=== PATIENT | male | born 1990 | race Caucasian/White ===

== ENCOUNTER 2021-04-24 08:56 | Observation (INO) ==
[2021-04-24] MEDS ORDERED: diphenhydrAMINE 50 MG/ML VIAL IV STA (09:31)
[2021-04-24] MEDS ORDERED: ONDANSETRON INJ 2 MG/ML 2 ML VIAL IV STA (09:31)
[2021-04-24] MEDS ORDERED: SODIUM CHLORIDE 0.9% 1000ML 1,000 ML IV STA (09:31)
[2021-04-24] MEDS ORDERED: KETOROLAC TROMETHAMINE 15 MG/ML VIAL IV STA (09:31)
--- NOTE | 2021-04-24 09:54 | Emergency Department Note ---
Impression & Plan Acute febrile illness, Viral upper respiratory illness, Hives, Urine findings abnormal, Acute dehydration ED Provider Note CHIEF COMPLAINT: Flu-like symptoms, hives HISTORY OF PRESENTING ILLNESS: This is a 30-year-old male who presents to the emergency department by private vehicle with complaint of flu-like symptoms that started 3 days ago. Patient reports symptoms of headaches, body aches, fevers up to 103, and hives that have been off and on, primarily on his arms and legs, but has spread to his abdomen and back today. He reports the hives are itchy. He did not try any medications for the hives. He currently rates his body aches a 9/10. He has been taking ibuprofen and Tylenol for the body aches and fevers with minimal relief. He has not taken any medications today. He also states that he is feeling short of breath at times, mostly with activities, and has had a mild cough and some congestion. He denies a sore throat. He denies ear pain. He denies chest pain. He does have nausea but has not had vomiting or significant diarrhea. He denies urinary complaints. He denies abdominal pain. He is unsure of any sick contacts, and notes that his and children at home have not been ill. He has not received a flu shot or COVID-19 vaccination. He does note that he had COVID-19 infection about a month ago, testing positive on 03/18/2021. He feels that he fully recovered from his Covid infection at that time. He denies any recent travel. He denies hunting or spending time in the [place] and denies any known tick bites in the past few months. He does note that he and his just had a baby about 5 days ago and he spent a few days in the hospital with his during this period. REVIEW OF SYSTEMS: A complete 10 point review of systems was reviewed with the patient with pertinent positives and negatives as per history of present illness. All else were negative. PAST MEDICAL HISTORY: No significant past medical or surgical history SOCIAL HISTORY: Lives at home with family, he denies tobacco use ALLERGIES: No known allergies PHYSICAL EXAM: CONSTITUTIONAL: Pleasant and cooperative. Nontoxic-appearing and in no acute distress. Moderately dehydrated, but otherwise well appearing and well nourished. HEENT: Normocephalic, atraumatic. PERRL, EOMI. TMs normal bilateral. Pharynx is not erythematous, no edema or exudate. Dry mucous membranes. NECK: Supple, full active range of motion without discomfort. No nuchal rigidity or meningismus. No cervical adenopathy. Mild diffuse tenderness of the bilateral paraspinous and trapezius musculature. RESPIRATORY: Clear to auscultation bilaterally with no wheezing, crackles, rhonchi or stridor. No tachypnea or labored breathing, no accessory muscle use. Equal expansion bilaterally. CARDIOVASCULAR: Tachycardic rate, regular rhythm with no murmurs, rubs or gallops. Normal peripheral perfusion, 2+ distal pulses in all 4 extremities. No pitting edema. GASTROINTESTINAL: Soft, nontender to palpation throughout, nondistended. No palpable masses or HSM. Bowel sounds present in all quadrants. No CVA tenderness bilaterally. MUSCULOSKELETAL: Full range of motion of all joints without discomfort. INTEGUMENTARY: Diffuse urticarial rash noted on the bilateral aspects of the trunk, bilateral arms and legs. Blanches. No petechia or purpura. Negative Nikolsky sign. No blistering, pustules, or open areas. No discharge. NEUROLOGIC: Alert and oriented X 4 with normal affect. Cranial nerves II-XII grossly intact, no facial droop. No focal neurologic deficits noted. Normal strength and sensation in all 4 extremities. Normal speech. Normal gait observed. ED COURSE AND MEDICAL DECISION MAKING: CC: Patient presenting with complaint of flu-like symptoms and hives DIFFERENTIAL DIAGNOSIS: Includes, but not limited to viral URI, bronchitis, pneumonia, COVID-19 infection, influenza, dehydration, UTI, tickborne illness, otitis, pharyngitis, meningitis, sepsis, bacteremia, among others. INTERPRETATION OF LABS: No leukocytosis, mild neutrophilia, no anemia, mild thrombocytopenia, mild hyponatremia, no other significant electrolyte abnormalities, normal renal function, normal liver enzymes. Troponin negative. UA shows high specific gravity with 3+ protein, 2+ ketones, positive nitrites, large WBCs/RBCs with large epithelials concerning for contamination. No bacteriuria. Urine culture pending. Influenza A/B negative. EKG: Shows sinus tachycardia with a rate of 103 bpm, normal intervals, no ST elevation or depression, no ectopy by my interpretation. No previous EKGs available for comparison. MEDICATION RECONCILIATION: I attest that I have personally reviewed the patient's current medication list. INITIAL VITAL SIGNS REVIEW: I reviewed the patient's initial vital signs and interpret them as follows: T: Afebrile; BP: Normotensive; HR: Tachycardic; RR: Within normal limits; Pulse Ox: Within normal limits on room air. MDM SUMMARY: Patient was evaluated at bedside, history and physical exam performed. Patient is alert and oriented, in no acute distress, resting calmly in stretcher. He is afebrile, but is noted to be tachycardic and appears to be dehydrated clinically. He is neurologically intact with no focal deficits. No nuchal rigidity or m eningismus on exam. Patient primarily complaining of headaches, body aches, and nausea. No abdomina l tenderness on exam. Patient also complains of a mild cough and feeling short of breath at times, t estella he denies shortness of breath currently. Lungs are clear. No leg pain or swelling, patient is considered low risk for PE, with Well's score of 1.5. Patient does report some fevers at home, clinically he appears consistent with a flulike illness. Influenza ordered. Patient did test positive for COVID-19 about 1 month ago, this was not reordered at this time. Patient was also noticed to have diffuse urticarial rash on torso, arms and legs, which I suspect is also secondary to viral process. Cardiac monitoring: An order was placed for continuous cardiac monitoring. The monitor shows a rate of 105 bpm with sinus tachycardia rhythm. Orders were placed for labs including troponin, influenza, UA, IV fluid bolus x 2L for hydration, IV Toradol for body aches and headache, IV Zofran for nausea, IV Benadryl for hives, chest x-ray and EKG. Patient discussed with Dr. Isaac, who agrees with my assessment, plan, and disposition. Labs and imaging reviewed as above, no leukocytosis with a mild neutrophilia and mild thrombocytopenia, labs otherwise unremarkable. Troponin undetectable. Chest x-ray clear. EKG did not show any acute ischemic changes. Patient was reassessed after receiving fluids and Toradol, initially he appeared to be improved and tachycardia was resolved with heart rate in the 80s-90s. He also noted improvement in headache and body aches, and hives appeared to decrease initially after the IV Benadryl. I reassessed the patient again to discuss plan to discharge home, and the patient is now shivering and complaining of feeling worse. I rechecked his temp and it was 100.1 orally. Tylenol was ordered. I do suspect patient symptoms are most likely viral, however given the appearance of his UA I did feel it was reasonable to treat with a dose of IV Rocephin pending his urine culture and the patient was agreeable to this. This was ordered. Nursing notified that the patient's temp went back up to 39.2 and he is tachycardic in the 130s. He was reassessed by myself and also evaluated by Dr. Isaac, and the patient does appear to look worse on reassessment. Unclear etiology for the patient's febrile illness, his influenza test was negative. I do not clinically suspect bacterial meningitis as there is no meningismus on my exam, and he has been ill for 3 days. He does endorse muscle soreness throughout his neck and upper back, but is noted on several evaluations by myself and Dr. Isaac to have full range of motion of his neck. A viral meningitis could be possible, the option of LP was discussed with the patient by myself and Dr. Isaac, the patient preferred not to have this performed at this time. Additional orders were placed for blood cultures x2, lactic acid, procalcitonin, Lyme antibodies and anaplasmosis, and biofire respiratory panel. Given the patient's persistent worsening condition, I did feel that he warranted admission for further evaluation of his febrile illness. I spoke on the phone with CARLOS Cruz with [facility], who agrees to evaluate the patient for admission. His fever and tachycardia are downtrending after receiving Tylenol and additional IV fluids. The patient was stable at the time of admission. The chart was completed utilizing [employer] Speech voice recognition software. Grammatical errors, random word insertions, pronoun errors, and incomplete sentences are an occasional consequence of this system due to software limitations, ambient noise, and hardware issues. Any formal questions or concerns about the content, text, or information contained within the body of this dictation should be directly addressed to the nurse practitioner for clarification. Attending Attestation: I Silvano Isaac MD independently saw and evaluated this patient and agree with history and physical is otherwise documented by the nurse practitioner. See their note for full details. Patient case discussed with the nurse practitioner midway later through the course in the ER. Patient with 3 days of symptoms and lines of diffuse body pains headaches and generalized weakness. Does have some neck pain but not frankly meningitic. Patient has been observed on his tablet in his bed in no severe distress. Covid positive previously this February. Patient without focal neurological deficits. Does have fevers. No significant leukocytosis. Slight thrombocytopenia and hyponatremia noted. Question some component of dehydration received IV fluid. Given Tylenol here. Urine sample does appear with some contamination however is concerning especial ly with nitrates. Patient has received 2 g of Rocephin for any bacterial UTI coverage here. Patient again very fatigued appearing with weakness and some chills. Tachycardia and rash noted. Believe some component of fever exacerbating these. Symptoms seem more than likely viral in nature. Discussed with the patient option of proceeding possibly with lumbar puncture however feel its unlikely to be bacterial meningitis at this time. At this time the patient wished to wait on lumbar puncture. We will send additional viral respiratory panel as well as inflammatory infectious markers. Given the patient's generalized weakness and fatigue after multiple hours here in the ER believe further observation overnight would be warranted. Past Med/Surg History Medical History (Updated 04/24/21 @ 18:50 by CARLOS Cobb) COVID Surgical History (Updated 03/18/21 @ 16:22 by Eduarda Olsen PA-C) H/O vasectomy 01/2021 Family History Other No significant family history Social History Smoking Status: Never smoker Hx Alcohol Use: No Hx Substance Use: No Preferred Language: Belarusian Communication Ability: Effective Visual Impairment: No Limitations Hearing Ability: Normal Travel Registered Nurse Oncology Required: No marital status: Current Living Situation: Spouse Current Living Situation Comment: and 3 kids current occupational status: unemployed How many Children do You have: 3 Feels Safe at Home: Yes during the past year weight has: increased > 10 lbs Dental Care, Regularly: No Physical Activity Frequency: Does not Exercise Assistive Devices: None Allergies Allergies Allergy/AdvReac Type Severity Reaction Status Date / Time No Known Allergies Allergy Verified 04/24/21 11:18 Home Meds Home Medications Medication Instructions Recorded Confirmed acetaminophen 500 mg tablet 500 mg PO Q6H PRN 04/24/21 04/24/21 Previous Rx's Medication Instructions Recorded ondansetron 4 mg disintegrating 4 mg PO Q8H PRN #10 tab 04/24/21 tablet Results & Data (ED) Vital Signs Vital Signs - 24 hr 04/24/21 08:57 04/24/21 08:58 04/24/21 10:57 Temperature 37.3 C Temperature Source Temporal Artery Scan Pulse Rate 128 H Pulse Rate [Finger] 105 H 97 H Pulse Rhythm [Finger] Regular Regular Pulse Strength [Finger] Normal Normal Respiratory Rate 18 18 18 Respiratory Effort / Characteristics Non-Labored Non-Labored Respiratory Depth Normal Normal Respiratory Pattern Regular Blood Pressure 142/78 H Blood Pressure [Right Arm] 135/87 130/84 Blood Pressure Mean 99 Blood Pressure Mean [Right Arm] 103 99 Blood Pressure Position Sitting Blood Pressure Position [Right Arm] Sitting Sitting Pulse Oximetry 96 96 97 Oxygen Delivery Method Room Air Room Air Room Air Oxygen Flow Rate 96 Sepsis Recent Fever Within 48 Hours No Sepsis New/Unexplained Change in Mental Status No Sepsis Action Taken by Nursing No Action Required 04/24/21 14:00 04/24/21 15:00 Temperature 39.2 C H 38 C H Temperature Source Oral Oral Pulse Rate Pulse Rate [Finger] 123 H 112 H Pulse Rhythm [Finger] Regular Regular Pulse Strength [Finger] Normal Normal Respiratory Rate 20 16 Respiratory Effort / Characteristics Non-Labored Non-Labored Respiratory Depth Normal Normal Respiratory Pattern Regular Regular Blood Pressure Blood Pressure [Right Arm] 148/98 H 123/73 Blood Pressure Mean Blood Pressure Mean [Right Arm] 114 89 Blood Pressure Position Blood Pressure Position [Right Arm] Sitting Lying Pulse Oximetry 96 96 Oxygen Delivery Method Room Air Room Air Oxygen Flow Rate Sepsis Recent Fever Within 48 Hours Sepsis New/Unexplained Change in Mental Status Sepsis Action Taken by Nursing Laboratory Data Result diagrams: 04/24/21 09:46 04/24/21 16:10 Lab Results 04/24/21 04/24/21 04/24/21 Range/Units 09:46 09:46 11:10 WBC 10.51 (4.8-10.8) K/uL RBC 5.18 (4.7-6.1) M/uL Hgb 14.9 (14.0-18.0) g/dL Hct 44.0 (42-52) % MCV 84.9 (80-100) fL MCH 28.8 (25-34) pg MCHC 33.9 (32-36) g/dL RDW Std Deviation 41.1 (36.4-46.3) fL RDW Coeff of Rhoda 13.2 (11.5-14.5) % Plt Count 117 L (130-400) K/uL MPV 10.9 H (7.4-10.4) fL Immature Gran % (Auto) 0.2 % Neut % (Auto) 89.0 % Lymph % (Auto) 4.6 % [place] % (Auto) 5.1 % Eos % (Auto) 1.1 % Baso % (Auto) 0.0 % Neut # (Auto) 9.35 H (1.4-6.5) K/uL Lymph # (Auto) 0.48 L (1.2-3.4) K/uL [place] # (Auto) 0.54 (0.11-0.59) K/uL Eos # (Auto) 0.12 (0-0.5) K/uL Baso # (Auto) 0.00 (0-0.2) K/uL Immature Gran # (Auto) 0.02 (0.00-0.02) K/uL ESR (0-15) mm/hr Sodium 131 L (136-145) mmol/L Potassium 3.8 (3.5-5.1) mmol/L Chloride 99 (98-107) mmol/L Carbon Dioxide 24 (21-32) mmol/L Anion Gap 8.0 (3-11) BUN 17 (7-18) mg/dl Creatinine 1.17 (0.6-1.4) mg/dl Est Cr Clr Drug Dosing 112.0 ml/min Est GFR ( Amer) 97.1 ml/min Est GFR (Non-Af Amer) 83.8 ml/min BUN/Creatinine Ratio 14.7 (10-20) Glucose 134 H (70-99) mg/dl Lactate (0.4-2.0) mmol/L Calcium 9.4 (8.5-10.1) mg/dl Total Bilirubin 0.9 (0.2-1) mg/dl AST 25 (15-37) U/L ALT 51 (12-78) Alkaline Phosphatase 75 (45-117) U/L Total Creatine Kinase (39-308) U/L Troponin I < 0.015 (0-0.045) ng/ml C-Reactive Protein (0-0.29) mg/dl Total Protein 8.1 (6.4-8.2) gm/dl Albumin 3.5 (3.4-5.0) gm/dl Globulin 4.6 H (2.5-4.0) gm/dl Albumin/Globulin Ratio 0.8 L (0.9-2) Procalcitonin (0-0.5) ng/ml Urine Color Urine Appearance (Clear) Urine pH (4.5-7.5) Ur Specific Crosby (1.000-1.030) Urine Protein (Negative) Urine Glucose (UA) (Negative) Urine Ketones (Negative) Urine Blood (Negative) Urine Nitrite (Negative) Urine Bilirubin (Negative) Urine Urobilinogen (Negative) Ur Leukocyte Esterase (Negative) Urine WBC (Auto) (0-5) /hpf Urine RBC (Auto) (0-4) /hpf U Hyaline Cast (Auto) (0-5) /lpf U Epithel Cells (Auto) (0-5) /lpf Urine Bacteria (Auto) (Negative) Ur Renal Epithelial Cell Granular Casts (0) /lpf Adenovirus (PCR) (NotDetected) Anaplasma Smear B. pertussis DNA (PCR) (NotDetected) B.parapertussis DNA PCR (NotDetected) Lyme Disease IgG Ab (Negative) Lyme Disease IgM Ab (Negative) C. pneumoniae DNA (PCR) (NotDetected) Coronavirus OC43 (PCR) (NotDetected) Coronavirus HKU1 (PCR) (NotDetected) Coronavirus 229E (PCR) (NotDetected) SARS-CoV-2 (PCR) (NotDetected) Coronavirus NL63 (PCR) (NotDetected) Human Metapneumovir PCR (NotDetected) Influenza Type A (PCR) (NotDetected) Influ A Molecular Assay Negative (Negative) Influenza Type B (PCR) (NotDetected) Influ B Molecular Assay Negative (Negative) M. pneumoniae (PCR) (NotDetected) Parainfluenza 1 (PCR) (NotDetected) Parainfluenza 2 (PCR) (NotDetected) Parainfluenza 3 (PCR) (NotDetected) Parainfluenza 4 (PCR) (NotDetected) RSV (PCR) (NotDetected) Entero/Rhino (PCR) (NotDetected) 04/24/21 04/24/21 04/24/21 Range/Units 13:05 16:10 16:10 WBC (4.8-10.8) K/uL RBC (4.7-6.1) M/uL Hgb (14.0-18.0) g/dL Hct (42-52) % MCV (80-100) fL MCH (25-34) pg MCHC (32-36) g/dL RDW Std Deviation (36.4-46.3) fL RDW Coeff of Rhoda (11.5-14.5) % Plt Count (130-400) K/uL MPV (7.4-10.4) fL Immature Gran % (Auto) % Neut % (Auto) % Lymph % (Auto) % [place] % (Auto) % Eos % (Auto) % Baso % (Auto) % Neut # (Auto) (1.4-6.5) K/uL Lymph # (Auto) (1.2-3.4) K/uL [place] # (Auto) (0.11-0.59) K/uL Eos # (Auto) (0-0.5) K/uL Baso # (Auto) (0-0.2) K/uL Immature Gran # (Auto) (0.00-0.02) K/uL ESR (0-15) mm/hr Sodium (136-145) mmol/L Potassium (3.5-5.1) mmol/L Chloride (98-107) mmol/L Carbon Dioxide (21-32) mmol/L Anion Gap (3-11) BUN (7-18) mg/dl Creatinine (0.6-1.4) mg/dl Est Cr Clr Drug Dosing ml/min Est GFR ( Amer) ml/min Est GFR (Non-Af Amer) ml/min BUN/Creatinine Ratio (10-20) Glucose (70-99) mg/dl Lactate 1.2 (0.4-2.0) mmol/L Calcium (8.5-10.1) mg/dl Total Bilirubin (0.2-1) mg/dl AST (15-37) U/L ALT (12-78) Alkaline Phosphatase (45-117) U/L Total Creatine Kinase (39-308) U/L Troponin I (0-0.045) ng/ml C-Reactive Protein (0-0.29) mg/dl Total Protein (6.4-8.2) gm/dl Albumin (3.4-5.0) gm/dl Globulin (2.5-4.0) gm/dl Albumin/Globulin Ratio (0.9-2) Procalcitonin (0-0.5) ng/ml Urine Color [place] Urine Appearance Cloudy A (Clear) Urine pH 5.5 (4.5-7.5) Ur Specific Crosby 1.040 H (1.000-1.030) Urine Protein 3+ H (Negative) Urine Glucose (UA) Negative (Negative) Urine Ketones 2+ H (Negative) Urine Blood 1+ H (Negative) Urine Nitrite Positive A (Negative) Urine Bilirubin 1+ H (Negative) Urine Urobilinogen Negative (Negative) Ur Leukocyte Esterase Trace H (Negative) Urine WBC (Auto) 10-30 H (0-5) /hpf Urine RBC (Auto) 10-30 H (0-4) /hpf U Hyaline Cast (Auto) 1-5 (0-5) /lpf U Epithel Cells (Auto) >30 H (0-5) /lpf Urine Bacteria (Auto) Negative (Negative) Ur Renal Epithelial Cell Not Reportable Granular Casts 1-5 H (0) /lpf Adenovirus (PCR) (NotDetected) Anaplasma Smear See Comment B. pertussis DNA (PCR) (NotDetected) B.parapertussis DNA PCR (NotDetected) Lyme Disease IgG Ab (Negative) Lyme Disease IgM Ab (Negative) C. pneumoniae DNA (PCR) (NotDetected) Coronavirus OC43 (PCR) (NotDetected) Coronavirus HKU1 (PCR) (NotDetected) Coronavirus 229E (PCR) (NotDetected) SARS-CoV-2 (PCR) (NotDetected) Coronavirus NL63 (PCR) (NotDetected) Human Metapneumovir PCR (NotDetected) Influenza Type A (PCR) (NotDetected) Influ A Molecular Assay (Negative) Influenza Type B (PCR) (NotDetected) Influ B Molecular Assay (Negative) M. pneumoniae (PCR) (NotDetected) Parainfluenza 1 (PCR) (NotDetected) Parainfluenza 2 (PCR) (NotDetected) Parainfluenza 3 (PCR) (NotDetected) Parainfluenza 4 (PCR) (NotDetected) RSV (PCR) (NotDetected) Entero/Rhino (PCR) (NotDetected) 04/24/21 04/24/21 04/24/21 Range/Units 16:10 16:10 16:10 WBC (4.8-10.8) K/uL RBC (4.7-6.1) M/uL Hgb (14.0-18.0) g/dL Hct (42-52) % MCV (80-100) fL MCH (25-34) pg MCHC (32-36) g/dL RDW Std Deviation (36.4-46.3) fL RDW Coeff of Rhoda (11.5-14.5) % Plt Count (130-400) K/uL MPV (7.4-10.4) fL Immature Gran % (Auto) % Neut % (Auto) % Lymph % (Auto) % [place] % (Auto) % Eos % (Auto) % Baso % (Auto) % Neut # (Auto) (1.4-6.5) K/uL Lymph # (Auto) (1.2-3.4) K/uL [place] # (Auto) (0.11-0.59) K/uL Eos # (Auto) (0-0.5) K/uL Baso # (Auto) (0-0.2) K/uL Immature Gran # (Auto) (0.00-0.02) K/uL ESR 55 H (0-15) mm/hr Sodium (136-145) mmol/L Potassium (3.5-5.1) mmol/L Chloride (98-107) mmol/L Carbon Dioxide (21-32) mmol/L Anion Gap (3-11) BUN (7-18) mg/dl Creatinine (0.6-1.4) mg/dl Est Cr Clr Drug Dosing ml/min Est GFR ( Amer) ml/min Est GFR (Non-Af Amer) ml/min BUN/Creatinine Ratio (10-20) Glucose (70-99) mg/dl Lactate (0.4-2.0) mmol/L Calcium (8.5-10.1) mg/dl Total Bilirubin (0.2-1) mg/dl AST (15-37) U/L ALT (12-78) Alkaline Phosphatase (45-117) U/L Total Creatine Kinase 116 (39-308) U/L Troponin I (0-0.045) ng/ml C-Reactive Protein 17.60 H (0-0.29) mg/dl Total Protein (6.4-8.2) gm/dl Albumin (3.4-5.0) gm/dl Globulin (2.5-4.0) gm/dl Albumin/Globulin Ratio (0.9-2) Procalcitonin 1.37 H (0-0.5) ng/ml Urine Color Urine Appearance (Clear) Urine pH (4.5-7.5) Ur Specific Cros[place] (1.000-1.030) Urine Protein (Negative) Urine Glucose (UA) (Negative) Urine Ketones (Negative) Urine Blood (Negative) Urine Nitrite (Negative) Urine Bilirubin (Negative) Urine Urobilinogen (Negative) Ur Leukocyte Esterase (Negative) Urine WBC (Auto) (0-5) /hpf Urine RBC (Auto) (0-4) /hpf U Hyaline Cast (Auto) (0-5) /lpf U Epithel Cells (Auto) (0-5) /lpf Urine Bacteria (Auto) (Negative) Ur Renal Epithelial Cell Granular Casts (0) /lpf Adenovirus (PCR) (NotDetected) Anaplasma Smear B. pertussis DNA (PCR) (NotDetected) B.parapertussis DNA PCR (NotDetected) Lyme Disease IgG Ab Negative (Negative) Lyme Disease IgM Ab Negative (Negative) C. pneumoniae DNA (PCR) (NotDetected) Coronavirus OC43 (PCR) (NotDetected) Coronavirus HKU1 (PCR) (NotDetected) Coronavirus 229E (PCR) (NotDetected) SARS-CoV-2 (PCR) (NotDetected) Coronavirus NL63 (PCR) (NotDetected) Human Metapneumovir PCR (NotDetected) Influenza Type A (PCR) (NotDetected) Influ A Molecular Assay (Negative) Influenza Type B (PCR) (NotDetected) Influ B Molecular Assay (Negative) M. pneumoniae (PCR) (NotDetected) Parainfluenza 1 (PCR) (NotDetected) Parainfluenza 2 (PCR) (NotDetected) Parainfluenza 3 (PCR) (NotDetected) Parainfluenza 4 (PCR) (NotDetected) RSV (PCR) (NotDetected) Entero/Rhino (PCR) (NotDetected) 04/24/21 04/24/21 Range/Units 16:10 16:15 WBC (4.8-10.8) K/uL RBC (4.7-6.1) M/uL Hgb (14.0-18.0) g/dL Hct (42-52) % MCV (80-100) fL MCH (25-34) pg MCHC (32-36) g/dL RDW Std Deviation (36.4-46.3) fL RDW Coeff of Rhoda (11.5-14.5) % Plt Count (130-400) K/uL MPV (7.4-10.4) fL Immature Gran % (Auto) % Neut % (Auto) % Lymph % (Auto) % [place] % (Auto) % Eos % (Auto) % Baso % (Auto) % Neut # (Auto) (1.4-6.5) K/uL Lymph # (Auto) (1.2-3.4) K/uL [place] # (Auto) (0.11-0.59) K/uL Eos # (Auto) (0-0.5) K/uL Baso # (Auto) (0-0.2) K/uL Immature Gran # (Auto) (0.00-0.02) K/uL ESR (0-15) mm/hr Sodium (136-145) mmol/L Potassium (3.5-5.1) mmol/L Chloride (98-107) mmol/L Carbon Dioxide (21-32) mmol/L Anion Gap (3-11) BUN (7-18) mg/dl Creatinine (0.6-1.4) mg/dl Est Cr Clr Drug Dosing ml/min Est GFR ( Amer) ml/min Est GFR (Non-Af Amer) ml/min BUN/Creatinine Ratio (10-20) Glucose 125 H (70-99) mg/dl Lactate (0.4-2.0) mmol/L Calcium (8.5-10.1) mg/dl Total Bilirubin (0.2-1) mg/dl AST (15-37) U/L ALT (12-78) Alkaline Phosphatase (45-117) U/L Total Creatine Kinase (39-308) U/L Troponin I (0-0.045) ng/ml C-Reactive Protein (0-0.29) mg/dl Total Protein (6.4-8.2) gm/dl Albumin (3.4-5.0) gm/dl Globulin (2.5-4.0) gm/dl Albumin/Globulin Ratio (0.9-2) Procalcitonin (0-0.5) ng/ml Urine Color Urine Appearance (Clear) Urine pH (4.5-7.5) Ur Specific [place] (1.000-1.030) Urine Protein (Negative) Urine Glucose (UA) (Negative) Urine Ketones (Negative) Urine Blood (Negative) Urine Nitrite (Negative) Urine Bilirubin (Negative) Urine Urobilinogen (Negative) Ur Leukocyte Esterase (Negative) Urine WBC (Auto) (0-5) /hpf Urine RBC (Auto) (0-4) /hpf U Hyaline Cast (Auto) (0-5) /lpf U Epithel Cells (Auto) (0-5) /lpf Urine Bacteria (Auto) (Negative) Ur Renal Epithelial Cell Granular Casts (0) /lpf Adenovirus (PCR) Not Detected (NotDetected) Anaplasma Smear B. pertussis DNA (PCR) Not Detected (NotDetected) B.parapertussis DNA PCR Not Detected (NotDetected) Lyme Disease IgG Ab (Negative) Lyme Disease IgM Ab (Negative) C. pneumoniae DNA (PCR) Not Detected (NotDetected) Coronavirus OC43 (PCR) Not Detected (NotDetected) Coronavirus HKU1 (PCR) Not Detected (NotDetected) Coronavirus 229E (PCR) Not Detected (NotDetected) SARS-CoV-2 (PCR) DETECTED A* (NotDetected) Coronavirus NL63 (PCR) Not Detected (NotDetected) Human Metapneumovir PCR Not Detected (NotDetected) Influenza Type A (PCR) Not Detected (NotDetected) Influ A Molecular Assay (Negative) Influenza Type B (PCR) Not Detected (NotDetected) Influ B Molecular Assay (Negative) M. pneumoniae (PCR) Not Detected (NotDetected) Parainfluenza 1 (PCR) Not Detected (NotDetected) Parainfluenza 2 (PCR) Not Detected (NotDetected) Parainfluenza 3 (PCR) Not Detected (NotDetected) Parainfluenza 4 (PCR) Not Detected (NotDetected) RSV (PCR) Not Detected (NotDetected) Entero/Rhino (PCR) Not Detected (NotDetected) Administered Medications Ceftriaxone Sodium 2,000 mg/ (Dextrose) 50 mls @ 100 mls/hr IV Q12H [facility]; Protocol Stop: 05/05/21 01:59 Last Infusion: 04/25/21 03:56 Dose: 0 mls/hr Documented by: [id number] Admin: 04/25/21 01:49 Dose: 100 mls/hr Documented by: [id number] Acyclovir Sodium 750 mg/ (Dextrose) 265 mls @ 250 mls/hr IV Q8H [facility] Stop: 05/04/21 18:29 Last Infusion: 04/25/21 03:56 Dose: 0 mls/hr Documented by: [id number] Admin: 04/25/21 01:57 Dose: 250 mls/hr Documented by: [id number] Infusion: 04/24/21 20:56 Dose: 0 mls/hr Documented by: [id number] Admin: 04/24/21 19:29 Dose: 250 mls/hr Documented by: [id number] Vancomycin HCl 1,000 mg/ (Sodium Chloride) 270 mls @ 200 mls/hr IV Q8H [facility] Stop: 05/05/21 03:59 Last Infusion: 04/25/21 05:18 Dose: 0 mls/hr Documented by: [id number] Admin: 04/25/21 03:56 Dose: 200 mls/hr Documented by: [id number] Ibuprofen (Ibuprofen 600 Mg Tab) 600 mg PO Q8H PRN PRN Reason: fever Stop: 05/24/21 20:40 Last Admin: 04/24/21 20:56 Dose: 600 mg Documented by: [id number] Discontinued Medications Acetaminophen (Acetaminophen 500 Mg Tab) 1,000 mg PO NOW STA Stop: 04/24/21 14:18 Last Admin: 04/24/21 14:35 Dose: 1,000 mg Documented by: [id number] Acetaminophen (Acetaminophen 325 Mg Tab) 650 mg PO NOW STA Stop: 04/24/21 17:47 Last Admin: 04/24/21 19:19 Dose: 650 mg Documented by: [id number] Acetaminophen (Acetaminophen 325 Mg Tab) 650 mg PO Q4H [facility] Stop: 05/24/21 20:40 Last Admin: 04/24/21 23:00 Dose: Not Given Documented by: [id number] Acetaminophen (Acetaminophen 325 Mg Tab) 650 mg PO Q4H [facility] Stop: 04/25/21 07:31 Last Admin: 04/25/21 03:56 Dose: 650 mg Documented by: [id number] Admin: 04/24/21 23:43 Dose: 650 mg Documented by: [id number] Diphenhydramine HCl (Diphenhydramine 50 Mg/Ml Vial) 50 mg IV NOW STA Stop: 04/24/21 09:32 Last Admin: 04/24/21 09:56 Dose: 50 mg Documented by: [id number] Sodium Chloride (Nss 1000ml) 1,000 mls @ 999 mls/hr IV .Q1H1M STA Stop: 04/24/21 10:31 Last Infusion: 04/24/21 10:58 Dose: 999 mls/hr Documented by: [id number] Admin: 04/24/21 09:57 Dose: 999 mls/hr Documented by: [id number] Ceftriaxone Sodium (Rocephin) 2,000 mg in 70 mls @ 140 mls/hr IV NOW STA Stop: 04/24/21 14:46 Last Infusion: 04/24/21 15:06 Dose: 140 mls/hr Documented by: [id number] Admin: 04/24/21 14:36 Dose: 140 mls/hr Documented by: [id number] Sodium Chloride (Nss 1000ml) 1,000 mls @ 999 mls/hr IV .Q1H1M ONE Stop: 04/24/21 16:28 Last Infusion: 04/24/21 17:08 Dose: 999 mls/hr Documented by: [id number] Admin: 04/24/21 16:07 Dose: 999 mls/hr Documented by: [id number] Dexamethasone 10 mg/ Syringe 2.5 mls @ 1 mls/min IV ONE ONE Stop: 04/24/21 17:33 Last Admin: 04/24/21 18:43 Dose: 1 mls/min Documented by: [id number] Vancomycin HCl 2,500 mg/ (Sodium Chloride) 550 mls @ 180 mls/hr IV NOW STA Stop: 04/24/21 20:54 Last Infusion: 04/24/21 23:00 Dose: 0 mls/hr Documented by: [id number] Admin: 04/24/21 19:20 Dose: 180 mls/hr Documented by: [id number] Parenteral Electrolytes (Normosol-R) 1,000 mls @ 90 mls/hr IV .Q11H7M ONE Stop: 04/25/21 05:20 Last Infusion: 04/25/21 06:30 Dose: 0 mls/hr Documented by: [id number] Admin: 04/24/21 19:20 Dose: 90 mls/hr Documented by: [id number] Ibuprofen (Ibuprofen 600 Mg Tab) Confirm Administered Dose 1,200 mg PO .STK-MED ONE Stop: 04/24/21 20:53 Last Admin: 04/24/21 20:56 Dose: Not Given Documented by: [id number] Ketorolac Tromethamine (Ketorolac Tromethamine 15 Mg/Ml Vial) 15 mg IV NOW STA Stop: 04/24/21 09:32 Last Admin: 04/24/21 09:56 Dose: 15 mg Documented by: [id number] Ondansetron HCl (Ondansetron Inj 2 Mg/Ml 2 Ml Vial) 4 mg IV NOW STA Stop: 04/24/21 09:32 Last Admin: 04/24/21 09:57 Dose: 4 mg Documented by: [id number] Imaging Data Radiologist's Impression: Chest X-Ray 04/24/21 09:31 SINGLE VIEW CHEST CLINICAL HISTORY: Dyspnea. FINDINGS: An AP, portable, upright chest radiograph is obtained. No prior studies are available for comparison at the time of dictation. The cardiomediastinal silhouette is unremarkable. The lungs and pleural spaces are clear. No pneumothorax is seen. The bony thorax is grossly intact. IMPRESSION: No active disease in the chest. ACT 112: Negative or not required by law. Electronically signed by: Emeterio Man M.D. 04/24/2021 9:58 AM Discharge Plan Visit Data Chief Complaint: Shortness of Breath/Dyspnea Stated Complaint: HEADACHE, SOB, NAUSEA, HIVES ED Provider: Silvano Isaac ED Midlevel Provider: Jessica Theodore Discharge Problem: Acute febrile illness, Viral upper respiratory illness, Hives, Urine findings abnormal, Acute dehydration Patient Disposition: Admitted As Inpatient Condition: Good Discharge Instructions Interventions: ED Discharge Assessment Last Done: 04/24/21 20:09
--- NOTE | 2021-04-24 10:00 | XRay Report ---
SINGLE VIEW CHEST CLINICAL HISTORY: Dyspnea. FINDINGS: An AP, portable, upright chest radiograph is obtained. No prior studies are available for c omparison at the time of dictation. The cardiomediastinal silhouette is unremarkable. The lungs and pleural spaces are clear. No pneumothorax is seen. The bony thorax is grossly intact. IMPRESSION: No active disease in the chest. ACT 112: Negative or not required by law. Electronically signed by: Emeterio Man M.D. 04/24/2021 9:58 AM
[2021-04-24 10:07] LABS: Eosinophils # (auto) 0.12 K/uL (0-0.5); Eosinophils % (auto) 1.1 %; Hemoglobin 14.9 g/dL (14.0-18.0); Immature Granulocytes # (auto) 0.02 K/uL (0.00-0.02); Immature Granulocytes % (auto) 0.2 %; Lymphocytes # (auto) 0.48 K/uL (1.2-3.4); Lymphocytes % (auto) 4.6 %; Mean Corpuscular Hemoglobin 28.8 pg (25-34); Mean Corpuscular Hgb Conc 33.9 g/dL (32-36); Mean Corpuscular Volume 84.9 fL (80-100); Mean Platelet Volume 10.9 fL (7.4-10.4); Monocytes # (auto) 0.54 K/uL (0.11-0.59); Monocytes % (auto) 5.1 %; Neutrophils # (auto) 9.35 K/uL (1.4-6.5); Platelet Count 117 K/uL (130-400); RDW Coefficient of Variation 13.2 % (11.5-14.5); RDW Standard Deviation 41.1 fL (36.4-46.3); Red Blood Count 5.18 M/uL (4.7-6.1); White Blood Count 10.51 K/uL (4.8-10.8)
[2021-04-24 10:24] LABS: Alanine Aminotransferase 51 (12-78); Albumin Level 3.5 gm/dl (3.4-5.0); Aspartate Aminotransferase 25 U/L (15-37); BUN Creatinine Ratio 14.7 (10-20); Blood Urea Nitrogen 17 mg/dl (7-18); Calcium 9.4 mg/dl (8.5-10.1); Carbon Dioxide 24 mmol/L (21-32); Chloride 99 mmol/L (98-107); Est GFR (African American) 97.1 ml/min; Est GFR (Non-African American) 83.8 ml/min; Glucose 134 mg/dl (70-99); Potassium 3.8 mmol/L (3.5-5.1); Sodium 131 mmol/L (136-145)
[2021-04-24 10:29] LABS: Albumin Globulin Ratio 0.8 (0.9-2); Alkaline Phosphatase 75 U/L (45-117); Bilirubin,Total 0.9 mg/dl (0.2-1); Globulin 4.6 gm/dl (2.5-4.0); Total Protein 8.1 gm/dl (6.4-8.2); Troponin I < 0.015 ng/ml (0-0.045)
--- NOTE | 2021-04-24 11:24 | Electrocardiogram Report ---
Test Reason : Blood Pressure : / mmHG Vent. Rate : 103 BPM Atrial Rate : 103 BPM P-R Int : 152 ms QRS Dur : 082 ms QT Int : 346 ms P-R-T Axes : 034 024 012 degrees QTc Int : 453 ms Sinus tachycardia Otherwise normal ECG No previous ECGs available Confirmed by Isaiah Cain ([id number]) on 04/24/2021 11:24:10 AM Referred By: Confirmed By:Jose Cain
[2021-04-24 12:28] LABS: Influenza A virus by PCR Negative (Negative); Influenza B virus by PCR Negative (Negative)
[2021-04-24 13:28] LABS: Appearance Urine Cloudy (Clear); Bacteria Urine Automated Negative (Negative); Blood Urine 1+ (Negative); Color Urine Orange; Epithelial Cell Urine Auto >30 /lpf (0-5); Glucose Urine UA Negative (Negative); Ketones Urine 2+ (Negative); Leukocyte Esterase Urine Trace (Negative); Nitrite Urine Positive (Negative); Protein Urine 3+ (Negative); Urobilinogen Urine Negative (Negative); pH Urine 5.5 (4.5-7.5)
[2021-04-24 13:40] LABS: Bilirubin Urine 1+ (Negative)
[2021-04-24] MEDS ORDERED: cefTRIAXone SODIUM 2,000 MG/70 ML BAG IV STA (14:17)
[2021-04-24] MEDS ORDERED: ACETAMINOPHEN 500 MG TAB PO STA (14:17)
[2021-04-24] MEDS ORDERED: SODIUM CHLORIDE 0.9% 1000ML 1,000 ML IV ONE (15:28)
[2021-04-24 16:39] LABS: C Reactive Protein 17.6 mg/dl (0-0.29)
--- NOTE | 2021-04-24 17:00 | CT Scan Report ---
CT abd pelvis wo con CLINICAL HISTORY: febrile, evaluate for possible renal abscess, prostatits, COMPARISON STUDY: No previous studies for comparison. CT DOSE: 705.02 mGy.cm TECHNIQUE: Standard CT of the Abdomen and Pelvis was performed without IV contrast. The patient did not receive oral contrast. A dose lowering technique was utilized adhering to the principles of BERTIN Mabry FINDINGS: Lung base: The lung bases are clear. Abdominal cavity: There is no evidence for abdominal mass, adenopathy or ascites. Liver: The liver is homogeneous in increased attenuation on these limited noncontrast images..The fin dings are characteristic of fatty infiltration. Spleen: The spleen is homogeneous in attenuation on these limited noncontrast images. Pancreas: The pancreas is homogeneous in attenuation on these limited noncontrast images. Gall Bladder: The gallbladder is well distended with no evidence for cholelithiasis, wall thickening or pericholecystic edema.. Adrenal glands: The adrenal glands are normal in size and attenuation on these limited noncontrast im ages. Kidneys: The kidneys are homogeneous in attenuation on these limited noncontrast images. There is no evidence for gross renal mass, calculus or hydronephrosis bilaterally. Bowel: The bowel loops are normally placed within the abdomen and pelvis without evidence for dilatat ion or obstruction. There is no evidence for mass lesion. There are no inflammatory changes present. There is no evidence for free air. There is a normal appendix in the right lower quadrant. Bladder: There is no evidence for focal bladder wall thickening, calculus or diverticulum. : There is no evidence for pelvic mass or adenopathy. The prostate is sharply defined. Vasculature: There is no evidence for focal aneurysmal dilatation of the abdominal aorta. Osseous structures: There is no acute osseous pathology. IMPRESSION: 1. The study is limited by lack of intravenous contrast. However, there is no CT evidence suggestive of renal abscess or prostatitis. 2. Otherwise, no acute intra-abdominal or pelvic abnormality on these limited noncontrast images. ACT 112: Negative or not required by law. Electronically signed by: Kelton Gold M.D. 04/24/2021 4:58 PM
[2021-04-24 17:23] LABS: Adenovirus PCR Not Detected (NotDetected); Bordetella parapertussis PCR Not Detected (NotDetected); Bordetella pertussis PCR Not Detected (NotDetected); Chlamydia pneumoniae PCR Not Detected (NotDetected); Coronavirus 229E PCR Not Detected (NotDetected); Coronavirus HKU1 PCR Not Detected (NotDetected); Coronavirus NL63 PCR Not Detected (NotDetected); Coronavirus OC43PCR Not Detected (NotDetected); Human Metapneumovirus PCR Not Detected (NotDetected); Influenza A PCR Not Detected (NotDetected); Influenza B PCR Not Detected (NotDetected); Mycoplasma pneumoniae PCR Not Detected (NotDetected); Parainfluenza Virus 1 PCR Not Detected (NotDetected); Parainfluenza Virus 2 PCR Not Detected (NotDetected); Parainfluenza Virus 3 PCR Not Detected (NotDetected); Parainfluenza Virus 4 PCR Not Detected (NotDetected); Respiratory Syncytial VirusPCR Not Detected (NotDetected); Rhinovirus/Enterovirus PCR Not Detected (NotDetected)
[2021-04-24 17:27] LABS: Procalcitonin 1.37 ng/ml (0-0.5)
[2021-04-24] MEDS ORDERED: dexAMETHasone 10 MG in SYRINGE 0 ML IV ONE (17:31)
[2021-04-24] MEDS ORDERED: VANCOMYCIN HCL 1 MG in SODIUM CHLORIDE 0.9% 250 ML IV SCH (17:31)
[2021-04-24] MEDS ORDERED: VANCOMYCIN CONSULT ACTIVE PRN ×2 (17:31)
[2021-04-24 17:32] LABS: Coronavirus CoV-2 (COVID19)PCR DETECTED (NotDetected)
[2021-04-24 17:33] LABS: Lyme Ab IgG w/WB Rflx Negative (Negative); Lyme Ab IgM w/WB Rflx Negative (Negative)
[2021-04-24] MEDS ORDERED: ACYCLOVIR SOD IV ONE (17:33)
[2021-04-24] MEDS ORDERED: DEXTROSE 5% IV ONE (17:33)
[2021-04-24] MEDS ORDERED: ACETAMINOPHEN 325 MG TAB PO STA (17:46)
[2021-04-24] MEDS ORDERED: VANCOMYCIN HCL 2,500 MG in SODIUM CHLORIDE 0.9% 500 ML IV STA (17:51)
[2021-04-24 18:02] LABS: Appearance CSF Clear; CSF Xanthrochromic No xanthochromia; Color CSF Colorless; Red Blood Cell CSF (A) 0 /uL (0-); White Blood Cell CSF (A) 2 /uL (0-5)
[2021-04-24 18:04] LABS: CSF Count Tube # 3
--- NOTE | 2021-04-24 18:04 | History & Physical Report ---
Date of Service April 24, 2021 Assessment & Plan (1) Meningitis: Plan: Patient with 3 day history of fevers, headache with nausea and vomiting, rash and dizziness- Priority is to rule in/out meningitis with treatment - Undifferentiated at this time- WBC are 10 with elevated NLR so will treat with 2 GM Rocephin q12, Vancomycin pharmacy to dose, Acyclovir 10mg/kg q8 - LP performed at bedside by Dr. Olivo, no opening pressure obtained as procedure performed with patient in sitting position. - Decadron 10mg IV given - Unasyn if listeria concern arises - Control fever with scheduled Tylenol, Motrin PRN in between tylenol dosing, may need cooling blanket - No focal deficits, but with neck stiffness and pain with flexion that radiates to occiput and front of head - mild photopia Could consider MRI in morning (2) Macular rash: Plan: Secondary to infective cause - further tick borne disease panel sent to include ehrlichiosis and [place] spotted fever - May be associated with #1 - eosinophils and renal function are normal (3) COVID: Plan: Remains COVID positive with original infection in February. Not vaccinated - ? Re-infection this early post origianl exposure (4) Acute febrile illness: Plan: As above - Viral biofire- negative - ehrlichiosis pending - anaplasmosis smear negative- DNA pending - Lyme negative - CRP- 17.6 and PCT 1.37 - CXR negative and CT abdomen and pelvis negative for renal abscess or prostatitis (5) Abnormal finding on urinalysis: Plan: + LE, + NIt, + Protein and RBC- contaminated with >30 epis and WBC 10-30 with negative bacteria - culture is pending - resend sample in the morning (6) Acute dehydration: Plan: Secondary to illness- Normosol at 90ml/hour overnight (7) DVT prophylaxis: Plan: SCDs hold chemoprophylaxis following LP tonight History of Present Illness Primary Care Provider: CLAY PCP 30 YOM with past medical history of: COVID 19 in February, Vasectomy. Patient comes to the EMD today for complaints of rash, fevers, and headaches. The patient states that he had COVID in February and was sick for 10 days and had felt better up until [id number]. He noted a headache that was constant and located on the front, top, and back of his head- this was then followed by nausea and vomiting. Patient then started to feel very warm and feverish with chills. He checked his temperature 1 time at home and noted it to be 103, attempted to manage with Tylenol and Motrin without effect. Following the fever he started to get a rash that initially itched and was on his hands and arms, this then continued to spread to his chest, groin and legs. He also endorses continued body aches all over more so in his feet, arms, shoulders, and neck. He continues to have a 6-8/10 headache, mild photophobia, neck stiffness and pain with flexion of his neck to his chest. His rash is macular along his arms and macular papular to his chest and groin that blanches. Patient received 2GM Rocephin by [facility] prior to admission. A LP was performed at the bedside by Dr. Olivo and cultures have been sent (Rocephin administered prior to LP). He has had routine viral panel in the [facility] that was negative for RSV and Influenza. Added on COVID biofire- blood cultures pending, CRP was 17, PCT 1.37. Routine tick borne labs also sent, added on ehrlichiosis and [place] mountain. Patient concerning for meningitis currently undifferentiated. Will give 10mg Decadron, Acyclovir 10mg/kg q8, Vancomycin load and daily, and Rocephin 2GM IV q12 hours. He remains positive for his COVID as well, will continue isolation precautions for both undifferentiated meningitis and COVID. Patient has 4 children and at home, none of the rest of his family is sick. 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 On he did go visit family members locally and there were multiple children there that attend daycare including his own that attend daycare- they are not ill that he knows of either. He has a dog but does not endorse any ticks or other bites or uctler. His pet does not sleep with him. He denies any other trauma, scrapes, or cuts. No other travel noted. He had [place] [employer] [place] for dinner on - with no one else as above feeling ill. He has not started any new medications and is not taking any other supplementation. He remains febrile to 38 degrees here and tachycardic- WBC 10 with elevated NLR. He does have UA that is + LE, Nitrites, +blood and 3+ protein. CT scan of abdomen and pelvis completed with renal abscess or prostatitis or other acute process. ABX as above, urinary culture is pending. CXR is clear. Allergies Allergy/AdvReac Type Severity Reaction Status Date / Time No Known Allergies Allergy Verified 04/24/21 11:18 Home Medications Medication Instructions Recorded Confirmed Type acetaminophen 500 mg tablet 500 mg PO Q6H PRN 04/24/21 04/24/21 History ondansetron 4 mg disintegrating 4 mg PO Q8H PRN #10 tab 04/24/21 Rx tablet Past Med/Surg History Medical History (Updated 04/24/21 @ 18:50 by CARLOS Cobb) COVID Surgical History (Updated 03/18/21 @ 16:22 by Eduarda Olsen PA-C) H/O vasectomy 01/2021 Family History Other No significant family history Social History Smoking Status: Never smoker Hx Alcohol Use: No Hx Substance Use: No Preferred Language: Niuean Communication Ability: Effective Visual Impairment: No Limitations Hearing Ability: Normal marital status: Current Living Situation: Family Current Living Situation Comment: and 3 kids current occupational status: unemployed How many Children do You have: 3 Feels Safe at Home: Yes during the past year weight has: increased > 10 lbs Dental Care, Regularly: No Physical Activity Frequency: Does not Exercise Review of Systems Review of Systems: REVIEW OF SYSTEMS: Constitutional: (+) fever, sweats or chills, headache, photosensitivity mild Eyes: No diplopia, no worsening or blurred vision ENT: normal hearing, no trouble swallowing Respiratory: (+) dyspnea on exertion, No cough, sputum, dyspnea at rest Cardiovascular: No chest pain, tightness or palpitations Abdomen: (+) left lower quad pain, nausea, NO vomiting, diarrhea or constipation Musculoskeletal: (+) joint pain, calf pain, swelling Neurologic: (+) OJEDA and dizziness, No weakness, numbness/tingling, or balance problems Psychiatric: No anxiety or depression Skin: (+) rash or itch Physical Exam Physical Exam: PHYSICAL EXAM: General: awake, alert, fatigued appearing Head: Normocephalic, atraumatic ENT: PERRL, EOMI, no pharyngeal exudate, mucous membranes moist Neuro: Frontal and occipital headache, AAO x 3, speech clear and appropriate, strength intact bilaterally 5/5, sensation intact and equal all extremities and dermatomes, no pronator drift Chest: equal rise and fall of the chest, no accessory muscle use, no heaves or thrills, Clear to auscultation, on room air, Cardiac: Regular rate and rhythm, telemetry reviewed, skin warm dry, cap refill <3 seconds, peripheral pusles +2 no JVD, no murmur, no JVD, no edema GI: NABS x 4 quadrants, soft, nontender to palpation, no rebound, guarding or tenderness : Spontaneously voiding, no pain, no CVA tenderness, Extremities: Normal inspection, no peripheral edema or erythema, calfs nontender to palpation Psych: Normal mood and affect Skin: no rash or erythema Results & Data Results & Data ([facility]) Vital Signs (Past 12 Hours) Vital Signs Temp Pulse Pulse Resp BP BP Pulse Ox 04/24/21 15:00 38 C H 112 H 16 123/73 96 04/24/21 14:00 39.2 C H 123 H 20 148/98 H 96 04/24/21 10:57 97 H 18 130/84 97 04/24/21 08:58 37.3 C 128 H 18 142/78 H 96 04/24/21 08:57 105 H 18 135/87 96 Laboratory Results Abnormal lab results 04/24/21 04/24/21 04/24/21 Range/Units 09:46 09:46 13:05 Plt Count 117 L (130-400) K/uL MPV 10.9 H (7.4-10.4) fL Neut # (Auto) 9.35 H (1.4-6.5) K/uL Lymph # (Auto) 0.48 L (1.2-3.4) K/uL ESR (0-15) mm/hr Sodium 131 L (136-145) mmol/L Glucose 134 H (70-99) mg/dl C-Reactive Protein (0-0.29) mg/dl Globulin 4.6 H (2.5-4.0) gm/dl Albumin/Globulin Ratio 0.8 L (0.9-2) Procalcitonin (0-0.5) ng/ml Urine Appearance Cloudy A (Clear) Ur Specific [place] 1.040 H (1.000-1.030) Urine Protein 3+ H (Negative) Urine Ketones 2+ H (Negative) Urine Blood 1+ H (Negative) Urine Nitrite Positive A (Negative) Urine Bilirubin 1+ H (Negative) Ur Leukocyte Esterase Trace H (Negative) Urine WBC (Auto) 10-30 H (0-5) /hpf Urine RBC (Auto) 10-30 H (0-4) /hpf U Epithel Cells (Auto) >30 H (0-5) /lpf Granular Casts 1-5 H (0) /lpf CSF Glucose (40-70) mg/dl SARS-CoV-2 (PCR) (NotDetected) 04/24/21 04/24/21 04/24/21 Range/Units 16:10 16:10 16:10 Plt Count (130-400) K/uL MPV (7.4-10.4) fL Neut # (Auto) (1.4-6.5) K/uL Lymph # (Auto) (1.2-3.4) K/uL ESR 55 H (0-15) mm/hr Sodium (136-145) mmol/L Glucose (70-99) mg/dl C-Reactive Protein 17.60 H (0-0.29) mg/dl Globulin (2.5-4.0) gm/dl Albumin/Globulin Ratio (0.9-2) Procalcitonin 1.37 H (0-0.5) ng/ml Urine Appearance (Clear) Ur Specific [place] (1.000-1.030) Urine Protein (Negative) Urine Ketones (Negative) Urine Blood (Negative) Urine Nitrite (Negative) Urine Bilirubin (Negative) Ur Leukocyte Esterase (Negative) Urine WBC (Auto) (0-5) /hpf Urine RBC (Auto) (0-4) /hpf U Epithel Cells (Auto) (0-5) /lpf Granular Casts (0) /lpf CSF Glucose (40-70) mg/dl SARS-CoV-2 (PCR) (NotDetected) 04/24/21 04/24/2121 Range/Units 16:10 16:15 Unknown Plt Count (130-400) K/uL MPV (7.4-10.4) fL Neut # (Auto) (1.4-6.5) K/uL Lymph # (Auto) (1.2-3.4) K/uL ESR (0-15) mm/hr Sodium (136-145) mmol/L Glucose 125 H (70-99) mg/dl C-Reactive Protein (0-0.29) mg/dl Globulin (2.5-4.0) gm/dl Albumin/Globulin Ratio (0.9-2) Procalcitonin (0-0.5) ng/ml Urine Appearance (Clear) Ur Specific [place] (1.000-1.030) Urine Protein (Negative) Urine Ketones (Negative) Urine Blood (Negative) Urine Nitrite (Negative) Urine Bilirubin (Negative) Ur Leukocyte Esterase (Negative) Urine WBC (Auto) (0-5) /hpf Urine RBC (Auto) (0-4) /hpf U Epithel Cells (Auto) (0-5) /lpf Granular Casts (0) /lpf CSF Glucose 73 H (40-70) mg/dl SARS-CoV-2 (PCR) DETECTED A* (NotDetected) Diagnostic Findings Chest X-Ray 04/24/21 09:31 SINGLE VIEW CHEST CLINICAL HISTORY: Dyspnea. FINDINGS: An AP, portable, upright chest radiograph is obtained. No prior studies are available for comparison at the time of dictation. The cardiomediastinal silhouette is unremarkable. The lungs and pleural spaces are clear. No pneumothorax is seen. The bony thorax is grossly intact. IMPRESSION: No active disease in the chest. ACT 112: Negative or not required by law. Electronically signed by: Emeterio Man M.D. 04/24/2021 9:58 AM Abdomen/Pelvis CT 04/24/21 16:09 CT abd pelvis wo con CLINICAL HISTORY: febrile, evaluate for possible renal abscess, prostatits, COMPARISON STUDY: No previous studies for comparison. CT DOSE: 705.02 mGy.cm TECHNIQUE: Standard CT of the Abdomen and Pelvis was performed without IV contrast. The patient did not receive oral contrast. A dose lowering technique was utilized adhering to the principles of ALARA. FINDINGS: Lung base: The lung bases are clear. Abdominal cavity: There is no evidence for abdominal mass, adenopathy or ascites. Liver: The liver is homogeneous in increased attenuation on these limited noncontrast images..The findings are characteristic of fatty infiltration. Spleen: The spleen is homogeneous in attenuation on these limited noncontrast images. Pancreas: The pancreas is homogeneous in attenuation on these limited noncontrast images. Gall Bladder: The gallbladder is well distended with no evidence for cholelit hiasis, wall thickening or pericholecystic edema.. Adrenal glands: The adrenal glands are normal in size and attenuation on these limited noncontrast images. Kidneys: The kidneys are homogeneous in attenuation on these limited noncontrast images. There is no evidence for gross renal mass, calculus or hydronephrosis bilaterally. Bowel: The bowel loops are normally placed within the abdomen and pelvis without evidence for dilatation or obstruction. There is no evidence for mass lesion. There are no inflammatory changes present. There is no evidence for free air. There is a normal appendix in the right lower quadrant. Bladder: There is no evidence for focal bladder wall thickening, calculus or diverticulum. : There is no evidence for pelvic mass or adenopathy. The prostate is sharply defined. Vasculature: There is no evidence for focal aneurysmal dilatation of the abdominal aorta. Osseous structures: There is no acute osseous pathology. IMPRESSION: 1. The study is limited by lack of intravenous contrast. However, there is no CT evidence suggestive of renal abscess or prostatitis. 2. Otherwise, no acute intra-abdominal or pelvic abnormality on these limited noncontrast images. ACT 112: Negative or not required by law. Electronically signed by: Kelton Gold M.D. 04/24/2021 4:58 PM Medications Administered Discontinued Medications Acetaminophen (Acetaminophen 500 Mg Tab) 1,000 mg PO NOW STA Stop: 04/24/21 14:18 Last Admin: 04/24/21 14:35 Dose: 1,000 mg Documented by: [id number] Diphenhydramine HCl (Diphenhydramine 50 Mg/Ml Vial) 50 mg IV NOW STA Stop: 04/24/21 09:32 Last Admin: 04/24/21 09:56 Dose: 50 mg Documented by: [id number] Sodium Chloride (Nss 1000ml) 1,000 mls @ 999 mls/hr IV .Q1H1M STA Stop: 04/24/21 10:31 Last Infusion: 04/24/21 10:58 Dose: 999 mls/hr Documented by: [id number] Admin: 04/24/21 09:57 Dose: 999 mls/hr Documented by: [id number] Ceftriaxone Sodium (Rocephin) 2,000 mg in 70 mls @ 140 mls/hr IV NOW STA Stop: 04/24/21 14:46 Last Infusion: 04/24/21 15:06 Dose: 140 mls/hr Documented by: [id number] Admin: 04/24/21 14:36 Dose: 140 mls/hr Documented by: [id number] Sodium Chloride (Nss 1000ml) 1,000 mls @ 999 mls/hr IV .Q1H1M ONE Stop: 04/24/21 16:28 Last Infusion: 04/24/21 17:08 Dose: 999 mls/hr Documented by: [id number] Admin: 04/24/21 16:07 Dose: 999 mls/hr Documented by: [id number] Ketorolac Tromethamine (Ketorolac Tromethamine 15 Mg/Ml Vial) 15 mg IV NOW STA Stop: 04/24/21 09:32 Last Admin: 04/24/21 09:56 Dose: 15 mg Documented by: [id number] Ondansetron HCl (Ondansetron Inj 2 Mg/Ml 2 Ml Vial) 4 mg IV NOW STA Stop: 04/24/21 09:32 Last Admin: 04/24/21 09:57 Dose: 4 mg Documented by: [id number] Home Medications acetaminophen 500 mg tablet 500 mg PO Q6H PRN 04/24/21 [History Confirmed 04/24/21] ondansetron 4 mg disintegrating tablet 4 mg PO Q8H PRN #10 tab 04/24/21 [Rx] Active Medications Acetaminophen (Acetaminophen 325 Mg Tab) 650 mg PO NOW STA Stop: 04/24/21 17:47 Ceftriaxone Sodium 2,000 mg/ (Dextrose) 50 mls @ 100 mls/hr IV Q12H ISABELA; Protocol Stop: 05/05/21 01:59 Vancomycin HCl 2,500 mg/ (Sodium Chloride) 550 mls @ 180 mls/hr IV NOW STA Stop: 04/24/21 20:54 Acyclovir Sodium 750 mg/ (Dextrose) 265 mls @ 250 mls/hr IV Q8H ISABELA Stop: 05/04/21 18:29 Parenteral Electrolytes (Normosol-R) 1,000 mls @ 90 mls/hr IV .Q11H7M ONE Stop: 04/25/21 05:20 Miscellaneous Information (Vancomycin Consult Active) 1 ea N/A UD PRN PRN Reason: Consult Stop: 05/24/21 17:30 ECG Additional Comments: Vent. Rate : 103 BPM Atrial Rate : 103 BPM P-R Int : 152 ms QRS Dur : 082 ms QT Int : 346 ms P-R-T Axes : 034 024 012 degrees QTc Int : 453 ms Sinus tachycardia Otherwise normal ECG No previous ECGs available Confirmed by Isaiah Cain ([id number]) on 04/24/2021 11:24:10 AM Supervising Physician Co-Signing Physician Notes Patient seen and examined, chart reviewed, case discussed with Get Malhotra and I agree with the assessment and plan as above except as otherwise noted General: A&Ox3. NAD. Cooperative. Skin: Diffuse macular rash present on hands, feet, trunk distributed more on the flanks with sparing of the posterior midline, and bilateral lower back. Not itchy, nontender, does tawana. Petechiae not appreciated. HEENT: Atraumatic, normocephalic. Visuual acuity and hearing intact. See below for neuro. Pulm: Symmetrical chest rise. No increase work of breathing. No respiratory distress. Cardiac: Regular, tachycardic. Radial pulses intact and symmetrical. Abdominal: Nontender, nondistended, soft. BS present. Neuro: Patient does endorse photosensitivity. Pupils equal and reactive to light, sensitive to light on exam. EOM intact without nystagmus. Patient with some neck stiffness/pain on neck flexion. CRANIAL NERVES: normal sensation in V1, V2, and V3 segments bilaterally no asymmetry, no nasolabial fold flattening normal hearing to speech normal palatal elevation, no uvular deviation 5/5 head turn MOTOR: RUE: 5/5 soap slabber strength LUE: 5/5 soap slabber strength RLE: 5/5 to ankle dorsiflexion/plantarflexion LLE: 5/5 to ankle dorsiflexion/plantarflexion SENSORY: Normal to touch in upper and lower extremities without deficit or asymmetry Patient presents with 3 days of worsening headache, nausea, vomiting, hematuria, and rash concerning for infectious meningitis with ddx including tick borne illness. He has felt warm with intermittent fevers and chills. On exam he does display signs concerning for meningitis including light sensitivity, neck stiffness, in addition to his clinical presentation and fever of up to 103. No recent travel, no tick bites, does live with 4 children none of whom are sick. LP obtained, studies including fluid analysis, bacterial culture, Lyme, CMV/HSV, Erlichia, enterovirus, [place] labs ordered. We will continue meningitis dosing of Rocephin, acyclovir, vanc at this time. Concurrent dexamethasone given along with antibiotics. BC pending. PG Care Time/CCT Total # of Minutes Spent Total Time Spent with Patient: Total time spent is greater than 50% in coordination of care (as documented) at patient's floor/unit and/or counseling patient: Coding Level of Care Code 77093 Initial Inpt Care Lvl 3 Diagnoses Meningitis G03.9 Macular rash R21 COVID U07.1 Acute febrile illness R50.9 Acute dehydration E86.0 Abnormal finding on urinalysis R82.90 DVT prophylaxis Z29.9
[2021-04-24 18:08] LABS: Total Protein CSF 39.7 mg/dl (15-45)
[2021-04-24] MEDS ORDERED: NORMOSOL-R 1,000 ML IV ONE (18:14)
[2021-04-24] MEDS: ACYCLOVIR SOD 750 MG in DEXTROSE 5% 250 ML IV SCH (19:29)
[2021-04-24] MEDS ORDERED: ACETAMINOPHEN 325 MG TAB PO SCH (20:41)
[2021-04-24] MEDS ORDERED: IBUPROFEN 600 MG TAB PO PRN (20:41)
[2021-04-24] MEDS ORDERED: ACETAMINOPHEN HOME PACK 500 MG TABLET PO PRN (20:41)
[2021-04-24] MEDS ORDERED: ONDANSETRON INJ 2 MG/ML 2 ML VIAL IV PRN (20:41)
[2021-04-24] MEDS ORDERED: IBUPROFEN 600 MG TAB PO ONE (20:52)
[2021-04-24] MEDS ORDERED: Nursing to Pharmacy Communication SCH (21:45)
[2021-04-24] MEDS: ACETAMINOPHEN 325 MG TAB PO SCH (23:43)
[2021-04-25] MEDS ORDERED: ACYCLOVIR SOD IV SCH (01:00)
[2021-04-25] MEDS ORDERED: DEXTROSE 5% IV SCH (01:00)
[2021-04-25] MEDS: ACYCLOVIR SOD 750 MG in DEXTROSE 5% 250 ML IV SCH ×2 (01:57→09:23)
[2021-04-25] MEDS ORDERED: cefTRIAXone SODIUM 2,000 MG in DEXTROSE 5% 50 ML IV SCH (02:00)
[2021-04-25] MEDS: ACETAMINOPHEN 325 MG TAB PO SCH ×2 (03:56→09:23)
[2021-04-25] MEDS ORDERED: VANCOMYCIN HCL 1,000 MG in SODIUM CHLORIDE 0.9% 250 ML IV SCH (04:00)
[2021-04-25 07:59] LABS: Creatinine Clr Calc Pharmacy 133.7 ml/min; Est GFR (African American) 120.3 ml/min; Est GFR (Non-African American) 103.8 ml/min
--- NOTE | 2021-04-25 08:08 | Procedure Note ---
Procedure Note Date of Service April 24, 2021 Note Procedure Date: Noted above Procedure: Lumbar puncture Pre-procedure Diagnosis: Headache possible meningitis Post-procedure Diagnosis: same as above Prior to Procedure: Informed Consent: The risks, benefits, indications, potential complications, and alternatives were explained to the patient and informed consent obtained. Attending Staff: Reggie Olivo DO Resident/Physician Compensation Coordinator: [place] Indications: Headache fever rash concern for meningitis The identity of the patient was confirmed and a bedside time out was performed. Description of Procedure: Patient was positioned in the upright position, prepped and draped in usual sterile fashion. The L3-4 space located with bilateral iliac crests as landmarks. 1% Lidocaine without epinephrine was used to anesthetize the area. A 18 gauge spinal needle was introduced into the subarachnoid space. Stylet was removed with appropriate fluid return. Needle removed after adequate fluid collected and sterile bandage placed at puncture site. 6 mL of CSF fluid collected. Fluid was clear. Specimen(s): Four tubes specimens obtained 1 cc in each tube orders placed by hospitalist service Complications: None immediate Findings: Clear spinal tap Estimated Blood Loss: trace Coding CPT Codes Neurology - Neurology: 60043 Lumbar Puncture, diagnostic ([id number]) [facility] Procedure Codes (Charges) Neurology Neurology: 55737 Lumbar Puncture, diagnostic
[2021-04-25] MEDS ORDERED: CALCIUM CARBONATE 500 MG CHEWABLE TAB PO PRN (09:41)
[2021-04-25] MEDS ORDERED: FAMOTIDINE 20 MG TAB PO SCH (10:00)
[2021-04-25] MEDS ORDERED: ACETAMINOPHEN 325 MG TAB PO SCH (14:30)
--- NOTE | 2021-04-25 15:43 | Discharge Summary ---
Date of Service April 25, 2021 Admission HPI Per Admitting Provider 30 YOM with past medical history of: COVID 19 in February, Vasectomy. Patient comes to the [facility] today for complaints of rash, fevers, and headaches. The patient states that he had COVID in February and was sick for 10 days and had felt better up until [id number]. He noted a headache that was constant and located on the front, top, and back of his head- this was then followed by nausea and vomiting. Patient then started to feel very warm and feverish with chills. He checked his temperature 1 time at home and noted it to be 103, attempted to manage with Tylenol and Motrin without effect. Following the fever he started to get a rash that initially itched and was on his hands and arms, this then continued to spread to his chest, groin and legs. He also endorses continued body aches all over more so in his feet, arms, shoulders, and neck. He continues to have a 6-8/10 headache, mild photophobia, neck stiffness and pain with flexion of his neck to his chest. His rash is macular along his arms and macular papular to his chest and groin that blanches. Patient received 2GM Rocephin by [facility] prior to admission. A LP was performed at the bedside by Dr. Olivo and cultures have been sent (Rocephin administered prior to LP). He has had routine viral panel in the [facility] that was negative for RSV and Influenza. Added on COVID biofire- blood cultures pending, CRP was 17, PCT 1.37. Routine tick borne labs also sent, added on ehrlichiosis and [place]. Patient concerning for meningitis currently undifferentiated. Will give 10mg Decadron, Acyclovir 10mg/kg q8, Vancomycin load and daily, and Rocephin 2GM IV q12 hours. He remains positive for his COVID as well, will continue isolation precautions for both undifferentiated meningitis and COVID. Patient has 4 children and at home, none of the rest of his family is sick. 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 On he did go visit family members michelle and there were multiple children there that attend daycare including his own that attend daycare- they are not ill that he knows of either. He has a dog but does not endorse any ticks or other bites or cutler. His pet does not sleep with him. He denies any other trauma, scrapes, or cuts. No other travel noted. He had [place] for dinner on [place]- with no one else as above feeli ng ill. He has not started any new medications and is not taking any other supplementation. He remains febrile to 38 degrees here and tachycardic- WBC 10 with elevated NLR. He does have UA that is + LE, Nitrites, +blood and 3+ protein. CT scan of abdomen and pelvis completed with renal abscess or prostatitis or other acute process. ABX as above, urinary culture is pending. CXR is clear. Principal Diagnosis febrile illness Discharge Exam In general he is awake alert oriented pleasant no distress. HEENT normocephalic atraumatic mucous membranes are moist. Neck is supple. Cardio regular without rubs murmurs gallops. Lungs are clear to auscultation bilaterally no rales rhonchi or wheezes good effort. Abdomen is soft nondistended nontender no masses organomegaly no guarding rebound or rigidity. Extremities are without cyanosis clubbing or edema, no calf tenderness. Skin shows diffuse predominantly nonblanching macular rash predominantly at this point on flexor surface of right forearm and shins/ankles, scattered throughout elsewhere. Back is surprisingly clear. Neuro shows cranial nerves II through XII be grossly intact gross motor and sensory intact. Mental status shows good recent and remote recall normal mood and affect good judgment and insight. Discharge Data Allergies Allergy/AdvReac Type Severity Reaction Status Date / Time No Known Allergies Allergy Verified 04/24/21 11:18 Consultations 04/24/21 16:05 ED Decision to Admit Stat 04/24/21 20:41 Consult Freelance Writer Routine Ordered Studies 04/24/21 16:09 CT abd pelvis wo con Urgent Hospital Course (1) Acute febrile illness: Exact etiology not clear yetbut he is showing significant improvement. Discussed the diagnosis being a "work in progress" with the main differentials being an acute viral syndrome (not likely to be directly Covid related) versus a postviral autoimmune syndrome (possibly secondary to Covid). Discussed ideally watching him another 24 hours to see that he is 24 hours fever free, but patient expressed a strong desire to go home. Given how much better he was feeling, his benign exam, his stable vitals, and the fact that he seems quite reliableopted to allow him to go home with close follow-up -CXR clear/no hypoxia, LP without findings for meningitis/culture NGTD, blood cultures NGTD, UA mostly c/w dehydration - particularly given lack of urinary symptoms, GI sx most c/w viral process not c/w Cdiff -covid (+) but not unexpected given symptomatic illness around a month ago -biofire otherwise negative -smear negative for anaplasma, lyme screens negative -flu negative -multiple tests (mostly viral send-out tests, CSF tests, anaplasma DNA) all pending --CRP was 17.6, procal 1.37, ESR 55 ---> home, close symptom follow up, labs tomorrow then periodically. if worsens asked to return to hospital, if appears to not resolve then would consider steroids and rheumatology eval Total Time Total Time Spent Total Time Spent (In Minutes): Greater than 30 Discharge Plan Discharge Items Patient Disposition: Home - Self-Care Reason For Visit: COVID, MENINGITIS, FEVER Discharge Diagnosis: febrile illness (see below) Condition on Discharge: Good Activity: Resume your previous activity Non-emergency contact: Primary Care Provider Call non-emergency contact if: you have any medication questions, your symptoms worsen and your temperature is above 101 Follow-up/Referrals: Faraz Parkinson, [Primary Care Provider] - Diet: Regular Addtl Attending Provider Instructions: Febrile illness: -While the actual cause for it was making you sick is still a "work in progress" you are feeling better, and looking better, and your physical exam is very reassuringto that end it is reasonable to let you go home and continue to follow-up as an outpatient -As we discussed, the main two possibilities of what was causing this would be a new viral infection that started Thursday, or an autoimmune response (possibly in response to Covid) where your immune system caused the inflammation by aberrant action. -Largely, the main way will be able to tell the difference of 1 versus the other, is time/following your symptoms, and following your labs -We recommend that you have lab work done tomorrow (CBC, BMP, CRP, procalcitonin) and then these labs, along with an ESR should also be followed up next weekthe pace/timing of the follow-up labs really being contingent on how much they change/improve with tomorrow's check -Make sure that you are getting enough to eat, and staying well-hydrated (at least 60 to 80 ounces of fluid a day), I would like to have monitored you for another day or so to follow you for 24 hours without a fever, so to that endit would not surprise me if you had some degree of a fever tonightyour maximum recorded temperature yesterday was 102.6 F -so if you had a temp tonight, I would want you to write down what it was to help with the trend. At the same time, hopefully you do not have a fever at all. -We will have you follow-up with Dr. Parkinson in the office next week, repeat lab work as above, repeat exam/gathering your symptoms when you see him. If everything "fades back to normal" than this most likely will have just been another, different virus. If things seem to continue/the rash comes back rather than fades/ongoing aches and temperaturesthen it would be more likely to be an autoimmune reaction, Dr. Parkinson would likely put you on steroids +/-possibly needing some assistance from a dsp engineer -There is also a very remote possibility this could be residual symptoms from having had Covid a month agobut like we discussed, the seems way less likely given that you had several weeks in between where you felt good. Typically when we see Covid as more of a long, drawn out process, people do not have a period where they feel good is new for as long as you did. -While your situation is a working progress, I definitely would want you to return to the hospital if anything seems seriously worse/worrisome/strange. --- The work-up so far has really effectively ruled out pneumonia, bloodstream infection, and meningitis as the very serious bacterial infections we were looking at. Further, your lab tests and swabs thus far are also making anything tickborne (Lyme, anaplasmosis) and influenza very unlikely as well. There are still several viral tests pendingthey unfortunately take about a week to come back. That information will go to Dr. Parkinson. You can also review all of your labs/testing/etc. on the patient portal. Pending Studies at Discharge: Yes (several send out labs for different viruses) Stand-Alone Forms: My [facility], Smoking Cessation Medications and DC Order Prescriptions: New ondansetron 4 mg tablet,disintegrating 4 mg PO Q8H PRN (Reason: nausea and vomiting) Qty: 10 RF: 0 Continued acetaminophen 500 mg Tablet 500 mg PO Q6H PRN (Reason: Pain) RF: 0 Discharge Orders: Discharge Order (Routine); Ordered 04/25/21 Ordered By: Rodolfo Diallo Admission Data Admit Date/Time: 04/24/21 18:23 Attending Provider: Rodolfo Diallo Admit Provider: Ladarius Manning Primary Care Provider: Faraz Parkinson Other Providers: Ladarius Manning ; Irving Olivo Other Interventions: Discharge Summary Assessment (RN) Last Done: 04/25/21 13:14 Coding Level of Care Code D/C DAY MANAGEMENT >30 MINS Diagnoses Acute febrile illness R50.9
[2021-04-26] MEDS ORDERED: VANCOMYCIN TROUGH ONE (11:30)
[2021-05-01 22:42] LABS: Ehrlichia chaff IgG Ab <1:64 (<1:64); Ehrlichia chaff IgM Ab <1:20 (<1:20); RMSF IgG Ab Not Detected (Not Detected); RMSF IgM Ab Not Detected (Not Detected)
== END 2021-04-25 13:47 | disposition home or self-care (01) ==
LOC: ED 08:56 → 2S 18:23 → SUATTDRO 18:23 → INTOOBSV 18:23 → 2S 20:09

== ENCOUNTER 2021-04-26 19:36 | Inpatient (IN) ==
[2021-04-26] MEDS ORDERED: SODIUM CHLORIDE 0.9% 1000ML 1,000 ML IV ONE (20:19)
--- NOTE | 2021-04-26 20:21 | Emergency Department Note ---
History of Present Illness General Chief complaint: Diarrhea Stated complaint: COVID +, RASH, OJEDA, DIARRHEA Time Seen by Provider: 04/26/21 19:58 Source: patient History of Present Illness Provider complaint: Headache Onset (ago): day(s) Location: head Radiation: non-radiation Pain Consistency: + constant Maximum Pain Intensity: 8 Quality: + sharp Relieved By: + none Associated symptoms: + chest pain, + cough, + fever/chills, + headaches, + malaise, + rash and + weakness; no nausea/vomiting or no shortness of breath This is a 30-year-old male sent in by the hospitalist for evaluation due to continued symptoms and abnormal blood work. The patient was admitted to the hospital on the for fever and headache as well as flulike symptoms. He did test positive for COVID-19 but states that he had Covid in February. He was not really having any respiratory symptoms but did develop a cough today. He had a lumbar puncture and blood work and felt better while he was on what ever IV treatments he was getting in the hospital. He states as soon as they sent him home he started to feel terrible again. He could not control his fever which went up to 103.8 today despite taking Tylenol. He has a continued headache which he has had the whole time. It is bilateral and frontal without radiation. He describes it as sharp. He rates it an 8 out of 10 in severity. It is not any worse today. He does state that he has neck stiffness associated with it. He has also had a persistent rash since his hospitalization although he thinks that he has darker lesions now in his legs. He does complain of diffuse body pains. He has had some mild chest pain today. He describes it as a ache centrally when he coughs. He denies any shortness of breath or vomiting. He has had diarrhea for the past several days. He does complain of upper abdominal pain which also started recently. He was called by the hospitalist who discharged him yesterday after he had blood work done today. He was told to come back for reevaluation. Home Medications Medication Instructions Recorded Confirmed Type acetaminophen 500 mg tablet 500 mg PO Q8 PRN MDD FEVER/PAIN 04/24/21 04/26/21 History ondansetron 4 mg disintegrating 4 mg PO Q8H PRN #10 tab 04/24/21 04/26/21 Rx tablet ibuprofen 200 mg tablet 800 mg PO Q8H PRN 04/26/21 04/26/21 History Allergies Allergy/AdvReac Type Severity Reaction Status Date / Time No Known Allergies Allergy Verified 04/26/21 20:50 Past Med/Surg History Medical History COVID Surgical History H/O vasectomy 01/2021 Family History Other No significant family history Social History Smoking Status: Never smoker Hx Alcohol Use: No Hx Substance Use: No Preferred Language: [place] Communication Ability: Effective Visual Impairment: No Limitations Hearing Ability: Normal Silo Operator Required: No marital status: Current Living Situation: Spouse Current Living Situation Comment: and 3 kids current occupational status: unemployed How many Children do You have: 3 Feels Safe at Home: Yes during the past year weight has: increased > 10 lbs Dental Care, Regularly: No Physical Activity Frequency: Does not Exercise Assistive Devices: None Review of Systems See HPI for pertinent positives & negatives. and A total of 10 systems reviewed and were otherwise negative Physical Exam Vital Signs Vital Signs - 24 hr 04/26/21 19:38 04/26/21 21:15 04/26/21 21:45 Temperature 36.5 C 38.0 C H 38.4 C H Temperature Source Temporal Artery Scan Oral Oral Pulse Rate 118 H Pulse Rate [Apical] 126 H 126 H Pulse Rhythm [Apical] Regular Pulse Strength [Apical] Normal Respiratory Rate 18 36 H Respiratory Effort / Characteristics Respiratory Depth Blood Pressure 126/74 Blood Pressure [Right Arm] 144/82 H 103/74 Blood Pressure Mean 91 Blood Pressure Mean [Right Arm] 102 83 Blood Pressure Position Sitting Blood Pressure Position [Right Arm] Pulse Oximetry 95 97 Oxygen Delivery Method Room Air Room Air Sepsis Recent Fever Within 48 Hours Yes Sepsis New/Unexplained Change in Mental Status N/A Sepsis Action Taken by Nursing No Action Required 04/26/21 22:49 Temperature Temperature Source Pulse Rate Pulse Rate [Apical] 139 H Pulse Rhythm [Apical] Regular Pulse Strength [Apical] Normal Respiratory Rate 24 Respiratory Effort / Characteristics Non-Labored Respiratory Depth Normal Blood Pressure Blood Pressure [Right Arm] 131/72 Blood Pressure Mean Blood Pressure Mean [Right Arm] 91 Blood Pressure Position Blood Pressure Position [Right Arm] Lying Pulse Oximetry 92 Oxygen Delivery Method Room Air Sepsis Recent Fever Within 48 Hours Sepsis New/Unexplained Change in Mental Status Sepsis Action Taken by Nursing Constitutional: Vital signs reviewed. Eyes: Pupils are equal round reactive to light. Conjunctiva are injected bilaterally. No drainage. ENT: Pharynx is clear without erythema or exudate. Mucous membranes are dry. Respiratory: Clear to auscultation bilaterally. Breath sounds are equal bilaterally. Cardiovascular: Tachycardic. Regular rhythm. Heart rate 106. GI: Soft, nondistended with mild epigastric tenderness. Bowel sounds are present. Musculoskeletal: No peripheral edema. Puncture wound in the lower back without drainage or surrounding erythema. Integumentary: Erythematous rash to the upper extremities and lower back and chest and abdomen with a central area of skin vertically in the midline. Blanchable. There is a papular erythematous rash involving both lower extremities with darker coalesced lesions behind the knees bilaterally medially that do not tawana. No bullae or vesicles. Neurological: The patient is awake and alert. No focal deficits. Psychiatric: Anxious. Course Consultations Consultation #1: Dr. Bonilla Time: 22:20 Consultation #2: [facility] - will discuss with Dr. Olivo Time: 22:26 Administered Medications Discontinued Medications Acetaminophen (Acetaminophen 325 Mg Tab) 650 mg PO NOW STA Stop: 04/26/21 21:50 Last Admin: 04/26/21 22:09 Dose: 650 mg Documented by: [id number] Sodium Chloride (Nss 1000ml) 1,000 mls @ 999 mls/hr IV .Q1H1M ONE Stop: 04/26/21 21:19 Last Infusion: 04/26/21 22:14 Dose: 0 mls/hr Documented by: [id number] Admin: 04/26/21 21:38 Dose: 999 mls/hr Documented by: [id number] Critical Care Time Critical Care Time: Yes Total Critical Care Time: 45 I have personally spent approximately 45 minutes of critical care time in the direct management of this patient. This includes bedside care, interpretation of diagnostic studies, and testing, discussion with consultants, patient, and family members, and other required patient management activities. These minutes are in excess of all separately billable procedures. Medical Decision Making Differential Diagnosis Sepsis, bacteremia, tickborne illness, fever of unknown origin, vasculitis, COVID-19, pneumonia, MIS-A Medical Records Attestation: I reviewed the patient's medical records. I did perform a limited focused review of portions of the patient's old chart on the electronic medical record. The patient was admitted to the hospital 2 days ago for fever, malaise and headache. He had a Covid test which came back positive. He had a lumbar puncture which was negative for meningitis. Cultures have not shown any growth so far. He was thought to have a possible viral syndrome versus an autoimmune response to a viral syndrome versus a tickborne illness. He had blood work today at 3 PM which demonstrated a CRP of over 16 and a procalcitonin of over 6. He also had thrombocytopenia and anemia. He was sent here by Dr. Pugh for reevaluation. Home Medications Current Medication List: was personally reviewed by me Laboratory Data Attestation: I reviewed the patient's lab results. Result diagrams: 04/26/21 21:23 04/26/21 21:23 Lab Results 04/26/21 04/26/21 04/26/21 Range/Units 21:23 21:23 21:23 WBC 8.87 (4.8-10.8) K/uL RBC 4.60 L (4.7-6.1) M/uL Hgb 13.2 L (14.0-18.0) g/dL Hct 38.2 L (42-52) % MCV 83.0 (80-100) fL MCH 28.7 (25-34) pg MCHC 34.6 (32-36) g/dL RDW Std Deviation 40.7 (36.4-46.3) fL RDW Coeff of Rhoda 13.5 (11.5-14.5) % Plt Count 91 L (130-400) K/uL MPV 11.7 H (7.4-10.4) fL Immature Gran % (Auto) 6.2 % Neut % (Auto) 83.5 % Lymph % (Auto) 5.1 % Jennings % (Auto) 1.2 % Eos % (Auto) 3.9 % Baso % (Auto) 0.1 % Neut # (Auto) 7.40 H (1.4-6.5) K/uL Lymph # (Auto) 0.45 L (1.2-3.4) K/uL Jennings # (Auto) 0.11 (0.11-0.59) K/uL Eos # (Auto) 0.35 (0-0.5) K/uL Baso # (Auto) 0.01 (0-0.2) K/uL Immature Gran # (Auto) 0.55 H (0.00-0.02) K/uL Toxic Vacuolation 2+ Dohle Bodies Occasional Sodium 134 L (136-145) mmol/L Potassium 3.6 (3.5-5.1) mmol/L Chloride 100 (98-107) mmol/L Carbon Dioxide 27 (21-32) mmol/L Anion Gap 7.0 (3-11) BUN 14 (7-18) mg/dl Creatinine 1.17 (0.6-1.4) mg/dl Est Cr Clr Drug Dosing 113.1 ml/min Est GFR ( Amer) 97.1 ml/min Est GFR (Non-Af Amer) 83.8 ml/min BUN/Creatinine Ratio 12.1 (10-20) Glucose 114 H (70-99) mg/dl Lactate (0.4-2.0) mmol/L Calcium 8.5 (8.5-10.1) mg/dl Total Bilirubin 2.4 H (0.2-1) mg/dl AST 91 H (15-37) U/L ALT 108 H (12-78) Alkaline Phosphatase 129 H D (45-117) U/L Troponin I 0.150 H* (0-0.045) ng/ml C-Reactive Protein 21.70 H (0-0.29) mg/dl Total Protein 7.0 (6.4-8.2) gm/dl Albumin 2.6 L (3.4-5.0) gm/dl Globulin 4.4 H (2.5-4.0) gm/dl Albumin/Globulin Ratio 0.6 L (0.9-2) Procalcitonin 6.31 H (0-0.5) ng/ml Anaplasma Smear See Comment Lyme Disease IgG Ab Negative (Negative) Lyme Disease IgM Ab Negative (Negative) 04/26/21 Range/Units 21:23 WBC (4.8-10.8) K/uL RBC (4.7-6.1) M/uL Hgb (14.0-18.0) g/dL Hct (42-52) % MCV (80-100) fL MCH (25-34) pg MCHC (32-36) g/dL RDW Std Deviation (36.4-46.3) fL RDW Coeff of Rhoda (11.5-14.5) % Plt Count (130-400) K/uL MPV (7.4-10.4) fL Immature Gran % (Auto) % Neut % (Auto) % Lymph % (Auto) % Jennings % (Auto) % Eos % (Auto) % Baso % (Auto) % Neut # (Auto) (1.4-6.5) K/uL Lymph # (Auto) (1.2-3.4) K/uL Jennings # (Auto) (0.11-0.59) K/uL Eos # (Auto) (0-0.5) K/uL Baso # (Auto) (0-0.2) K/uL Immature Gran # (Auto) (0.00-0.02) K/uL Toxic Vacuolation Dohle Bodies Sodium (136-145) mmol/L Potassium (3.5-5.1) mmol/L Chloride (98-107) mmol/L Carbon Dioxide (21-32) mmol/L Anion Gap (3-11) BUN (7-18) mg/dl Creatinine (0.6-1.4) mg/dl Est Cr Clr Drug Dosing ml/min Est GFR ( Amer) ml/min Est GFR (Non-Af Amer) ml/min BUN/Creatinine Ratio (10-20) Glucose (70-99) mg/dl Lactate 1.8 (0.4-2.0) mmol/L Calcium (8.5-10.1) mg/dl Total Bilirubin (0.2-1) mg/dl AST (15-37) U/L ALT (12-78) Alkaline Phosphatase (45-117) U/L Troponin I (0-0.045) ng/ml C-Reactive Protein (0-0.29) mg/dl Total Protein (6.4-8.2) gm/dl Albumin (3.4-5.0) gm/dl Globulin (2.5-4.0) gm/dl Albumin/Globulin Ratio (0.9-2) Procalcitonin (0-0.5) ng/ml Anaplasma Smear Lyme Disease IgG Ab (Negative) Lyme Disease IgM Ab (Negative) Imaging Data Radiologist's Impression: Chest X-Ray 04/26/21 20:16 SINGLE VIEW CHEST CLINICAL HISTORY: Fever. FINDINGS: An AP, portable, upright chest radiograph is compared to study dated 04/24/2021. The cardiomediastinal silhouette is unremarkable. There is mild bibasilar patchy airspace consolidation. No large pleural effusion or pneumothorax is seen. The bony thorax is grossly intact. IMPRESSION: Mild bibasilar patchy airspace consolidation is consistent with an infectious/inflammatory pneumonitis. Radiographic follow-up to resolution is recommended. ACT 112: Negative or not required by law. Electronically signed by: Emeterio Man M.D. 04/26/2021 8:59 PM ECG Data Attestation: I personally reviewed and interpreted this ECG as follows: Indication: + chest pain Rate (beats per minute): 117 Rhythm: + sinus tachycardia ECG [place]: + Normal ECG ST segments: no ST elevation ECG Findings: no PVCs MDM Narrative I did evaluate the patient as noted above. He is presenting with persistent fever and headache with flulike symptoms. He was admitted here for the same and underwent significant work-up as described above. He did test positive for COVID-19. He does appear to meet the current CDC case definition for PERRY. He has a rash and conjunctivitis. He has abdominal pain with diarrhea. He has thrombocytopenia. He has elevation of his CRP and pro calcitonin. He has a positive SARS-CoV-2 test. He was placed in respiratory isolation. IV access was established. I did place an order for continuous cardiac monitoring. The monitor showed sinus tachycardia at a rate of 117 bpm. I did order and personally review the patient's 12-lead EKG as described above. He has no signs of acute ischemia or pericarditis. I did treat him with normal saline IV. I did order and personally reviewed the images of the patient's chest x-ray as described above. He does appear to have infiltrates bilaterally consistent with a viral pneumonia. He did develop cough symptoms today. I did order a urine analysis. I did order and review the patient's blood work as noted in the electronic medical record. His white blood cell count is 8.8. Hemoglobin is 13.2 and his platelet count is 91. These are slightly lower than his previous values during admission. Sodium is 134 otherwise electrolytes are unremarkable. AST and ALT are bumped at 91 and 108. This is new for him. His troponin is elevated 0.150. Further suggesting that this patient has MIS-A. His C-reactive protein is 21.7. Procalcitonin is 6.3. Lyme testing is negative. Anaspaz MRSA smear is negative. I did reassess the patient multiple times. He did develop a fever of 38.4 here. He was given Tylenol 650 p.o. I did discuss the case with Dr. Pearson and the home health care case manager for admission to the hospital for likely monoclonal antibodies and steroid treatment. I did also discuss case with [facility] from the ICU team who will talk to Dr. Olivo for approval of monoclonal anti bodies. I did treat the patient with Decadron 6 mg IV. I did talk to his over the telephone and discussed his care with her. 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
--- NOTE | 2021-04-26 21:00 | XRay Report ---
SINGLE VIEW CHEST CLINICAL HISTORY: Fever. FINDINGS: An AP, portable, upright chest radiograph is compared to study dated 04/24/2021. The cardio mediastinal silhouette is unremarkable. There is mild bibasilar patchy airspace consolidation. No lar ge pleural effusion or pneumothorax is seen. The bony thorax is grossly intact. IMPRESSION: Mild bibasilar patchy airspace consolidation is consistent with an infectious/inflammator y pneumonitis. Radiographic follow-up to resolution is recommended. ACT 112: Negative or not required by law. Electronically signed by: Emeterio Man M.D. 04/26/2021 8:59 PM
[2021-04-26 21:42] LABS: Hematocrit (blood only) 38.2 % (42-52); Hemoglobin 13.2 g/dL (14.0-18.0); Mean Corpuscular Hemoglobin 28.7 pg (25-34); Mean Corpuscular Hgb Conc 34.6 g/dL (32-36); RDW Coefficient of Variation 13.5 % (11.5-14.5); RDW Standard Deviation 40.7 fL (36.4-46.3); White Blood Count 8.87 K/uL (4.8-10.8)
[2021-04-26] MEDS ORDERED: ACETAMINOPHEN 325 MG TAB PO STA (21:49)
[2021-04-26 21:56] LABS: Mean Platelet Volume 11.7 fL (7.4-10.4); Platelet Count 91 K/uL (130-400)
[2021-04-26 22:00] LABS: Albumin Level 2.6 gm/dl (3.4-5.0); BUN Creatinine Ratio 12.1 (10-20); Calcium 8.5 mg/dl (8.5-10.1); Creatinine Clr Calc Pharmacy 113.1 ml/min; Est GFR (African American) 97.1 ml/min; Est GFR (Non-African American) 83.8 ml/min; Potassium 3.6 mmol/L (3.5-5.1)
[2021-04-26 22:11] LABS: Albumin Globulin Ratio 0.6 (0.9-2); C Reactive Protein 21.7 mg/dl (0-0.29); Globulin 4.4 gm/dl (2.5-4.0); Troponin I 0.15 ng/ml (0-0.045)
[2021-04-26 22:16] LABS: Basophils # (auto) 0.01 K/uL (0-0.2); Basophils % (auto) 0.1 %; Dohle Bodies Occasional; Eosinophils # (auto) 0.35 K/uL (0-0.5); Eosinophils % (auto) 3.9 %; Immature Granulocytes # (auto) 0.55 K/uL (0.00-0.02); Immature Granulocytes % (auto) 6.2 %; Lymphocytes # (auto) 0.45 K/uL (1.2-3.4); Lymphocytes % (auto) 5.1 %; Monocytes # (auto) 0.11 K/uL (0.11-0.59); Monocytes % (auto) 1.2 %; Neutrophils % (auto) 83.5 %; Toxic Vacuolation 2+
[2021-04-26 22:19] LABS: Bilirubin,Total 2.4 mg/dl (0.2-1)
[2021-04-26 22:22] LABS: Procalcitonin 6.31 ng/ml (0-0.5)
[2021-04-26 22:28] LABS: Lyme Ab IgG w/WB Rflx Negative (Negative); Lyme Ab IgM w/WB Rflx Negative (Negative)
[2021-04-26] MEDS ORDERED: dexAMETHasone**PF** 10 MG/ML VIAL IV ONE (22:53)
[2021-04-26] MEDS ORDERED: POTASSIUM CHLORIDE CRTAB 20 MEQ TABCR PO STA (23:19)
[2021-04-26] MEDS ORDERED: SODIUM CHLORIDE 0.9% 1000ML 1,000 ML IV SCH (23:19)
[2021-04-26] MEDS ORDERED: dexAMETHasone 4 MG in SYRINGE 0 ML IV ONE (23:20)
[2021-04-26] MEDS ORDERED: dexAMETHasone**PF** 10 MG/ML VIAL IV STA (23:30)
[2021-04-26] MEDS ORDERED: REMDESIVIR 200 MG in SODIUM CHLORIDE 0.9% 210 ML IV STA (23:31)
[2021-04-27] MEDS ORDERED: OPTIRAY 320 125ml IV ONE (00:43)
--- NOTE | 2021-04-27 01:09 | CT Scan Report ---
CT ANGIOGRAM OF THE CHEST CLINICAL HISTORY: Dyspnea. COMPARISON STUDY: Chest x-ray dated 04/26/2021. TECHNIQUE: Following the IV administration of 120 cc of Optiray 320, CT angiogram of the chest was pe rformed from the upper abdomen to the thoracic inlet utilizing the pulmonary embolus protocol. Images are reviewed in the axial, sagittal, and coronal planes. 3-D MIPS images are created and assessed. I V contrast was administered without complication. A dose lowering technique was utilized adhering to the principles of ALARA. The examination is degraded by motion artifact. CT DOSE: 518.17 mGy.cm FINDINGS: Thyroid: Imaged portions of the thyroid gland are normal in size and attenuation. Thoracic aorta: The thoracic aorta is normal in caliber and demonstrates standard 3-vessel arch anato my. No dissection is seen. Pulmonary vasculature: The pulmonary trunk is normal in caliber. There are no filling defects identif ied in main, lobar, or proximal segmental pulmonary branches to suggest pulmonary embolus. Evaluation of the segmental and subsegmental branches is degraded by motion artifact. Heart: The heart is normal in size and without pericardial effusion. Lungs and pleural spaces: Evaluation of the lung parenchyma is degraded by motion artifact. There are trace pleural effusions. Mild dependent consolidation is present at both lung bases. There is a focu s of nodular consolidation in the right upper lobe on image #134 which measures 2.2 cm. The trachea a nd central airways are clear. Mild diffuse peribronchial thickening is noted Mediastinum: There is no mediastinal lymphadenopathy. Alana: Mildly enlarged right hilar nodes measure up to 12 mm in short axis. No left hilar adenopathy i s seen. Axillae: There is no axillary lymphadenopathy. Upper abdomen: The liver appears steatotic. There is a small hiatal hernia. The spleen is enlarged me asuring 14.5 cm in length. Skeletal structures: No lytic or blastic bony lesions are seen. IMPRESSION: 1. Motion degraded examination. 2. There is no evidence of central pulmonary embolus in the main, lobar, or proximal segmental pulmon isela arteries. Evaluation of the peripheral branches is compromised by motion artifact. 3. There is a 2.2 cm focus of round/nodular consolidation in the right upper lobe. This is likely on an infectious/inflammatory basis, and could possibly present an atypical pneumonia or possibly septic embolus. Clinical correlation will be required. A follow-up chest CT in 2-3 months time is recommend ed to document complete resolution. 4. Trace pleural effusions with dependent consolidation. This could represent atelectasis and/or pneu monia. 5. Mildly enlarged right hilar nodes are likely reactive. 6. Hepatic steatosis and splenomegaly. 7. Additional findings as above. ACT 112: Negative or not required by law. Electronically signed by: Emeterio Man M.D. 04/27/2021 1:07 AM
[2021-04-27] MEDS ORDERED: ALBUTEROL HFA 8 GM INHALER INH PRN (03:06)
--- NOTE | 2021-04-27 03:09 | History & Physical Report ---
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 every morning Zinc sulfate 220 mg p.o. every morning Albuterol HFA 2 puffs every 2 hours as needed (2) Elevated troponin: Plan: Troponin 0.150 upon admission The patient will be admitted to telemetry for serial cardiac enzymes, serial EKG's, cardiac rhythm monitoring and a 2-D echocardiogram with Dopplers. Differential includes but not limited to ACS, type II IL, myopericarditis, endocarditis (3) Septic pulmonary embolism: Plan: Right upper lobe 2.2 cm round lesion/atypical pneumonia versus septic pulmonary embolism Empirically place on vancomycin IV, ceftriaxone IV and azithromycin IV Echocardiogram to assess for possible source (4) Thrombocytopenia: Plan: Platelets 91 upon admission Follow serially while on anticoagulation Peripheral smear (5) LFTs abnormal: Plan: New compared to recent laboratories 2 days ago Follow serially May be secondary to above process Check acute hepatitis profile If worse in a.m., would order imaging Admission and Anticipated Discharge Date Admission Date: April 26, 2021 History of Present Illness Chief Complaint: Patient had been recently discharged from the hospital on 04/25, after being diagnosed with COVID-19 on 04/24. He was found to have abnormal laboratories after discharge, and was advised to come to the emergency department for reassessment. Patient complains of generalized symptoms of headache, sore throat, shortness of breath, dyspnea exertion, generalized muscle aches and bone aches, fatigue and decreased oral intake Primary Care Provider: Faraz Parkinson DO Allergies Allergy/AdvReac Type Severity Reaction Status Date / Time No Known Allergies Allergy Verified 04/26/21 20:50 Home Medications Medication Instructions Recorded Confirmed Type acetaminophen 500 mg tablet 500 mg PO Q8 PRN MDD FEVER/PAIN 04/24/21 04/26/21 History ondansetron 4 mg disintegrating 4 mg PO Q8H PRN #10 tab 04/24/21 04/26/21 Rx tablet ibuprofen 200 mg tablet 800 mg PO Q8H PRN 04/26/21 04/26/21 History Past Med/Surg History Medical History COVID Surgical History H/O vasectomy 01/2021 Family History Other No significant family history Social History Smoking Status: Never smoker Hx Alcohol Use: No Hx Substance Use: No Preferred Language: Albanian Communication Ability: Effective Visual Impairment: No Limitations Hearing Ability: Normal Resource Recovery Specialist Required: No marital status: Current Living Situation: Spouse Current Living Situation Comment: and 3 kids current occupational status: unemployed How many Children do You have: 3 Feels Safe at Home: Yes during the past year weight has: increased > 10 lbs Dental Care, Regularly: No Physical Activity Frequency: Does not Exercise Assistive Devices: None Review of Systems Review of Systems: The patient denies palpitations, extremity swelling, vomiting, diarrhea , constipation, abdominal pain, pelvic pain, blood in urine or stool, dysuria, urinary frequency or urgency, memory loss, loss of consciousness, abnormal bruising or bleeding, focal weakness, numbness or tingling in arms or legs, back or neck pain, or night sweats. The review of systems is otherwise negative other than for that already noted above, and at least 10 systems have been reviewed. Physical Exam Physical Exam: The patient is awake, alert and oriented 3, well developed and well nourished, normocephalic and atraumatic, lying in bed and in no acute distress. HEENT--PERRL, EOMI, mucous membranes and oropharynx dry. Neck--supple. No JVD. No bruits. Thyroid normal, trachea midline, no adenopathy. Heart--normal S1 and S2. No murmurs, rubs or gallops. Lungs--clear bilaterally, no respiratory distress, no accessory muscle use. Abdomen--normal bowel sounds and soft. Nontender. Nondistended. Obese Extremities--no cyanosis or clubbing. No edema. Dermatologic--normal skin turgor, normal color, no abnormal lymph nodes, no rash. Neurologic--cranial nerves II through XII grossly intact. Rheumatologic--normal range of motion. Psychiatric--normal affect. Results & Data Results & Data ([facility]) Vital Signs (Past 12 Hours) Vital Signs Temp Pulse Pulse Resp BP BP Pulse Ox 04/27/21 01:02 120 H 26 H 118/63 95 04/26/21 22:49 139 H 24 131/72 92 04/26/21 21:45 38.4 C H 126 H 103/74 04/26/21 21:15 38.0 C H 126 H 36 H 144/82 H 97 04/26/21 19:38 36.5 C 118 H 18 126/74 95 Laboratory Results Laboratory Results WBC 8.87 K/uL (4.8-10.8) 04/26/21 21: RBC 4.60 M/uL (4.7-6.1) L 04/26/21 21:23 Hgb 13.2 g/dL (14.0-18.0) L 04/26/21 21:23 Hct 38.2 % (42-52) L 04/26/21 21:23 MCV 83.0 fL (80-100) 04/26/21 21:23 MCH 28.7 pg (25-34) 04/26/21 21: MCHC 34.6 g/dL (32-36) 04/26/21 21:23 RDW Std Deviation 40.7 fL (36.4-46.3) 04/26/21 21: RDW Coeff of Rhoda 13.5 % (11.5-14.5) 04/26/21 21:23 Plt Count 91 K/uL (130-400) L 04/26/21 21:23 MPV 11.7 fL (7.4-10.4) H 04/26/21 21:23 Immature Gran % (Auto) 6.2 % 04/26/21 21: Neut % (Auto) 83.5 % 04/26/21 21: Lymph % (Auto) 5.1 % 04/26/21 21: [place] % (Auto) 1.2 % 04/26/21 21:23 Eos % (Auto) 3.9 % 04/26/21 21:23 Baso % (Auto) 0.1 % 04/26/21 21: Neut # (Auto) 7.40 K/uL (1.4-6.5) H 12/31/21 21:23 Lymph # (Auto) 0.45 K/uL (1.2-3.4) L 04/26/21 21:23 Prairie # (Auto) 0.11 K/uL (0.11-0.59) 04/26/21 21:23 Eos # (Auto) 0.35 K/uL (0-0.5) 04/26/21 21:23 Baso # (Auto) 0.01 K/uL (0-0.2) 04/26/21 21:23 Immature Gran # (Auto) 0.55 K/uL (0.00-0.02) H 04/26/21 21:23 Toxic Vacuolation 2+ 04/26/21 21:23 Dohle Bodies Occasional 04/26/21 21:23 Sodium 134 mmol/L (136-145) L 04/26/21 21:23 Potassium 3.6 mmol/L (3.5-5.1) 04/26/21 21:23 Chloride 100 mmol/L (98-107) 04/26/21 21:23 Carbon Dioxide 27 mmol/L (21-32) 04/26/21 21:23 Anion Gap 7.0 (3-11) 04/26/21 21:23 BUN 14 mg/dl (7-18) 04/26/21 21:23 Creatinine 1.17 mg/dl (0.6-1.4) 04/26/21 21:23 Est Cr Clr Drug Dosing 113.1 ml/min 04/26/21 21:23 Est GFR ( Amer) 97.1 ml/min 04/26/21 21:23 Est GFR (Non-Af Amer) 83.8 ml/min 04/26/21 21:23 BUN/Creatinine Ratio 12.1 (10-20) 04/26/21 21:23 Glucose 114 mg/dl (70-99) H 04/26/21 21:23 Lactate 1.8 mmol/L (0.4-2.0) 04/26/21 21:23 Calcium 8.5 mg/dl (8.5-10.1) 04/26/21 21:23 Total Bilirubin 2.4 mg/dl (0.2-1) H 04/26/21 21:23 AST 91 U/L (15-37) H 04/26/21 21:23 ALT 108 (12-78) H 04/26/21 21:23 Alkaline Phosphatase 129 U/L (45-117) H D 04/26/21 21:23 Troponin I 0.150 ng/ml (0-0.045) H* 04/26/21 21:23 C-Reactive Protein 21.70 mg/dl (0-0.29) H 04/26/21 21:23 Total Protein 7.0 gm/dl (6.4-8.2) 04/26/21 21:23 Albumin 2.6 gm/dl (3.4-5.0) L 04/26/21 21:23 Globulin 4.4 gm/dl (2.5-4.0) H 04/26/21 21:23 Albumin/Globulin Ratio 0.6 (0.9-2) L 04/26/21 21:23 Procalcitonin 6.31 ng/ml (0-0.5) H 04/26/21 21:23 Anaplasma Smear See Comment 04/26/21 21:23 Lyme Disease IgG Ab Negative (Negative) 04/26/21 21:23 Lyme Disease IgM Ab Negative (Negative) 04/26/21 21:23 Impressions Chest X-Ray 04/26/21 20:16 SINGLE VIEW CHEST CLINICAL HISTORY: Fever. FINDINGS: An AP, portable, upright chest radiograph is compared to study dated 04/24/2021. The cardiomediastinal silhouette is unremarkable. There is mild bibasilar patchy airspace consolidation. No large pleural effusion or pneumothorax is seen. The bony thorax is grossly intact. IMPRESSION: Mild bibasilar patchy airspace consolidation is consistent with an infectious/inflammatory pneumonitis. Radiographic follow-up to resolution is recommended. ACT 112: Negative or not required by law. Electronically signed by: Emeterio Man M.D. 04/26/2021 8:59 PM Chest CTA 04/26/21 23:18 CT ANGIOGRAM OF THE CHEST CLINICAL HISTORY: Dyspnea. COMPARISON STUDY: Chest x-ray dated 04/26/2021. TECHNIQUE: Following the IV administration of 120 cc of Optiray 320, CT angiogram of the chest was performed from the upper abdomen to the thoracic inlet utilizing the pulmonary embolus protocol. Images are reviewed in the axial, sagittal, and coronal planes. 3-D MIPS images are created and assessed. IV contrast was administered without complication. A dose lowering technique was utilized adhering to the principles of ALARA. The examination is degraded by motion artifact. CT DOSE: 518.17 mGy.cm FINDINGS: Thyroid: Imaged portions of the thyroid gland are normal in size and attenuation. Thoracic aorta: The thoracic aorta is normal in caliber and demonstrates standard 3-vessel arch anatomy. No dissection is seen. Pulmonary vasculature: The pulmonary trunk is normal in caliber. There are no filling defects identified in main, lobar, or proximal segmental pulmonary branches to suggest pulmonary embolus. Evaluation of the segmental and subsegmental branches is degraded by motion artifact. Heart: The heart is normal in size and without pericardial effusion. Lungs and pleural spaces: Evaluation of the lung parenchyma is degraded by motion artifact. There are trace pleural effusions. Mild dependent consolidation is present at both lung bases. There is a focus of nodular consolidation in the right upper lobe on image #134 which measures 2.2 cm. The trachea and central airways are clear. Mild diffuse peribronchial thickening is noted Mediastinum: There is no mediastinal lymphadenopathy. Alana: Mildly enlarged right hilar nodes measure up to 12 mm in short axis. No left hilar adenopathy is seen. Axillae: There is no axillary lymphadenopathy. Upper abdomen: The liver appears steatotic. There is a small hiatal hernia. The spleen is enlarged measuring 14.5 cm in length. Skeletal structures: No lytic or blastic bony lesions are seen. IMPRESSION: 1. Motion degraded examination. 2. There is no evidence of central pulmonary embolus in the main, lobar, or proximal segmental pulmonary arteries. Evaluation of the peripheral branches is compromised by motion artifact. 3. There is a 2.2 cm focus of round/nodular consolidation in the right upper lobe. This is likely on an infectious/inflammatory basis, and could possibly present an atypical pneumonia or possibly septic embolus. Clinical correlation will be required. A follow-up chest CT in 2-3 months time is recommended to document complete resolution. 4. Trace pleural effusions with dependent consolidation. This could represent atelectasis and/or pneumonia. 5. Mildly enlarged right hilar nodes are likely reactive. 6. Hepatic steatosis and splenomegaly. 7. Additional findings as above. ACT 112: Negative or not required by law. Electronically signed by: Emeterio Man M.D. 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
[2021-04-27] MEDS ORDERED: VANCOMYCIN CONSULT ACTIVE PRN (03:15)
[2021-04-27] MEDS ORDERED: VANCOMYCIN HCL 2,500 MG in SODIUM CHLORIDE 0.9% 500 ML IV ONE (03:45)
[2021-04-27] MEDS: cefTRIAXone SODIUM 2,000 MG in DEXTROSE 5% 50 ML IV SCH (04:00)
[2021-04-27] MEDS: ENOXAPARIN 100 MG/1ML SYR SQ SCH ×2 (04:01→18:18)
[2021-04-27 05:13] LABS: Hematocrit (blood only) 33.6 % (42-52); Hemoglobin 11.5 g/dL (14.0-18.0); Mean Corpuscular Hemoglobin 28.7 pg (25-34); Mean Corpuscular Hgb Conc 34.2 g/dL (32-36); Mean Corpuscular Volume 83.8 fL (80-100); RDW Coefficient of Variation 13.6 % (11.5-14.5); Red Blood Count 4.01 M/uL (4.7-6.1); White Blood Count 9.72 K/uL (4.8-10.8)
[2021-04-27 05:27] LABS: Mean Platelet Volume 11.7 fL (7.4-10.4); Platelet Count 86 K/uL (130-400)
[2021-04-27 05:37] LABS: Albumin Level 2.2 gm/dl (3.4-5.0); BUN Creatinine Ratio 9.7 (10-20); Calcium 8.1 mg/dl (8.5-10.1); Creatinine Clr Calc Pharmacy 118.2 ml/min; Est GFR (African American) 102.3 ml/min; Est GFR (Non-African American) 88.3 ml/min; Potassium 3.9 mmol/L (3.5-5.1)
[2021-04-27 05:55] LABS: Albumin Globulin Ratio 0.6 (0.9-2); Bilirubin,Total 2.2 mg/dl (0.2-1); Total Protein 6.2 gm/dl (6.4-8.2); Troponin I 0.367 ng/ml (0-0.045)
[2021-04-27 06:00] LABS: Basophils # (auto) 0.01 K/uL (0-0.2); Basophils % (auto) 0.1 %; Eosinophils # (auto) 0.06 K/uL (0-0.5); Eosinophils % (auto) 0.6 %; Immature Granulocytes # (auto) 0.06 K/uL (0.00-0.02); Immature Granulocytes % (auto) 0.6 %; Lymphocytes # (auto) 0.42 K/uL (1.2-3.4); Lymphocytes % (auto) 4.3 %; Monocytes # (auto) 0.22 K/uL (0.11-0.59); Monocytes % (auto) 2.3 %; Neutrophils # (auto) 8.95 K/uL (1.4-6.5); Neutrophils % (auto) 92.1 %; RBC Morphology Unremarkable
[2021-04-27] MEDS ORDERED: AZITHROMYCIN 500 MG in DEXTROSE 5% 250 ML IV SCH (06:00)
[2021-04-27] MEDS ORDERED: dexAMETHasone 6 MG in SYRINGE 0 ML IV SCH (09:00)
[2021-04-27] MEDS ORDERED: IMMUNE GLOBULIN (HUMAN) SOLN IV ONE (10:00)
[2021-04-27] MEDS ORDERED: ACETAMINOPHEN 325 MG TAB ONE (10:10)
[2021-04-27] MEDS: ACETAMINOPHEN 325 MG TAB PO PRN ×2 (10:25→18:22)
[2021-04-27] MEDS: DOXYCYCLINE HYCLATE 100 MG in DEXTROSE 5% 100 ML IV SCH ×2 (10:26→22:23)
[2021-04-27] MEDS: LACTATED RINGER'S 1,000 ML IV SCH ×2 (10:27→18:17)
[2021-04-27] MEDS ORDERED: VANCOMYCIN HCL 1,500 MG in SODIUM CHLORIDE 0.9% 500 ML IV ONE (12:00)
--- NOTE | 2021-04-27 12:06 | XCELERA ---
[id number]
[2021-04-27] MEDS ORDERED: IMMUN GLOBG(IGG)/MALT/IGA OV50 200 ML IV SCH (12:45)
[2021-04-27] MEDS: CHOLECALCIFEROL 5,000 UNITS 125 MCG TAB PO SCH (13:37)
[2021-04-27] MEDS: ZINC SULFATE 220 MG CAPSULE PO SCH (13:37)
[2021-04-27 13:53] LABS: Albumin Level 2.2 gm/dl (3.4-5.0); BUN Creatinine Ratio 10.4 (10-20); Calcium 8.5 mg/dl (8.5-10.1); Creatinine Clr Calc Pharmacy 117.1 ml/min; Est GFR (African American) 101.2 ml/min; Est GFR (Non-African American) 87.4 ml/min; Potassium 3.9 mmol/L (3.5-5.1)
[2021-04-27] MEDS: IMMUN GLOBG(IGG)/MALT/IGA OV50 200 ML IV SCH ×5 (14:12→21:55)
[2021-04-27 14:13] LABS: Albumin Globulin Ratio 0.5 (0.9-2); Bilirubin,Total 1.8 mg/dl (0.2-1); C Reactive Protein 25.3 mg/dl (0-0.29); Globulin 4.4 gm/dl (2.5-4.0); Total Protein 6.6 gm/dl (6.4-8.2); Troponin I 1.51 ng/ml (0-0.045)
--- NOTE | 2021-04-27 14:46 | Pharmacy Report ---
Pharmacy Vanc AUC Short Note - Date of Service April 27, 2021 - Assessment & Plan Assessment 30 year old M receiving vancomycin/doxycycline/Rocephin for treatment of COVID- 19 pneumonia, possible tickborne disease. Pertinent microbiologic data includes: N/A. Day # 1 of antimicrobial therapy. Plan Vancomycin * AUC/MICHAEL is the preferred PK/PD target for vancomycin * AUC guided dosing is effective and associated with decreased risk of nephrotoxicity compared to traditional trough targets * vancomycin 1500 mg IV q12 is predicted to achieve target AUC/MICHAEL of 400-600 mg/L.hr and may be associated with a 16 % risk of nephrotoxicity * Trough to be ordered based upon clinical picture Pharmacy will continue to follow and will adjust dose/frequency as necessary. Thank you.
[2021-04-27] MEDS: Octagam 10% IVIG 20 gram bottle IV SCH ×2 (16:48→16:49)
[2021-04-27] MEDS: ASPIRIN 325 MG ECTAB PO SCH (17:37)
--- NOTE | 2021-04-27 19:52 | Communication Note ---
Date of Service: April 27, 2021 Seen in follow-up from early a.m. admission. Still febrile with headache. Does feel little bit better than earlier. Appreciative of care. Discussed working diagnosis with patient and ( over video chat). They expressed good understanding. expressed appreciation noting that as she was reading up on MIS a, she noted that it sometimes seems like it takes quite a while to sure up a diagnosis. Vitals noted, in general he is awake and alert appears somewhat flushed with some conjunctival injection. HEENT normocephalic atraumatic mucous membranes are moist. Cardio is regular. Lungs are overall clear may be faint rales right upper lung field but no rhonchi no wheezes good effort. Extremities show no cyanosis or clubbing. Neuro without focal deficits. MISAseems to be the main culprit diagnosis. As his labs continue to evolve and we were able to bring him back for reevaluation, now he seems to fit criteria quite well. Review of literature, obviously fairly sparse for this, but seems that initial treatment with steroids and IVIG does well for most people. Further immunomodulating can be done if it does not improve. For now Decadron, IVIG. Right upper lobe infiltratesuspect there is probably a small area of pneumoniaradiographically appears more consistent with a septic embolus, but he has no other pulmonary emboli, no noted vegetation on transthoracic echo, and most importantly his blood cultures have been negative. I doubt a septic embolus. It could simply be inflammatory changes left over from Covid, could be a secondary pneumoniaeither way warrants empiric antibiotic coverage. MRSA nares negativedrop vancomycin. Continue ceftriaxone/doxycycline for nowalthough suspect could probably stop doxycycline soonbut would like to see clinical improvement. Elevated LFTs, thrombocytopenia, myocarditis, conjunctivitis, diarrhea, fevers, headacheall consistent with what I am seeing in the literature with [place]
[2021-04-27] MEDS ORDERED: REMDESIVIR 100 MG in SODIUM CHLORIDE 0.9% 230 ML IV SCH (20:00)
--- NOTE | 2021-04-27 21:01 | Electrocardiogram Report ---
Test Reason : Blood Pressure : / mmHG Vent. Rate : 117 BPM Atrial Rate : 117 BPM P-R Int : 148 ms QRS Dur : 086 ms QT Int : 330 ms P-R-T Axes : 046 058 037 degrees QTc Int : 460 ms Sinus tachycardia Anterior ST abnormality, consider ischemia or pericarditis Borderline ECG When compared with ECG of 24-APR-2021 10:19, Anterior ST abnormalities are new Confirmed by Veto Harris ([id number]) on 04/27/2021 9:00:52 PM Referred By: REFERRED SELF Confirmed By:Veto Harris
[2021-04-27] MEDS: SODIUM CHLORIDE 0.9% 10ML FLUSH IV SCH (22:24)
[2021-04-28] MEDS ORDERED: VANCOMYCIN HCL 1,500 MG in SODIUM CHLORIDE 0.9% 500 ML IV SCH (02:00)
[2021-04-28] MEDS: LACTATED RINGER'S 1,000 ML IV SCH ×3 (02:37→17:38)
[2021-04-28] MEDS: ACETAMINOPHEN 325 MG TAB PO PRN ×2 (02:37→10:41)
[2021-04-28] MEDS: cefTRIAXone SODIUM 2,000 MG in DEXTROSE 5% 50 ML IV SCH (05:35)
[2021-04-28] MEDS: MoRPHine SULFATE 2 MG/ML CARP IV PRN ×2 (05:55→10:41)
[2021-04-28 07:35] LABS: Hemoglobin 11.7 g/dL (14.0-18.0); Mean Corpuscular Hemoglobin 28.3 pg (25-34); Mean Corpuscular Hgb Conc 34.4 g/dL (32-36); Mean Corpuscular Volume 82.3 fL (80-100); Mean Platelet Volume 11.9 fL (7.4-10.4); Platelet Count 126 K/uL (130-400); RDW Coefficient of Variation 13.9 % (11.5-14.5); RDW Standard Deviation 42.2 fL (36.4-46.3); Red Blood Count 4.13 M/uL (4.7-6.1); White Blood Count 12.17 K/uL (4.8-10.8)
[2021-04-28 08:00] LABS: Dohle Bodies 1+; Eosinophils # (auto) 0.07 K/uL (0-0.5); Eosinophils % (auto) 0.6 %; Immature Granulocytes # (auto) 0.09 K/uL (0.00-0.02); Immature Granulocytes % (auto) 0.7 %; Lymphocytes # (auto) 0.76 K/uL (1.2-3.4); Lymphocytes % (auto) 6.2 %; Monocytes # (auto) 0.14 K/uL (0.11-0.59); Monocytes % (auto) 1.2 %; Neutrophils # (auto) 11.11 K/uL (1.4-6.5); Neutrophils % (auto) 91.3 %; Toxic Vacuolation 1+
[2021-04-28 08:04] LABS: Albumin Level 1.8 gm/dl (3.4-5.0); BUN Creatinine Ratio 12.4 (10-20); C Reactive Protein 17.2 mg/dl (0-0.29); Calcium 8.1 mg/dl (8.5-10.1); Creatinine Clr Calc Pharmacy 120.3 ml/min; Est GFR (African American) 104.6 ml/min; Est GFR (Non-African American) 90.2 ml/min; Potassium 3.6 mmol/L (3.5-5.1)
[2021-04-28 08:10] LABS: Albumin Globulin Ratio 0.3 (0.9-2); Globulin 5.4 gm/dl (2.5-4.0); Total Protein 7.2 gm/dl (6.4-8.2); Troponin I 6.87 ng/ml (0-0.045)
[2021-04-28] MEDS: CHOLECALCIFEROL 5,000 UNITS 125 MCG TAB PO SCH (08:35)
[2021-04-28] MEDS: ENOXAPARIN 100 MG/1ML SYR SQ SCH (08:36)
[2021-04-28] MEDS: ZINC SULFATE 220 MG CAPSULE PO SCH (08:36)
[2021-04-28] MEDS: ASPIRIN 325 MG ECTAB PO SCH (08:36)
[2021-04-28] MEDS ORDERED: dexAMETHasone 10 MG in SYRINGE 0 ML IV SCH (09:00)
[2021-04-28] MEDS: ONDANSETRON INJ 2 MG/ML 2 ML VIAL IV PRN (10:40)
[2021-04-28] MEDS: DOXYCYCLINE HYCLATE 100 MG in DEXTROSE 5% 100 ML IV SCH ×2 (12:17→23:11)
[2021-04-28] MEDS ORDERED: FUROSEMIDE INJ 20 MG/2 ML VIAL IV ONE ×2 (12:30→21:44)
[2021-04-28] MEDS: methylPREDNISolone 60 MG in SYRINGE 0 ML IV SCH ×2 (14:53→22:01)
[2021-04-28] MEDS ORDERED: IMMUNE GLOBULIN (HUMAN) SOLN IV ONE (15:31)
[2021-04-28] MEDS: ERGOCALCIFEROL 50,000 UNITS 1250 MCG CAP PO SCH (16:48)
[2021-04-28] MEDS: IMMUN GLOBG(IGG)/MALT/IGA OV50 200 ML IV SCH ×5 (16:49→21:53)
--- NOTE | 2021-04-28 16:49 | XRay Report ---
SINGLE VIEW CHEST CLINICAL HISTORY: Hypoxia. Covid pneumonia. FINDINGS: An AP, portable, upright chest radiograph is compared to study dated 04/26/2021 and correla roscoe with chest CT dated 04/27/2021. The examination is degraded by portable technique and patient rotat ion. The cardiomediastinal silhouette is unremarkable. Multifocal airspace consolidation has worsen ed as compared to previous. Small pleural effusions are noted. No pneumothorax is seen. The bony thor ax is grossly intact. IMPRESSION: 1. Multifocal airspace consolidation has significantly worsened as compared to previous. This is cons istent with the reported history of a viral pneumonia, and radiographic follow-up to resolution is re commended. 2. Small pleural effusions are noted. ACT 112: Negative or not required by law. Electronically signed by: Emeterio Man M.D. 04/28/2021 4:48 PM
--- NOTE | 2021-04-28 18:58 | Hospitalist Progress Note ---
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 Infiltrate on admission CT possibly inflammatory response, but also possibly bacterialsee below) (2) Pneumonia: Plan: CT scan on admission with a rounded area of pneumonia right upper lobeconcerning for septic embolus. At the same time his blood cultures have been repeatedly negative, echo shows no vegetation, and CT did not show any other emboli. This may all be inflammatory from above, certainly he is at risk for bacterial overgrowth as wellis on doxycycline and Rocephin. Worsening oxygen requirement through the daysurprisingly clear lungs on examchest x-ray checkedlooking to be more like a diffuse multifocal pneumonia/viral process, concerning given this may be all immunologic, but definitely want to have more clarity on exactly what is going ontherefore repeat CT. Signed out to night coverage. (3) Elevated troponin: Plan: Appears to have peaked at 6.9now trending back down. Follow periodically. Echo fortunately reassuring. I suspect this represents myocarditis from above (4) Thrombocytopenia: Plan: See abovefortunately trending up (5) LFTs abnormal: Plan: See above, fortunately starting to trend down (6) Acute dehydration: Plan: FromNeeding fairly vigorous fluids to keep pace with his son and respiration/fevers. Creatinine 1.1better than before. Continue to follow closely (7) DVT prophylaxis: Plan: Lovenox Admission and Anticipated Discharge Date Admission Date: April 26, 2021 Subjective Feeling very fatigued. Headache still present, although maybe not quite as bad as before. Was febrile for several hours this morning, tachycardic at the same time as being febrile. Requiring more oxygenalthough he notes mostly feels fatigue not dyspnea. No chest pain. Rash overall seems to be a little bit better. No diarrhea today. Case discussed with rheumatologyhad not seen any of this particular illness yet personallywas kind enough to reach out to several colleagues at different institutions, and the general consensus was steroids and IVIG as well as supportive carewhich we are doing. Input and efforts greatly appreciated. Review of Systems Review of Systems: All systems reviewed & are unremarkable except as noted in HPI & below Physical Exam Physical Exam: Awake and alert very fatigued no distress. HEENT normocephalic atraumatic mucous membranes are moist. Cardio is distant. Lungs are surprisingly clear to auscultation bilaterally no rales rhonchi or wheezes good effort no accessory muscle use. Abdomen is soft nondistended nontender no masses organomegaly. Skin shows diffuse predominantly macular may be a little bit maculopapular rash fading to purple from before where it was more red, does not tawana. At this point he has a faint blotchy rash on his low back that is much more of a large macular rash, the predominance of the more maculopapular is on his legs. Neuro shows cranial nerves II through XII be grossly intact gross motor and sensory are intact, no focal deficits. Results & Data Results & Data ([facility]) Vital Signs (Past 12 Hours) Vital Signs Temp Pulse Pulse Resp BP Pulse Ox 04/28/21 17:34 98.1 F 96 H 18 114/79 97 04/28/21 16:31 98.1 F 96 H 20 100/63 90 04/28/21 15:28 102 H 04/28/21 11:33 103.3 F H 126 H 26 H 106/64 89 L 04/28/21 10:55 100.3 F H 131 H 17 105/62 92 04/28/21 07:15 102.7 F H 132 H 20 99/60 L 93 PG Care Time/CCT Total # of Minutes Spent Total Time Spent with Patient: Total time spent is greater than 50% in coordination of care (as documented) at patient's floor/unit and/or counseling patient: Coding Level of Care Code 34050 Subseq Hosp Care Lvl 3 Diagnoses 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
[2021-04-28] MEDS ORDERED: OPTIRAY 320 125ml IV ONE (20:10)
[2021-04-28] MEDS: SODIUM CHLORIDE 0.9% 10ML FLUSH IV SCH (21:37)
[2021-04-28] MEDS: ENOXAPARIN INJ 40 MG/0.4 ML SYR SQ SCH (21:52)
[2021-04-28] MEDS: CALCIUM CARBONATE 500 MG CHEWABLE TAB PO PRN (21:54)
[2021-04-29] MEDS: cefTRIAXone SODIUM 2,000 MG in DEXTROSE 5% 50 ML IV SCH (03:28)
[2021-04-29] MEDS: CALCIUM CARBONATE 500 MG CHEWABLE TAB PO PRN (03:54)
[2021-04-29] MEDS: methylPREDNISolone 60 MG in SYRINGE 0 ML IV SCH ×3 (05:56→20:29)
[2021-04-29 06:47] LABS: Hematocrit (blood only) 32.9 % (42-52); Hemoglobin 11.1 g/dL (14.0-18.0); Mean Corpuscular Hgb Conc 33.7 g/dL (32-36); Mean Corpuscular Volume 82.9 fL (80-100); Mean Platelet Volume 12.1 fL (7.4-10.4); Nucleated RBC # (auto) 0.03 K/uL (0-0); Nucleated RBC % (auto) 0.3 %; Platelet Count 119 K/uL (130-400); RDW Coefficient of Variation 14.3 % (11.5-14.5); RDW Standard Deviation 43.5 fL (36.4-46.3); Red Blood Count 3.97 M/uL (4.7-6.1); White Blood Count 11.57 K/uL (4.8-10.8)
[2021-04-29 07:10] LABS: Basophils # (auto) 0.04 K/uL (0-0.2); Basophils % (auto) 0.3 %; Eosinophils # (auto) 0.02 K/uL (0-0.5); Eosinophils % (auto) 0.2 %; Immature Granulocytes # (auto) 0.09 K/uL (0.00-0.02); Immature Granulocytes % (auto) 0.8 %; Lymphocytes # (auto) 1.38 K/uL (1.2-3.4); Lymphocytes % (auto) 11.9 %; Monocytes # (auto) 0.35 K/uL (0.11-0.59); Neutrophils # (auto) 9.69 K/uL (1.4-6.5); Neutrophils % (auto) 83.8 %
[2021-04-29 07:31] LABS: Albumin Level 1.6 gm/dl (3.4-5.0); BUN Creatinine Ratio 19.4 (10-20); Calcium 8.2 mg/dl (8.5-10.1); Creatinine Clr Calc Pharmacy 114.3 ml/min; Est GFR (African American) 98.1 ml/min; Est GFR (Non-African American) 84.6 ml/min; Potassium 3.8 mmol/L (3.5-5.1)
--- NOTE | 2021-04-29 07:37 | CT Scan Report ---
CT angio chest PE protocol CLINICAL HISTORY: worsening hypoxia CXR ?infiltrate vs fluid, ?PE TECHNIQUE: Multidetector row helical CT of the chest was performed. Coronal and sagittal reformations were obtained. Coronal and sagittal MIPS were obtained from the axial data set and were submitted fo r review. Automated dose lowering techniques and/or adjustment according to patient size were utiliz ed for this exam. Comparison: None available at the time of this dictation. FINDINGS: Lungs and pleura: Bilateral pleural effusions are seen. Atelectasis is seen alongside patchy airspace opacities. There is mild interlobular septal thickening. Heart and pericardium: There is cardiomegaly without evidence of pericardial effusion. Reflux of cont rast into the IVC is seen. Vessels: No evidence of pulmonary embolism. Mediastinum and ubaldo: Unremarkable. Chest wall and lower neck: Unremarkable. Abdomen: A hiatal hernia is seen. Bones: Unremarkable. IMPRESSION: 1. No evidence of pulmonary embolism. 2. Bilateral pleural effusions. 3. Atelectasis with possible superimposed consolidative opacities which may represent pneumonia. 4. Cardiomegaly and heart failure with mild to moderate pulmonary edema. ACT 112: Negative or not required by law. Electronically signed by: Jaylen Robison M.D. 04/29/2021 7:36 AM
[2021-04-29 08:04] LABS: Albumin Globulin Ratio 0.2 (0.9-2); Bilirubin,Total 0.7 mg/dl (0.2-1); C Reactive Protein 17.6 mg/dl (0-0.29); Globulin 6.6 gm/dl (2.5-4.0); Total Protein 8.2 gm/dl (6.4-8.2); Troponin I 2.56 ng/ml (0-0.045)
[2021-04-29] MEDS ORDERED: PANTOprazole 40 MG TAB PO SCH (09:00)
[2021-04-29] MEDS: ASPIRIN 325 MG ECTAB PO SCH (09:20)
[2021-04-29] MEDS: ZINC SULFATE 220 MG CAPSULE PO SCH (09:20)
[2021-04-29] MEDS: ENOXAPARIN INJ 40 MG/0.4 ML SYR SQ SCH ×2 (09:20→20:30)
[2021-04-29] MEDS: ERGOCALCIFEROL 50,000 UNITS 1250 MCG CAP PO SCH (09:21)
[2021-04-29] MEDS: CHOLECALCIFEROL 1,000 UNITS 25 MCG TAB PO SCH (09:21)
[2021-04-29] MEDS: DOXYCYCLINE HYCLATE 100 MG in DEXTROSE 5% 100 ML IV SCH ×2 (09:24→21:47)
[2021-04-29 10:08] LABS: Estimated Average Glucose 126 mg/dl
[2021-04-29 10:50] LABS: Hepatitis B Surf Ag Rflx Conf Neg (Neg)
[2021-04-29 11:18] LABS: Hepatitis C IgG 13Yrs+Old_Rflx Neg (Neg)
--- NOTE | 2021-04-29 12:56 | Electrocardiogram Report ---
Test Reason : Blood Pressure : / mmHG Vent. Rate : 132 BPM Atrial Rate : 059 BPM P-R Int : 000 ms QRS Dur : 086 ms QT Int : 280 ms P-R-T Axes : 000 081 020 degrees QTc Int : 414 ms Supraventricular tachycardia Poor R wave progression, consider anterior OK vs. lead placement vs. LVH Abnormal ECG When compared with ECG of 26-APR-2021 20:33, No significant change Confirmed by Jonh Damon ([id number]) on 04/29/2021 12:55:52 PM Referred By: REFERRED SELF Confirmed By:Jonh Damon
--- NOTE | 2021-04-29 14:14 | Electrocardiogram Report ---
Test Reason : Blood Pressure : / mmHG Vent. Rate : 098 BPM Atrial Rate : 098 BPM P-R Int : 168 ms QRS Dur : 100 ms QT Int : 382 ms P-R-T Axes : 036 065 012 degrees QTc Int : 487 ms Normal sinus rhythm Possible Left atrial enlargement Incomplete right bundle branch block Nonspecific T wave abnormality Prolonged QT Abnormal ECG When compared with ECG of 28-APR-2021 08:27, (unconfirmed) Criteria for Anterior infarct are no longer Present Confirmed by Jonh Damon ([id number]) on 04/29/2021 2:14:29 PM Referred By: REFERRED SELF Confirmed By:Jonh Damon
[2021-04-29] MEDS ORDERED: FUROSEMIDE INJ 20 MG/2 ML VIAL IV ONE (14:47)
--- NOTE | 2021-04-29 14:49 | Hospitalist Progress Note ---
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 had COVID-19 infection in 02/2021 - fully resolved. then with numerous symptoms/signs developing late March 2021 - fevers, chills, headaches, conjunctivitis, diffuse rash, numerous lab abnormalities c/w marked inflammation, positive troponin, etc. previous attending Dr Diallo spoke with [facility] Rheumatology. given the clinical picture decision made to Rx for MIS-A with IVIG and high-dose steroids. IVIG given 04/28/21. solumedrol IV started 04/28/21. remains on aspirin, DVT proph with lovenox, etc. troponin trending down. crp trending down. no fever since yesterday morning. patient with cardiac involvement as evidenced by his +troponin with peak nearly 7. fortunately echo on 04/27/21 with preserved eF. no symptoms of pericarditis at this time. spoke with [facility] cardiology - asked them to consult for concern for myocarditis in setting of possible MIS-A. formal pulmonary consultation requested. placed phone call to [facility] Rheumatology, [place] office, this afternoon. reviewed care. may need to contact [facility] Rheum in [place] for additional recs - will do so in am. Dr Hyman from pulmonary saw pt in consult - sent MICHELLE, RF, anti-CCP. repeat all labs including crp, etc in am. (2) Pneumonia: Plan: as seen on chest CT. procal elevated. treat for possible bacterial pneumonia - cont with IV rocephin with doxy. blood cx's neg to date. (3) Elevated troponin: Plan: Peak 6.9. Now <3. Echo 04/27/21 noted (preserved EF). formal cards consult in am. myocarditis/cardiac involvement from MIS-A? some element of volume overload radiographically - IV fluids stopped; diurese with IV lasix. (4) Thrombocytopenia: Plan: 2nd #1 cbc daily (5) LFTs abnormal: Plan: 2nd #1 trend (6) Acute dehydration: Plan: resolved. all fluids d/c. needs diuresis now based on clinical exam and CT chest. (7) DVT prophylaxis: Plan: Lovenox (8) Acute respiratory failure with hypoxia: Plan: 2nd to pneumonia +/- pulmonary edema/volume overload. Treating both issues. (9) Pleural effusion: Plan: b/l (10) COVID: Plan: initial dx 02/2021 - fully recovered from his illness then now with suspected MIS-A as above (11) Hyponatremia: Plan: 2nd to lasix along with volume overload trend BMP (12) Prediabetes: Plan: a1c 6% c/w pre-DM will d/w patient tomorrow change diet to DM lantus HS novolog achs adjust as needed Plan: extensively updated by phone care d/w cardiology, pulmonary, and rheumatology total care time today - 75 minutes - VERY complex medical care requiring complex care coordination added additional meds for stomach upset (carafate 1gm qid) does have h/o GERD Admission and Anticipated Discharge Date Admission Date: April 26, 2021 Subjective tele stable overnight patient continues to feel poorly - only marginally better (if any ) vs yesterday continues with rash on arms, torso, and legs - minimal improvement today no pruritis continues with severe fatigue, body aches, and malaise with poor appetite does report dyspnea on exertion with only mild activity Review of Systems Review of Systems: gen - fevers/chills yesterday, none today neuro - headache improved GI - c/o dyspepsia, reflux, and stomach upset with eating; no nausea/emesis musculo - no joint swelling eyes - ongoing irritation Physical Exam Physical Exam: gen - looks ill, no acute distress however eyes - conjunctival and scleral injection b/l, no drainage mouth - MMM heart - borderline tachy, s1 s2, no murmur lungs - mild rales on right, no wheeze, no increased work of breathing abd - soft, spleen palpable, BS+, NT ext - trace edema, pulses 2+ b/l skin - diffuse erythematous rash on torso, arms, legs; the rash on legs does have a petechial appearance to it musculo - no effusions of small/large joints neuro - no focal deficits Results & Data Results & Data ([facility]) Vital Signs (Past 12 Hours) Vital Signs Temp Pulse Resp BP Pulse Ox 04/29/21 12:20 37.0 C 97 H 18 115/76 95 04/29/21 10:00 120/68 04/29/21 07:52 36.5 C 102 H 20 128/78 96 04/29/21 05:59 96 H 111/66 04/29/21 04:00 96 H 111/74 04/29/21 03:30 36.5 C 97 H 20 120/83 97 Laboratory Results Laboratory Results - last 24 hr 04/27/21 04/27/21 04/27/21 04:39 04:39 04:39 WBC RBC Hgb Hct MCV MCH MCHC RDW Std Deviation RDW Coeff of Rhoda Plt Count MPV Immature Gran % (Auto) Neut % (Auto) Lymph % (Auto) [place] % (Auto) Eos % (Auto) Baso % (Auto) Neut # (Auto) Lymph # (Auto) [place] # (Auto) Eos # (Auto) Baso # (Auto) Immature Gran # (Auto) Absolute Nucleated RBC Nucleated RBC % (auto) Peripher Smr Path Cons Sodium Potassium Chloride Carbon Dioxide Anion Gap BUN Creatinine Est Cr Clr Drug Dosing Est GFR ( Amer) Est GFR (Non-Af Amer) BUN/Creatinine Ratio Glucose POC Glucose Estimat Average Glucose Hemoglobin A1c Calcium Total Bilirubin AST ALT Alkaline Phosphatase Troponin I C-Reactive Protein Total Protein Albumin Globulin Albumin/Globulin Ratio Hepatitis A IgM Ab NON-REACTIVE Hep Bs Antigen Neg Hep B Core IgM Ab NON-REACTIVE Hepatitis C Antibody Neg 04/29/21 04/29/21 04/29/21 06:16 06:16 07:54 WBC 11.57 H RBC 3.97 L Hgb 11.1 L Hct 32.9 L MCV 82.9 MCH 28.0 MCHC 33.7 RDW Std Deviation 43.5 RDW Coeff of Rhoda 14.3 Plt Count 119 L MPV 12.1 H Immature Gran % (Auto) 0.8 Neut % (Auto) 83.8 Lymph % (Auto) 11.9 [place] % (Auto) 3.0 Eos % (Auto) 0.2 Baso % (Auto) 0.3 Neut # (Auto) 9.69 H Lymph # (Auto) 1.38 [place] # (Auto) 0.35 Eos # (Auto) 0.02 Baso # (Auto) 0.04 Immature Gran # (Auto) 0.09 H Absolute Nucleated RBC 0.03 H Nucleated RBC % (auto) 0.3 Peripher Smr Path Cons Sodium 132 L Potassium 3.8 Chloride 100 Carbon Dioxide 24 Anion Gap 8.0 BUN 22 H D Creatinine 1.16 Est Cr Clr Drug Dosing 114.3 Est GFR ( Amer) 98.1 Est GFR (Non-Af Amer) 84.6 BUN/Creatinine Ratio 19.4 Glucose 222 H POC Glucose Estimat Average Glucose 126 Hemoglobin A1c 6.0 H Calcium 8.2 L Total Bilirubin 0.7 AST 48 H ALT 86 H Alkaline Phosphatase 87 Troponin I 2.560 H* C-Reactive Protein 17.60 H Total Protein 8.2 Albumin 1.6 L Globulin 6.6 H Albumin/Globulin Ratio 0.2 L Hepatitis A IgM Ab Hep Bs Antigen Hep B Core IgM Ab Hepatitis C Antibody 04/29/21 04/29/21 16:39 20:26 WBC RBC Hgb Hct MCV MCH MCHC RDW Std Deviation RDW Coeff of Rhoda Plt Count MPV Immature Gran % (Auto) Neut % (Auto) Lymph % (Auto) [place] % (Auto) Eos % (Auto) Baso % (Auto) Neut # (Auto) Lymph # (Auto) [place] # (Auto) Eos # (Auto) Baso # (Auto) Immature Gran # (Auto) Absolute Nucleated RBC Nucleated RBC % (auto) Peripher Smr Path Cons Sodium Potassium Chloride Carbon Dioxide Anion Gap BUN Creatinine Est Cr Clr Drug Dosing Est GFR ( Amer) Est GFR (Non-Af Amer) BUN/Creatinine Ratio Glucose POC Glucose 245 H 249 H Estimat Average Glucose Hemoglobin A1c Calcium Total Bilirubin AST ALT Alkaline Phosphatase Troponin I C-Reactive Protein Total Protein Albumin Globulin Albumin/Globulin Ratio Hepatitis A IgM Ab Hep Bs Antigen Hep B Core IgM Ab Hepatitis C Antibody PG Care Time/CCT Total # of Minutes Spent Total Time Spent with Patient: Total time spent is greater than 50% in coordination of care (as documented) at patient's floor/unit and/or counseling patient: Prolonged Care Time Prolonged Care Time: Yes 75 Coding Level of Care Code 70606 Subseq Hosp Care Lvl 3 (25 - SIGNIFICANT, SEPARATELY IDENTIFIABLE ) Diagnoses 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
--- NOTE | 2021-04-29 15:04 | Pulmonary Consultation ---
Date of Consultation April 29, 2021 Assessment & Plan (1) Pneumonia: (2) Pleural effusion: (3) Acute respiratory failure with hypoxia: CT chest 04/28/2021 personally reviewed: Interlobular thickening appreciated bilaterally, consolidative process dense in the right upper lobe as well as rig ht middle lobe, dependent atelectasis bilateral lower lobes bilateral pleural effusion cardiomegaly no mediastinal lymphadenopathy this CAT scan seem to be worse compared to the one which was done on 04/27/2021. The CAT scan showed right upper lobe consolidative process and minimal dependent atelectasis bilateral lower lobes --Acute hypoxic respiratory failure likely secondary to bilateral pleural effusion COVID-19 PCR positive 04/24/2021, initial + 03/18/2021 CRP 25.3 --> 17.6 Procalcitonin 6.34 nasal MRSA negative Continue with O2 supplementation to keep oxygen saturation between 90-92%. Continue with Rocephin and doxycycline for at least 5 days given the elevated procalcitonin Recommend patient to be kept euvolemic to negative balance --Bilateral pleural effusion likely from IV fluids given in the hospital continue with Lasix to keep the patient negative balance now --Multisystem inflammatory syndrome possibility from Covid is there but it should be diagnosis of exclusion follow-up autoimmune work-up defer management to rheumatology Strong family history of lupus in mother. hep C antibody negative. Hep B pending Plan: Patient does have elevated inflammatory markers and is currently being treated with IVIG as well as steroids as per rheumatology recommendations will defer the management to them I'm going to order autoimmune work-up which includes rheumatoid factor as well as anti-CCP along with MICHELLE with reflex. Given the significant development of bilateral pleural effusion in size short duration of time as well as elevated troponin I would recommend a limited 2D echo done again to see if there is any worsening of ejection fraction myocarditis might be playing a role DC IV fluids Continue with diuretics to keep the patient negative balance Case was discussed with Dr. Toro Please note the above document was generated using voice recognition software. It may contain grammatical, syntax or spelling errors.Any formal questions or concerns about the content, text or information contained within the body of this dictation should be directly addressed to the provider for clarification. History of Present Illness Attending Physician: Lavelle Josue History of Present Illness 30-year-old male with no significant past medical history except for initial diagnosis of Covid-19 back in February. Patient also had another COVID-19 test done on 04/24/2021 which was positive. He had LP done at that time. Strong family history of lupus in mother. Patient comes back again with complaints of headache, shortness of breath and dyspnea on exertion. Pulmonary were consulted for abnormal chest CT At the time of examination patient was saturating 95-96% on 2 L nasal cannula. He is not in any respiratory distress He denies any chest pain. Shortness of breath is improved No headache, no blurry vision. Denies any dysuria, no diarrhea. No hematuria, no hematochezia. No headache, no blurry vision Patient denies any Raynaud's phenomena. Denies any personal history of any autoimmune disease. Social history: Non-smoker, denies vaping Allergies Allergy/AdvReac Type Severity Reaction Status Date / Time No Known Allergies Allergy Verified 04/26/21 20:50 Home Medications Medication Instructions Recorded Confirmed Type acetaminophen 500 mg tablet 500 mg PO Q8 PRN MDD FEVER/PAIN 04/24/21 04/26/21 History ondansetron 4 mg disintegrating 4 mg PO Q8H PRN #10 tab 04/24/21 04/26/21 Rx tablet ibuprofen 200 mg tablet 800 mg PO Q8H PRN 04/26/21 04/26/21 History Patient History Medical History COVID Surgical History H/O vasectomy 01/2021 Family History Other No significant family history Social History Smoking Status: Never smoker Hx Alcohol Use: No Hx Substance Use: No Preferred Language: Bahamian Communication Ability: Effective Visual Impairment: No Limitations Hearing Ability: Normal Business Performance Specialist Required: No Beliefs That Will Affect Care: None marital status: Current Living Situation: Spouse Current Living Situation Comment: and 3 kids current occupational status: unemployed How many Children do You have: 3 Feels Safe at Home: Yes during the past year weight has: increased > 10 lbs Dental Care, Regularly: No Physical Activity Frequency: Does not Exercise Assistive Devices: None Review of Systems Review of Systems: All systems reviewed & are unremarkable except as noted in HPI & below Physical Exam Physical Exam: Constitutional: No acute distress HEENT: EOMI, PERRLA, positive malar rash Respiratory system: Decreased air entry bilaterally, no wheeze, rhonchi, positive crackles bilaterally CVS: S1-S2 positive, no murmurs or gallops Abdomen: Soft, nontender, nondistended, positive bowel sounds x4 Extremities: +2 pulses bilaterally radialis/ dorsalis pedis, no cyanosis, no edema Neuro: Awake alert oriented x3 Psych: Normal mood and affect G/U: No [place] Skin: no rashes, warm and dry Lymphatic: no cervical or axillary lymphadenopathy Results & Data Results & Data ([facility]) Vital Signs (Past 12 Hours) Vital Signs Temp Pulse Resp BP Pulse Ox 04/29/21 12:20 37.0 C 97 H 18 115/76 95 04/29/21 10:00 120/68 04/29/21 07:52 36.5 C 102 H 20 128/78 96 04/29/21 05:59 96 H 111/66 04/29/21 04:00 96 H 111/74 04/29/21 03:30 36.5 C 97 H 20 120/83 97 04/29/21 06:16 04/29/21 06:16 PG Care Time/CCT Total # of Minutes Spent Total Time Spent with Patient: Total time spent is greater than 50% in coordination of care (as documented) at patient's floor/unit and/or counseling patient: [place] [address] Inpt Consult Level 5 Patient Type New Diagnoses Pneumonia J18.9 Pleural effusion J90 Acute respiratory failure with hypoxia J96.01
[2021-04-29] MEDS: SUCRALFATE 1 GM/10 ML UDC PO SCH ×2 (17:52→20:29)
[2021-04-29] MEDS: INSULIN ASPART PER UNIT SC SCH ×2 (18:00→21:47)
[2021-04-29] MEDS: PANTOprazole 40 MG TAB PO SCH (20:29)
[2021-04-29] MEDS: INSULIN GLARGINE SOLOSTAR 100 UNITS/ML 3 ML PEN SC SCH (21:47)
[2021-04-29] MEDS: SODIUM CHLORIDE 0.9% 10ML FLUSH IV SCH (21:54)
[2021-04-30 03:28] LABS: Hepatitis A Antibody IgM NON-REACTIVE (NON-REACTIVE); Hepatitis B Core Antibody IgM NON-REACTIVE (NON-REACTIVE)
[2021-04-30] MEDS: cefTRIAXone SODIUM 2,000 MG in DEXTROSE 5% 50 ML IV SCH (03:44)
[2021-04-30] MEDS: methylPREDNISolone 60 MG in SYRINGE 0 ML IV SCH ×3 (05:00→21:39)
[2021-04-30 07:54] LABS: Hematocrit (blood only) 36.5 % (42-52); Hemoglobin 12.5 g/dL (14.0-18.0); Mean Corpuscular Hemoglobin 28.7 pg (25-34); Mean Corpuscular Hgb Conc 34.2 g/dL (32-36); Mean Corpuscular Volume 83.7 fL (80-100); Mean Platelet Volume 12.4 fL (7.4-10.4); Nucleated RBC # (auto) 0.08 K/uL (0-0); Nucleated RBC % (auto) 0.4 %; Platelet Count 155 K/uL (130-400); RDW Coefficient of Variation 14.3 % (11.5-14.5); RDW Standard Deviation 43.8 fL (36.4-46.3); Red Blood Count 4.36 M/uL (4.7-6.1); White Blood Count 23.48 K/uL (4.8-10.8)
[2021-04-30 08:11] LABS: BUN Creatinine Ratio 28.5 (10-20); Creatinine Clr Calc Pharmacy 130.5 ml/min; Potassium 3.7 mmol/L (3.5-5.1)
[2021-04-30] MEDS ORDERED: POTASSIUM CHLORIDE CRTAB 20 MEQ TABCR PO STA (08:20)
[2021-04-30 08:26] LABS: C Reactive Protein 8.98 mg/dl (0-0.29); Troponin I 2.08 ng/ml (0-0.045)
[2021-04-30] MEDS ORDERED: FUROSEMIDE INJ 20 MG/2 ML VIAL IV ONE (08:30)
[2021-04-30] MEDS ORDERED: INSULIN GLARGINE SOLOSTAR 100 UNITS/ML 3 ML PEN SC SCH (09:00)
[2021-04-30] MEDS: ZINC SULFATE 220 MG CAPSULE PO SCH (09:19)
[2021-04-30] MEDS: PANTOprazole 40 MG TAB PO SCH ×2 (09:19→21:39)
[2021-04-30] MEDS: ASPIRIN 325 MG ECTAB PO SCH (09:19)
[2021-04-30] MEDS: ENOXAPARIN INJ 40 MG/0.4 ML SYR SQ SCH ×2 (09:19→21:39)
[2021-04-30] MEDS: SUCRALFATE 1 GM/10 ML UDC PO SCH ×4 (09:20→21:39)
[2021-04-30] MEDS: INSULIN ASPART PER UNIT SC SCH ×4 (09:20→21:38)
[2021-04-30] MEDS: CHOLECALCIFEROL 1,000 UNITS 25 MCG TAB PO SCH (09:20)
--- NOTE | 2021-04-30 09:40 | XCELERA ---
[id number] \\[id number]
[2021-04-30] MEDS: DOXYCYCLINE HYCLATE 100 MG in DEXTROSE 5% 100 ML IV SCH ×2 (10:23→21:40)
--- NOTE | 2021-04-30 11:53 | Hospitalist Progress Note ---
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 slowly IMPROVING based on labs, resolution of fever, etc. had COVID-19 infection in 02/2021 - fully resolved. then with numerous symptoms/signs developing late March 2021 - fevers, chills, headaches, conjunctivitis, diffuse rash, numerous lab abnormalities c/w marked inflammation, positive troponin, etc. previous attending Dr Diallo spoke with [facility] Rheumatology. given the clinical picture decision made to Rx for MIS-A with IVIG and high-dose steroids. IVIG given 04/28/21. solumedrol IV started 04/28/21. remains on solumedrol 60mg IV TID. remains on aspirin, DVT proph with lovenox, etc. troponin cont to trend down. crp MUCH improved today; peak was 25, now 8. no fever in 48+ hours. patient with cardiac involvement as evidenced by his +troponin with peak nearly 7. fortunately echo on 04/27/21 with preserved EF. no symptoms of pericarditis at this time. repeat echo today again with preserved EF. appreciate [facility] [place] Cardiology consult - no specific cardiac recs at this time. appreciate pulmonary consult - continue diuresis, await MICHELLE/RF/anti-CCP ab's, cont steroids. will contact [facility] in [place] for additional recs tomorrow especially re: steroids, length of course/taper, etc. cont supportive care. repeat crp, lfts, etc in am. (2) Pneumonia: Plan: as seen on chest CT. cont to treat for possible bacterial pneumonia - cont with IV rocephin with doxy. day #4 of such. blood cx's remain negative. (3) Elevated troponin: Plan: Peak 6.9. Now 2. Echo 04/27/21 noted (preserved EF). repeat limited echo today again w/ preserved EF. cardiology consult appreciated. myocarditis/cardiac involvement from MIS-A? nothing further from cardiology standpoint today. cont gentle diuresis. (4) Thrombocytopenia: Plan: 2nd #1 resolved with steroids cbc daily (5) LFTs abnormal: Plan: 2nd #1 mildly high but stable repeat am (6) Acute dehydration: Plan: resolved. (7) DVT prophylaxis: Plan: Lovenox 40mg BID obtain dopplers LEs - r/o DVT given his LE complaints check CPK - r/o myositis / rhabdo (8) Acute respiratory failure with hypoxia: Plan: 2nd to pneumonia + pulmonary edema/volume overload. Treating both issues. stable. (9) Pleural effusion: Plan: b/l diurese (10) COVID: Plan: initial dx 02/2021 - fully recovered from his illness then now with suspected MIS-A as above (11) Hyponatremia: Plan: minimal stable repeat BMP am 2nd volume overload should resolve with diuresis (12) Prediabetes: Plan: a1c 6% c/w pre-DM discussed diagnosis with patient diabetes education consult cont lantus BID tighten novolog (13) GERD (gastroesophageal reflux disease): Plan: PPI twice daily carafate qid stable Plan: extensively updated by phone yesterday and today insomnia- melatonin 6mg HS obtain PT consult Admission and Anticipated Discharge Date Admission Date: April 26, 2021 Subjective tele overnight wnl pt continues to have severe fatigue, HARO, generalized feeling unwell c/o thigh/calf pain ("heaviness") the leg pains are bilateral denies personal or family h/o DVT eating is improved, however continues with mild dyspepsia and mild stomach discomfort with eating no blood in stool rash seems to be a little better eyes still quite irritated Review of Systems Review of Systems: gen - no fevers/chills; ongoing severe weakness/fatigue neuro - no further headache psych - poor sleep/insomnia CV - no chest pain, no orthopnea pulm - no hemoptysis; ongoing cough Physical Exam Physical Exam: gen - no acute distress; continues to look ill but no worse than yesterday eyes - conjunctival and scleral injection b/l, no drainage - unchanged mouth - MMM heart - borderline tachy, s1 s2, no murmur lungs - mild rales RUL, no wheeze, no increased work of breathing abd - soft, spleen palpable, BS+, NT, liver not enlarged ext - no edema, pulses 2+ b/l skin - diffuse erythematous rash on torso - slightly improved; rash on arms - mildly improved; legs - also mildly improved musculo - no synovitis of knees b/l; +shayna's b/l neuro - strength b/l arms 5/5; slightly proximal muscle weakness of b/l legs, but distal leg strength 5/5 Results & Data Results & Data ([facility]) Vital Signs (Past 12 Hours) Vital Signs Temp Pulse Pulse Resp BP Pulse Ox 04/30/21 11:52 37.2 C 87 18 130/73 92 04/30/21 07:54 85 04/30/21 07:34 36.5 C 91 H 20 136/80 91 04/30/21 03:56 37.1 C 88 22 121/71 91 04/30/21 02:00 71 117/71 Laboratory Results Laboratory Results - last 24 hr 04/27/21 04/29/21 04/29/21 04:39 16:39 20:26 WBC RBC Hgb Hct MCV MCH MCHC RDW Std Deviation RDW Coeff of Rhoda Plt Count MPV Absolute Nucleated RBC Nucleated RBC % (auto) Sodium Potassium Chloride Carbon Dioxide Anion Gap BUN Creatinine Est Cr Clr Drug Dosing Est GFR ( Amer) Est GFR (Non-Af Amer) BUN/Creatinine Ratio Glucose POC Glucose 245 H 249 H Calcium AST ALT Troponin I C-Reactive Protein Rheumatoid Factor Cycl Citrul Peptide IgG MICHELLE Screen SS-A/Ro Antibody SS-B/La Antibody Sm ([place]) Antibody ARTIFICIAL INSEMINATOR Antibody Scl-70 Scleroderma Ab Anti-ds DNA (Crithidia) Chromatin Antibody Anti-Centromere Ab Thyroid Antimicrosomal Anti-Cardiolipin IgG Ab Anti-Cardiolipin IgA Ab Anti-Cardiolipin IgM Ab Complement C3 Complement C4 Hepatitis A IgM Ab NON-REACTIVE Hep B Core IgM Ab NON-REACTIVE 04/30/21 04/30/21 04/30/21 07:06 07:06 07:06 WBC 23.48 H RBC 4.36 L Hgb 12.5 L Hct 36.5 L MCV 83.7 MCH 28.7 MCHC 34.2 RDW Std Deviation 43.8 RDW Coeff of Rhoda 14.3 Plt Count 155 MPV 12.4 H Absolute Nucleated RBC 0.08 H Nucleated RBC % (auto) 0.4 Sodium 134 L Potassium 3.7 Chloride 101 Carbon Dioxide 28 Anion Gap 5.0 BUN 29 H Creatinine 1.01 Est Cr Clr Drug Dosing 130.5 Est GFR ( Amer) 116.0 Est GFR (Non-Af Amer) 100.0 BUN/Creatinine Ratio 28.5 H Glucose 206 H POC Glucose Calcium 8.0 L AST 55 H ALT 94 H Troponin I 2.080 H* C-Reactive Protein 8.98 H Rheumatoid Factor Pending Cycl Citrul Peptide IgG Pending MICHELLE Screen Pending SS-A/Ro Antibody Pending SS-B/La Antibody Pending Sm ([place]) Antibody Pending ARTIFICIAL INSEMINATOR Antibody Pending Scl-70 Scleroderma Ab Pending Anti-ds DNA (Crithidia) Pending Chromatin Antibody Pending Anti-Centromere Ab Pending Thyroid Antimicrosomal Pending Anti-Cardiolipin IgG Ab Pending Anti-Cardiolipin IgA Ab Pending Anti-Cardiolipin IgM Ab Pending Complement C3 Pending Complement C4 Pending Hepatitis A IgM Ab Hep B Core IgM Ab 04/30/21 04/30/21 07:39 11:23 WBC RBC Hgb Hct MCV MCH MCHC RDW Std Deviation RDW Coeff of Rhoda Plt Count MPV Absolute Nucleated RBC Nucleated RBC % (auto) Sodium Potassium Chloride Carbon Dioxide Anion Gap BUN Creatinine Est Cr Clr Drug Dosing Est GFR ( Amer) Est GFR (Non-Af Amer) BUN/Creatinine Ratio Glucose POC Glucose 176 H 218 H Calcium AST ALT Troponin I C-Reactive Protein Rheumatoid Factor Cycl Citrul Peptide IgG MICHELLE Screen SS-A/Ro Antibody SS-B/La Antibody Sm ([place]) Antibody ARTIFICIAL INSEMINATOR Antibody Scl-70 Scleroderma Ab Anti-ds DNA (Crith[place]) Chromatin Antibody Anti-Centromere Ab Thyroid Antimicrosomal Anti-Cardiolipin IgG Ab Anti-Cardiolipin IgA Ab Anti-Cardiolipin IgM Ab Complement C3 Complement C4 Hepatitis A IgM Ab Hep B Core IgM Ab Diagnostic Findings repeat limited echo - EF preserved PG Care Time/CCT Total # of Minutes Spent Total Time Spent with Patient: Total time spent is greater than 50% in coordination of care (as documented) at patient's floor/unit and/or counseling patient: Coding Level of Care Code 50863 Subseq Hosp Care Lvl 3 Diagnoses 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
--- NOTE | 2021-04-30 13:03 | Cardiology Consultation ---
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 -management per Dr. Toro. (2) Elevated troponin: -troponin peaked at 6.87 and is now trending down. -fortunately, both of his echocardiograms note normal left ventricular systolic function without wall motion abnormalities. -continue supportive care. -no further cardiac evaluation necessary. History of Present Illness Attending Physician: Lavelle Josue History of Present Illness Mr. Mancilla is a 30-year-old male admitted on April 27 with progressive symptoms felt secondary to a multi system inflammatory syndrome related to recent COVID infection. The patient's troponin I level was elevated, therefore, this consultation was ordered. The patient was in his usual state of health until March 18 when he came down with a COVID infection following his 's illness. The patient did not require hospitalization for his COVID infection until April 24 when he presented with significant headaches felt possibly secondary to meningitis. He underwent a lumbar puncture which was negative. However, his COVID test was still positive. He presented here on April 27 with fever, headaches, shortness of breath, and exertional dyspnea. At no time did experience chest discomfort. He did have diffuse myalgias and arthralgias. The patient has never known of a cardiac event. Fortunately, his echocardiogram performed on April 27 noted normal left ventricular systolic function without wall motion abnormalities. Results personally reviewed and discussed in detail. Currently, patient is resting comfortably in bed without complaints of fever or dyspnea. Past medical and surgical history 1. GERD 2. Vasectomy-January 2021 Social history and lives with his and 4 children Works as a commissioned security officer No tobacco alcohol Family history Mother is 48 and has diabetes and lupus. Father's 59 and healthy Review of systems A 10 review systems was negative except that described above. Allergies Allergy/AdvReac Type Severity Reaction Status Date / Time No Known Allergies Allergy Verified 04/26/21 20:50 Home Medications Medication Instructions Recorded Confirmed Type acetaminophen 500 mg tablet 500 mg PO Q8 PRN MDD FEVER/PAIN 04/24/21 04/26/21 History ondansetron 4 mg disintegrating 4 mg PO Q8H PRN #10 tab 04/24/21 04/26/21 Rx tablet ibuprofen 200 mg tablet 800 mg PO Q8H PRN 04/26/21 04/26/21 History Patient History Medical History COVID Surgical History H/O vasectomy 01/2021 Family History Other No significant family history Social History Smoking Status: Never smoker Hx Alcohol Use: No Hx Substance Use: No Preferred Language: Irish Communication Ability: Effective Visual Impairment: No Limitations Hearing Ability: Normal Traffic Signal Technician Required: No Beliefs That Will Affect Care: None marital status: Current Living Situation: Spouse Current Living Situation Comment: and 3 kids current occupational status: unemployed How many Children do You have: 3 Feels Safe at Home: Yes during the past year weight has: increased > 10 lbs Dental Care, Regularly: No Physical Activity Frequency: Does not Exercise Assistive Devices: Oxygen - Continuous Physical Exam Physical Exam: Physical examination per Dr. Toro as patient in [facility]. Results & Data ([facility]) Vital Signs (Past 12 Hours) Vital Signs Temp Pulse Pulse Resp BP Pulse Ox 04/30/21 11:52 37.2 C 87 18 130/73 92 04/30/21 07:54 85 04/30/21 07:34 36.5 C 91 H 20 136/80 91 04/30/21 03:56 37.1 C 88 22 121/71 91 04/30/21 02:00 71 117/71 Laboratory Results CBC notes able of 12.5, crit 36.5, white count 23.48, platelet count [id number]. Electrolytes note a sodium of 134, potassium 3.7, chloride 101, bicarb 28, BUN 29, creatinine 1.01, and glucose of 206. Initial troponin was 0.15 and this increased to 6.87. Most recent troponin level was down to 2.08. Diagnostic Findings EKG notes normal sinus rhythm with a left atrial abnormality, a right-sided conduction delay, and nonspecific T-wave abnormality. Both echocardiograms notes normal left ventricular systolic function without wall motion abnormalities. There was mild mitral and tricuspid regurgitation. The most recent echocardiogram notes a very small posterior pericardial effusion. Chest x-ray notes bibasilar patchy consolidation. CT scan of the chest noted no pulmonary emboli but did have bilateral pleural effusions, cardiomegaly, and pulmonary edema. 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
--- NOTE | 2021-04-30 13:39 | Ultrasound Report ---
ULTRASOUND BILATERAL LOWER EXTREMITY VENOUS CLINICAL HISTORY: Bilateral leg pain. Covid. COMPARISON STUDY: No priors TECHNIQUE: Portable Real-time, grayscale, and color Doppler sonography of the deep veins of the right and left lower extremity was performed from the inguinal crease to the calf. Compression and augment ation were utilized. FINDINGS: There is no sonographic evidence of deep venous thrombosis identified in the right or left lower extremity. The common femoral, superficial femoral, and popliteal veins are patent and normally compressible bilaterally. The greater saphenous vein and the profunda femoris vein at the junction w ith the common femoral vein are clear in both legs. The visualized calf veins are patent bilaterally. IMPRESSION: There is no sonographic evidence of deep venous thrombosis identified in the right or lef t lower extremity. ACT 112: Negative or not required by law. Electronically signed by: Emeterio Man M.D. 04/30/2021 1:38 PM
[2021-04-30] MEDS: ONDANSETRON INJ 2 MG/ML 2 ML VIAL IV PRN (14:47)
--- NOTE | 2021-04-30 16:06 | Pulmonology Progress Note ---
Date of Service April 30, 2021 Assessment & Plan (1) Pneumonia: (2) Pleural effusion: (3) Acute respiratory failure with hypoxia: Plan: CT chest 04/28/2021 personally reviewed: Interlobular thickening appreciated bilaterally, consolidative process dense in the right upper lobe as well as right middle lobe, dependent atelectasis bilateral lower lobes bilateral pleural effusion cardiomegaly no mediastinal lymphadenopathy this CAT scan seem to be worse compared to the one which was done on 04/27/2021. The CAT scan showed right upper lobe consolidative process and minimal dependent atelectasis bilateral lower lobes --Acute hypoxic respiratory failure likely secondary to bilateral pleural effusion COVID-19 PCR positive 04/24/2021, initial + 03/18/2021 CRP 25.3 --> 17.6 Procalcitonin 6.34 nasal MRSA negative Continue with O2 supplementation to keep oxygen saturation between 90-92%. Continue with Rocephin and doxycycline for at least 5 days given the elevated procalcitonin Recommend patient to be kept euvolemic to negative balance --Bilateral pleural effusion likely from IV fluids given in the hospital continue with Lasix to keep the patient negative balance now --Multisystem inflammatory syndrome possibility from Covid is there but it should be diagnosis of exclusion follow-up autoimmune work-up defer management to rheumatology Strong family history of lupus in mother. hep C antibody negative. Hep B IgM negative Plan: Follow-up rheumatoid factor as well as anti-CCP along with MICHELLE with reflex. Continue with diuretics to keep the patient negative balance Repeat CT in 3 months. Stable from pulmonary perspective. No further recommendation from pulmonary perspective. Plan as per rheumatology and primary care. Please call directly with any questions. Case was discussed with Dr. Toro Please note the above document was generated using voice recognition software. It may contain grammatical, syntax or spelling errors.Any formal questions or concerns about the content, text or information contained within the body of this dictation should be directly addressed to the provider for clarification. Admission and Anticipated Discharge Date Admission Date: April 26, 2021 Subjective Patient seen and examined at bedside. No acute distress, no events overnight Patient was saturating 93% at the time of examination on 2 L I went down to 1 L. Denies any chest pain. Overall he is feeling better. He has been using incentive spirometry. Denies any hemoptysis. Fair appetite. Review of Systems Review of Systems: All systems reviewed & are unremarkable except as noted in Subjective Physical Exam Physical Exam: Constitutional: No acute distress HEENT: EOMI, PERRLA, positive malar rash Respiratory system: Decreased air entry bilaterally, no wheeze, rhonchi, pos itive crackles bilaterally CVS: S1-S2 positive, no murmurs or gallops Abdomen: Soft, nontender, nondistended, positive bowel sounds x4 Extremities: +2 pulses bilaterally radialis/ dorsalis pedis, no cyanosis, no edema Neuro: Awake alert oriented x3 Psych: Normal mood and affect G/U: No [place] Skin: no rashes, warm and dry Lymphatic: no cervical or axillary lymphadenopathy Results & Data Results & Data ([facility]) Vital Signs (Past 12 Hours) Vital Signs Temp Pulse Pulse Resp BP Pulse Ox 04/30/21 15:42 93 H 04/30/21 11:52 37.2 C 87 18 130/73 92 04/30/21 07:54 85 04/30/21 07:34 36.5 C 91 H 20 136/80 91 Laboratory Results 04/30/21 07:06 04/30/21 07:06 PG Care Time/CCT Total # of Minutes Spent Total Time Spent with Patient: Total time spent is greater than 50% in coordination of care (as documented) at patient's floor/unit and/or counseling patient: Coding Level of Care Code 79316 Subseq Hosp Care Lvl 2 Diagnoses Pneumonia J18.9 Pleural effusion J90 Acute respiratory failure with hypoxia J96.01
[2021-04-30] MEDS: INSULIN GLARGINE SOLOSTAR 100 UNITS/ML 3 ML PEN SC SCH (21:38)
[2021-04-30] MEDS: MELATONIN 3 MG TAB PO SCH (21:39)
[2021-05-01] MEDS: SODIUM CHLORIDE 0.9% 10ML FLUSH IV SCH (00:05)
[2021-05-01] MEDS: cefTRIAXone SODIUM 2,000 MG in DEXTROSE 5% 50 ML IV SCH (04:43)
[2021-05-01] MEDS: methylPREDNISolone 60 MG in SYRINGE 0 ML IV SCH ×2 (05:55→20:41)
[2021-05-01 08:25] LABS: Hematocrit (blood only) 37.4 % (42-52); Hemoglobin 12.8 g/dL (14.0-18.0); Mean Corpuscular Hemoglobin 28.8 pg (25-34); RDW Coefficient of Variation 14.3 % (11.5-14.5); RDW Standard Deviation 44.1 fL (36.4-46.3); Red Blood Count 4.45 M/uL (4.7-6.1); White Blood Count 20.67 K/uL (4.8-10.8)
[2021-05-01 08:37] LABS: Eosinophils # (auto) 0.01 K/uL (0-0.5); Immature Granulocytes # (auto) 0.71 K/uL (0.00-0.02); Immature Granulocytes % (auto) 3.4 %; Lymphocytes # (auto) 1.89 K/uL (1.2-3.4); Lymphocytes % (auto) 9.1 %; Mean Corpuscular Hgb Conc 34.2 g/dL (32-36); Mean Platelet Volume 12.5 fL (7.4-10.4); Monocytes # (auto) 0.61 K/uL (0.11-0.59); Neutrophils # (auto) 17.25 K/uL (1.4-6.5); Neutrophils % (auto) 83.5 %; Nucleated RBC # (auto) 0.09 K/uL (0-0); Nucleated RBC % (auto) 0.5 %; Platelet Count 95 K/uL (130-400); Platelet Estimate Decreased (Normal); Toxic Vacuolation 1+
[2021-05-01 08:48] LABS: Albumin Level 1.8 gm/dl (3.4-5.0); BUN Creatinine Ratio 31.3 (10-20); C Reactive Protein 5.15 mg/dl (0-0.29); Calcium 7.7 mg/dl (8.5-10.1); Creatinine Clr Calc Pharmacy 133.7 ml/min; Est GFR (African American) 120.3 ml/min; Est GFR (Non-African American) 103.8 ml/min; Magnesium 2.5 mg/dl (1.8-2.4); Potassium 4.1 mmol/L (3.5-5.1)
[2021-05-01 08:51] LABS: Albumin Globulin Ratio 0.3 (0.9-2); Globulin 5.5 gm/dl (2.5-4.0); Total Protein 7.3 gm/dl (6.4-8.2)
[2021-05-01] MEDS ORDERED: FUROSEMIDE INJ 20 MG/2 ML VIAL IV ONE (08:54)
[2021-05-01] MEDS: ENOXAPARIN INJ 40 MG/0.4 ML SYR SQ SCH ×2 (08:57→20:41)
[2021-05-01] MEDS: SUCRALFATE 1 GM/10 ML UDC PO SCH ×4 (08:57→20:40)
[2021-05-01] MEDS: CHOLECALCIFEROL 1,000 UNITS 25 MCG TAB PO SCH (08:57)
[2021-05-01] MEDS: ASPIRIN 325 MG ECTAB PO SCH (08:57)
[2021-05-01] MEDS: ZINC SULFATE 220 MG CAPSULE PO SCH (08:57)
[2021-05-01] MEDS: PANTOprazole 40 MG TAB PO SCH ×2 (08:57→20:41)
[2021-05-01] MEDS: INSULIN ASPART PER UNIT SC SCH ×4 (09:20→21:05)
[2021-05-01] MEDS: INSULIN GLARGINE SOLOSTAR 100 UNITS/ML 3 ML PEN SC SCH ×2 (09:21→23:17)
[2021-05-01 09:29] LABS: Bilirubin,Total 0.5 mg/dl (0.2-1)
[2021-05-01] MEDS: DOXYCYCLINE HYCLATE 100 MG in DEXTROSE 5% 100 ML IV SCH ×2 (09:51→23:08)
--- NOTE | 2021-05-01 11:41 | Hospitalist Progress Note ---
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 IMPROVED. had COVID-19 infection in 02/2021 - fully resolved. then with numerous symptoms/signs developing late March 2021 - fevers, chills, headaches, conjunctivitis, diffuse rash, numerous lab abnormalities c/w marked inflammation, positive troponin, etc. previous attending Dr Diallo spoke with [facility] Rheumatology. given the clinical picture decision made to Rx for MIS-A with IVIG and high-dose steroids. IVIG given 04/28/21. solumedrol IV started 04/28/21. remains on solumedrol 60mg IV TID. will wean to BID dosing today. remains on aspirin, DVT proph with lovenox, etc. troponin cont to trend down. crp MUCH improved today; peak was 25, now 5. no fever in 72+ hours. patient with cardiac involvement as evidenced by his +troponin with peak nearly 7. fortunately echo on 04/27/21 with preserved EF. no symptoms of pericarditis at this time. repeat echo again with preserved EF. [place] [facility] [place] - no specific cardiac recs at this time. appreciate pulmonary consult - continue diuresis, await MICHELLE/RF/anti-CCP ab's, cont steroids. spoke with [facility] in [place] this am - they have not seen many cases of MIS-A; however, they agree with plan as above recommended weaning IV steroids as tolerated here - then 40mg prednisone/day at d/c - then rheum f/u within a week post-d/c [facility] - [facility]) cont supportive care. repeat crp, lfts, etc in am. (2) Pneumonia: Plan: as seen on chest CT. cont to treat for possible bacterial pneumonia - cont with IV rocephin with doxy. day #5 of such. blood cx's remain negative. (3) Elevated troponin: Plan: Peak 6.9. Now 2. Echo 04/27/21 noted (preserved EF). repeat limited echo today again w/ preserved EF. cardiology consult appreciated. myocarditis/cardiac involvement from MIS-A? nothing further from cardiology standpoint today. cont gentle diuresis. will give another 20mg of IV lasix today. (4) Thrombocytopenia: Plan: 2nd #1 had resolved with steroids, then low again today - uncertain why either way - cont steroids cbc daily (5) LFTs abnormal: Plan: 2nd #1 mildly high but stable repeat am (6) Acute dehydration: Plan: resolved. (7) DVT prophylaxis: Plan: Lovenox 40mg BID dopplers neg for DVT in either leg (8) Acute respiratory failure with hypoxia: Plan: 2nd to pneumonia + pulmonary edema/volume overload. Treating both issues. stable. improving. (9) Pleural effusion: Plan: b/l dikatherinee (10) COVID: Plan: initial dx 02/2021 - fully recovered from his illness then now with suspected MIS-A as above (11) Hyponatremia: Plan: resolved (12) Prediabetes: Plan: a1c 6% c/w pre-DM discussed diagnosis with patient diabetes education consult cont lantus BID - tight HS lantus tighten novolog (13) GERD (gastroesophageal reflux disease): Plan: PPI twice daily carafate qid stable improved Plan: extensively updated by phone yesterday and today insomnia- melatonin 6mg HS PT consult done - outpatient therapy advised Admission and Anticipated Discharge Date Admission Date: April 26, 2021 Subjective pt feeling better today less body aches legs weak but are stronger today appetite robust still coughing and still with dyspnea but improved rash is resolving tele overnight - NSR he is pleased with progress I spoke with [facility] rheumatology in [place] today - advised ongoing steroids here, taper to PO prednisone, then ~40mg/day of such at d/c with rheum f/u patient without any new complaints Review of Systems Review of Systems: gen - no fevers or chills cv - no orthopnea or pain pulm - no hemoptysis GI - no further reflux/dyspepsia - no complaints neuro - no headaches Physical Exam Physical Exam: gen - no acute distress, looks better than yesterday eyes - conjunctival and scleral injection improved today; no drainage mouth - MMM; no lesions heart - RRR, s1 s2, no murmur lungs - mild rales RUL anteriorly, no wheeze, no increased work of breathing abd - soft, spleen palpable, BS+, NT, liver not enlarged ext - no edema, pulses 2+ b/l skin - diffuse erythematous rash on torso MUCH improved; rash on arms - resolving; legs - marked improvement neuro - strength b/l arms 5/5; leg strength today 08/29 Results & Data Results & Data ([facility]) Vital Signs (Past 12 Hours) Vital Signs Temp Pulse Pulse Resp BP Pulse Ox 05/01/21 09:23 67 05/01/21 07:38 36.9 C 79 21 133/74 91 05/01/21 03:13 36.9 C 75 20 119/62 92 Laboratory Results Laboratory Results - last 24 hr 04/30/21 04/30/21 04/30/21 12:03 16:54 20:08 WBC RBC Hgb Hct MCV MCH MCHC RDW Std Deviation RDW Coeff of Rhoda Plt Count MPV Immature Gran % (Auto) Neut % (Auto) Lymph % (Auto) Mckinley % (Auto) Eos % (Auto) Baso % (Auto) Neut # (Auto) Lymph # (Auto) Mckinley # (Auto) Eos # (Auto) Baso # (Auto) Immature Gran # (Auto) Absolute Nucleated RBC Nucleated RBC % (auto) Toxic Vacuolation Platelet Estimate Sodium Potassium Chloride Carbon Dioxide Anion Gap BUN Creatinine Est Cr Clr Drug Dosing Est GFR ( Amer) Est GFR (Non-Af Amer) BUN/Creatinine Ratio Glucose POC Glucose 226 H 230 H Calcium Magnesium Total Bilirubin AST ALT Alkaline Phosphatase Total Creatine Kinase 49 C-Reactive Protein Total Protein Albumin Globulin Albumin/Globulin Ratio 05/01/21 05/01/21 05/01/21 07:37 07:59 07:59 WBC 20.67 H RBC 4.45 L Hgb 12.8 L Hct 37.4 L MCV 84.0 MCH 28.8 MCHC 34.2 RDW Std Deviation 44.1 RDW Coeff of Rhoda 14.3 Plt Count 95 L MPV 12.5 H Immature Gran % (Auto) 3.4 Neut % (Auto) 83.5 Lymph % (Auto) 9.1 Mckinley % (Auto) 3.0 Eos % (Auto) 0.0 Baso % (Auto) 1.0 Neut # (Auto) 17.25 H Lymph # (Auto) 1.89 Mckinley # (Auto) 0.61 H Eos # (Auto) 0.01 Baso # (Auto) 0.20 Immature Gran # (Auto) 0.71 H Absolute Nucleated RBC 0.09 H Nucleated RBC % (auto) 0.5 Toxic Vacuolation 1+ Platelet Estimate Decreased L Sodium 135 L Potassium 4.1 Chloride 103 Carbon Dioxide 29 Anion Gap 3.0 BUN 31 H Creatinine 0.98 Est Cr Clr Drug Dosing 133.7 Est GFR ( Amer) 120.3 Est GFR (Non-Af Amer) 103.8 BUN/Creatinine Ratio 31.3 H Glucose 190 H POC Glucose 163 H Calcium 7.7 L Magnesium 2.5 H Total Bilirubin 0.5 AST 54 H ALT 112 H Alkaline Phosphatase 87 Total Creatine Kinase C-Reactive Protein 5.15 H Total Protein 7.3 Albumin 1.8 L Globulin 5.5 H Albumin/Globulin Ratio 0.3 L PG Care Time/CCT Total # of Minutes Spent Total Time Spent with Patient: Total time spent is greater than 50% in coordination of care (as documented) at patient's floor/unit and/or counseling patient: Coding Level of Care Code 44892 Subseq Hosp Care Lvl 3 Diagnoses 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
[2021-05-01] MEDS: MELATONIN 3 MG TAB PO SCH (20:41)
[2021-05-01] MEDS: ACETAMINOPHEN 325 MG TAB PO PRN (22:41)
[2021-05-02] MEDS: cefTRIAXone SODIUM 2,000 MG in DEXTROSE 5% 50 ML IV SCH (05:44)
[2021-05-02] MEDS: INSULIN ASPART PER UNIT SC SCH ×4 (09:22→21:09)
[2021-05-02 09:29] LABS: D Dimer 1550 ug/L FEU (0-500)
[2021-05-02] MEDS: CHOLECALCIFEROL 1,000 UNITS 25 MCG TAB PO SCH (09:38)
[2021-05-02] MEDS: ENOXAPARIN INJ 40 MG/0.4 ML SYR SQ SCH ×2 (09:38→21:12)
[2021-05-02] MEDS: ASPIRIN 325 MG ECTAB PO SCH (09:38)
[2021-05-02] MEDS: INSULIN GLARGINE SOLOSTAR 100 UNITS/ML 3 ML PEN SC SCH ×2 (09:40→21:11)
[2021-05-02] MEDS: methylPREDNISolone 60 MG in SYRINGE 0 ML IV SCH ×2 (09:41→21:12)
[2021-05-02 09:43] LABS: Basophils # (auto) 0.04 K/uL (0-0.2); Basophils % (auto) 0.2 %; Eosinophils # (auto) 0.05 K/uL (0-0.5); Eosinophils % (auto) 0.3 %; Hematocrit (blood only) 40.9 % (42-52); Hemoglobin 13.6 g/dL (14.0-18.0); Immature Granulocytes # (auto) 0.93 K/uL (0.00-0.02); Immature Granulocytes % (auto) 4.9 %; Lymphocytes # (auto) 1.66 K/uL (1.2-3.4); Lymphocytes % (auto) 8.7 %; Mean Corpuscular Hemoglobin 28.6 pg (25-34); Mean Corpuscular Hgb Conc 33.3 g/dL (32-36); Mean Corpuscular Volume 86.1 fL (80-100); Mean Platelet Volume 12.8 fL (7.4-10.4); Monocytes # (auto) 0.17 K/uL (0.11-0.59); Monocytes % (auto) 0.9 %; Neutrophils # (auto) 16.16 K/uL (1.4-6.5); Nucleated RBC # (auto) 0.11 K/uL (0-0); Nucleated RBC % (auto) 0.6 %; Platelet Count 76 K/uL (130-400); Platelet Estimate Decreased (Normal); RDW Coefficient of Variation 14.4 % (11.5-14.5); RDW Standard Deviation 45.2 fL (36.4-46.3); Red Blood Count 4.75 M/uL (4.7-6.1); White Blood Count 19.01 K/uL (4.8-10.8)
[2021-05-02] MEDS: PANTOprazole 40 MG TAB PO SCH ×2 (09:43→21:13)
[2021-05-02] MEDS: SUCRALFATE 1 GM/10 ML UDC PO SCH ×4 (09:44→21:13)
[2021-05-02] MEDS: ZINC SULFATE 220 MG CAPSULE PO SCH (09:45)
[2021-05-02 09:46] LABS: Albumin Level 1.8 gm/dl (3.4-5.0); BUN Creatinine Ratio 26.4 (10-20); Potassium 3.9 mmol/L (3.5-5.1)
[2021-05-02 09:56] LABS: Albumin Globulin Ratio 0.3 (0.9-2); Bilirubin,Total 0.7 mg/dl (0.2-1); C Reactive Protein 3.91 mg/dl (0-0.29); Thyroid Stimulating Hormone 2.99 uIu/ml (0.300-4.500); Total Protein 7.8 gm/dl (6.4-8.2)
[2021-05-02] MEDS ORDERED: FUROSEMIDE INJ 20 MG/2 ML VIAL IV ONE (10:22)
[2021-05-02] MEDS ORDERED: POTASSIUM CHLORIDE CRTAB 20 MEQ TABCR PO STA (10:22)
[2021-05-02] MEDS: SENNA 8.6 MG TAB PO SCH (10:47)
[2021-05-02] MEDS: POLYETHYLENE (MIRALAX) 17 GM PACK PO SCH (10:48)
[2021-05-02] MEDS: DOXYCYCLINE HYCLATE 100 MG in DEXTROSE 5% 100 ML IV SCH ×2 (10:55→21:17)
--- NOTE | 2021-05-02 13:06 | Hospitalist Progress Note ---
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 continues to improve. had COVID-19 infection in 02/2021 - fully resolved. then with numerous symptoms/signs developing late March 2021 - fevers, chills, headaches, conjunctivitis, diffuse rash, numerous lab abnormalities c/w marked inflammation, positive troponin, etc. previous attending Dr Diallo [facility] Rhe[facility]. given the clinical picture decision made to Rx for MIS-A with IVIG and high-dose steroids. IVIG given 04/28/21. solumedrol 60mg IV TID started 04/28/21. weaned to BID dosing on 05/01/21. no wean today, but perhaps can do so again on 05/03/21. remains on aspirin, DVT proph with lovenox, etc. troponin had peaked and trended down. CRP continues to trend down; peak was 25, now 3. no true fever spike in 4 days (only 1 low-grade temp during that span). patient with cardiac involvement as evidenced by his +troponin with peak nearly 7. fortunately echo on 04/27/21 with preserved EF. no symptoms of pericarditis at this time. a repeat echo again with preserved EF. appreciate [facility] Cardiology consult - no specific cardiac recs at this time. appreciate pulmonary consult - continue diuresis, await MICHELLE/RF/anti-CCP ab's, cont steroids. spoke with [facility] in [place] 05/01/21 - they have not seen many cases of MIS-A; however, they agree with plan as above they recommended weaning IV steroids as tolerated here - then 40mg prednisone/day at d/c - then rheum f/u within a week post-d/c ([facility] - [facility]) cont supportive care. repeat crp, lfts, etc in am. (2) Pneumonia: Plan: as seen on chest CT. cont to treat for possible bacterial pneumonia - cont with IV rocephin with doxy. day #6 of such. plan to stop IV abx after doses on day #7. blood cx's negative. o2 has been weaned off. (3) Elevated troponin: Plan: Peak 6.9. Now 2. Echo 04/27/21 noted (preserved EF). repeat limited echo again w/ preserved EF. cardiology consult appreciated. myocarditis/cardiac involvement from MIS-A? nothing further from cardiology standpoint today. cont gentle diuresis. will give another 20mg of IV lasix today. BUN / Cr remain stable. (4) Thrombocytopenia: Plan: 2nd #1 continues to remain mild-moderately low either way - cont steroids cbc daily if the platelets remain refractory consider consult with hematology (5) LFTs abnormal: Plan: 2nd #1 mildly high but stable and improving nicely repeat am (6) Acute dehydration: Plan: resolved. (7) DVT prophylaxis: Plan: Lovenox 40mg BID dopplers neg for DVT in either leg (8) Acute respiratory failure with hypoxia: Plan: 2nd to pneumonia + pulmonary edema/volume overload. Treating both issues. stable. resolved, off o2. (9) Pleural effusion: Plan: b/l cont to diurese (10) COVID: Plan: initial dx 02/2021 - fully recovered from his illness then now with suspected MIS-A as above (11) Hyponatremia: Plan: resolved (12) Prediabetes: Plan: a1c 6% c/w pre-DM discussed diagnosis with patient diabetes education consult cont lantus BID tighten novolog consider metformin at discharge since he will be on daily prednisone and sugars likely to be high because of such (13) GERD (gastroesophageal reflux disease): Plan: PPI twice daily carafate qid stable improved (14) Abdominal pain: Plan: post-prandial pain -- coming/going 2nd to GERD? cont PPI/carafate 2nd to constipation? add senna/miralax pancreatitis in setting of MIS-A? check lipase in am (15) Acute diastolic CHF (congestive heart failure): Plan: nearly resolved suspect 1 more day of lasix on 05/03 then d/c diuretics of note - echo x 2 with preserved EF despite the MIS-A appreciate cardiology consult should not have any long-term cardiac issues but will need very close f/u Plan: extensively updated by phone yesterday and again today insomnia- melatonin 6mg HS; also lunesta 1mg hs PT consult done - outpatient therapy advised cont to progress Admission and Anticipated Discharge Date Admission Date: April 26, 2021 Subjective patient had low-grade fever last evening associated with headache once temperature normalized his headache resolved he again did not sleep well last night tele again remains normal he continues with fatigue, but overall is feeling some better appetite good rash nearly resolved myalgias improved energy slightly better dyspnea improved cough remains but improved Review of Systems Review of Systems: gen - low-grade fever last pm; none since cv - no orthopnea or chest pain pulm - cough, mild HARO GI - still w/ occasional stomach discomfort after eating - often 15-20 minutes post-meal; finally had a bowel movement this am, the first in a while Physical Exam Physical Exam: gen - no acute distress, sitting in chair; best he has looked all week eyes - conjunctival and scleral injection nearly resolved mouth - MMM; no lesions heart - RRR, s1 s2, no murmur lungs - decreased BS bases, otherwise CTA b/l with no rales or wheeze abd - soft, spleen tip palpable, BS+, NT, liver not enlarged ext - no edema, pulses 2+ b/l skin - diffuse erythematous rash on torso/arms/legs - just about resolved; rash on both cheeks resolved neuro - strength b/l arms 5/5; leg strength 5/5 b/l Results & Data Results & Data ([facility]) Vital Signs (Past 12 Hours) Vital Signs Temp Pulse Pulse Resp BP Pulse Ox 05/02/21 11:50 36.8 C 106 H 19 140/89 93 05/02/21 07:48 36.5 C 77 18 133/82 94 05/02/21 04:00 36.8 C 85 20 114/56 L 94 05/02/21 03:37 99 H Laboratory Results Laboratory Results - last 24 hr 05/01/21 05/01/21 05/02/21 16:20 20:36 07:52 WBC RBC Hgb Hct MCV MCH MCHC RDW Std Deviation RDW Coeff of Rhoda Plt Count MPV Immature Gran % (Auto) Neut % (Auto) Lymph % (Auto) [place]ock % (Auto) Eos % (Auto) Baso % (Auto) Neut # (Auto) Lymph # (Auto) [place] # (Auto) Eos # (Auto) Baso # (Auto) Immature Gran # (Auto) Absolute Nucleated RBC Nucleated RBC % (auto) Platelet Estimate D-Dimer Sodium Potassium Chloride Carbon Dioxide Anion Gap BUN Creatinine Est Cr Clr Drug Dosing Est GFR ( Amer) Est GFR (Non-Af Amer) BUN/Creatinine Ratio Glucose POC Glucose 210 H 132 H 106 H Calcium Total Bilirubin AST ALT Alkaline Phosphatase C-Reactive Protein Total Protein Albumin Globulin Albumin/Globulin Ratio 25-OH Vitamin D Total TSH 05/02/21 05/02/21 05/02/21 08:43 08:43 08:43 WBC 19.01 H RBC 4.75 Hgb 13.6 L Hct 40.9 L MCV 86.1 MCH 28.6 MCHC 33.3 RDW Std Deviation 45.2 RDW Coeff of Rhoda 14.4 Plt Count 76 L MPV 12.8 H Immature Gran % (Auto) 4.9 Neut % (Auto) 85.0 Lymph % (Auto) 8.7 Glascock % (Auto) 0.9 Eos % (Auto) 0.3 Baso % (Auto) 0.2 Neut # (Auto) 16.16 H Lymph # (Auto) 1.66 Glascock # (Auto) 0.17 Eos # (Auto) 0.05 Baso # (Auto) 0.04 Immature Gran # (Auto) 0.93 H Absolute Nucleated RBC 0.11 H Nucleated RBC % (auto) 0.6 Platelet Estimate Decreased L D-Dimer 1550 H* Sodium 137 Potassium 3.9 Chloride 101 Carbon Dioxide 32 Anion Gap 4.0 BUN 27 H Creatinine 1.01 Est Cr Clr Drug Dosing 130.0 Est GFR ( Amer) 116.0 Est GFR (Non-Af Amer) 100.0 BUN/Creatinine Ratio 26.4 H Glucose 121 H POC Glucose Calcium 8.0 L Total Bilirubin 0.7 AST 30 ALT 93 H Alkaline Phosphatase 83 C-Reactive Protein 3.91 H Total Protein 7.8 Albumin 1.8 L Globulin 6.0 H Albumin/Globulin Ratio 0.3 L 25-OH Vitamin D Total TSH 2.990 05/02/21 05/02/21 08:43 11:49 WBC RBC Hgb Hct MCV MCH MCHC RDW Std Deviation RDW Coeff of Rhoda Plt Count MPV Immature Gran % (Auto) Neut % (Auto) Lymph % (Auto) [place]ock % (Auto) Eos % (Auto) Baso % (Auto) Neut # (Auto) Lymph # (Auto) [place] # (Auto) Eos # (Auto) Baso # (Auto) Immature Gran # (Auto) Absolute Nucleated RBC Nucleated RBC % (auto) Platelet Estimate D-Dimer Sodium Potassium Chloride Carbon Dioxide Anion Gap BUN Creatinine Est Cr Clr Drug Dosing Est GFR ( Amer) Est GFR (Non-Af Amer) BUN/Creatinine Ratio Glucose POC Glucose 256 H Calcium Total Bilirubin AST ALT Alkaline Phosphatase C-Reactive Protein Total Protein Albumin Globulin Albumin/Globulin Ratio 25-OH Vitamin D Total 38.6 TSH PG Care Time/CCT Total # of Minutes Spent Total Time Spent with Patient: Total time spent is greater than 50% in coordination of care (as documented) at patient's floor/unit and/or counseling patient: Coding Level of Care Code 02280 Subseq Hosp Care Lvl 3 Diagnoses 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
[2021-05-02] MEDS: MELATONIN 3 MG TAB PO SCH (21:11)
[2021-05-02] MEDS: ESZOPICLONE 1 MG TAB PO SCH (23:31)
[2021-05-03] MEDS: cefTRIAXone SODIUM 2,000 MG in DEXTROSE 5% 50 ML IV SCH (03:53)
[2021-05-03] MEDS: INSULIN ASPART PER UNIT SC SCH ×4 (08:20→21:00)
[2021-05-03] MEDS: ASPIRIN 325 MG ECTAB PO SCH (08:30)
[2021-05-03] MEDS: methylPREDNISolone 60 MG in SYRINGE 0 ML IV SCH (08:30)
[2021-05-03] MEDS: CHOLECALCIFEROL 1,000 UNITS 25 MCG TAB PO SCH (08:31)
[2021-05-03] MEDS: ENOXAPARIN INJ 40 MG/0.4 ML SYR SQ SCH ×2 (08:31→20:30)
[2021-05-03] MEDS: ZINC SULFATE 220 MG CAPSULE PO SCH (08:31)
[2021-05-03] MEDS: PANTOprazole 40 MG TAB PO SCH ×2 (08:31→20:33)
[2021-05-03] MEDS: SUCRALFATE 1 GM/10 ML UDC PO SCH ×4 (08:32→22:13)
[2021-05-03] MEDS: INSULIN GLARGINE SOLOSTAR 100 UNITS/ML 3 ML PEN SC SCH ×2 (08:32→21:35)
[2021-05-03] MEDS: POLYETHYLENE (MIRALAX) 17 GM PACK PO SCH (08:32)
[2021-05-03] MEDS: SENNA 8.6 MG TAB PO SCH (08:32)
[2021-05-03 08:38] LABS: Hematocrit (blood only) 38.5 % (42-52); Hemoglobin 12.8 g/dL (14.0-18.0); Mean Corpuscular Hemoglobin 28.8 pg (25-34); Mean Corpuscular Hgb Conc 33.2 g/dL (32-36); Mean Corpuscular Volume 86.7 fL (80-100); Mean Platelet Volume 13.8 fL (7.4-10.4); Platelet Count 78 K/uL (130-400); Platelet Estimate Decreased (Normal); RDW Coefficient of Variation 14.6 % (11.5-14.5); RDW Standard Deviation 46.1 fL (36.4-46.3); Red Blood Count 4.44 M/uL (4.7-6.1)
[2021-05-03 08:51] LABS: BUN Creatinine Ratio 31.4 (10-20); C Reactive Protein 3.12 mg/dl (0-0.29); Calcium 7.8 mg/dl (8.5-10.1); Creatinine Clr Calc Pharmacy 153.2 ml/min; Est GFR (African American) 136.5 ml/min; Est GFR (Non-African American) 117.7 ml/min; Potassium 4.5 mmol/L (3.5-5.1)
[2021-05-03] MEDS: DOXYCYCLINE HYCLATE 100 MG in DEXTROSE 5% 100 ML IV SCH ×2 (09:17→21:49)
[2021-05-03] MEDS ORDERED: FUROSEMIDE INJ 20 MG/2 ML VIAL IV ONE (09:50)
--- NOTE | 2021-05-03 10:08 | Hospitalist Progress Note ---
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 continues to improve. had COVID-19 infection in 02/2021 - fully resolved. then with numerous symptoms/signs developing late March 2021 - fevers, chills, headaches, conjunctivitis, diffuse rash, numerous lab abnormalities c/w marked inflammation, positive troponin, etc. previous attending Dr [facility]. given the clinical picture decision made to Rx for MIS-A with IVIG and high-dose steroids. IVIG given 04/28/21. solumedrol 60mg IV TID started 04/28/21. weaned to BID dosing on 05/01/21. will wean back to 40mg BID 05/03/21 with plans for Prednisone 40mg daily starting tomorrow remains on aspirin, DVT proph with lovenox continue to watch platelets as they are in 70s troponin had peaked and trended down. CRP remains low at 3 no true fever spike in 5 days patient with cardiac involvement as evidenced by his +troponin with peak nearly 7. fortunately echo on 04/27/21 with preserved EF. no symptoms of pericarditis at this time. a repeat echo again with preserved EF. appreciate [facility] Cardiology consult - no specific cardiac recs at this time. appreciate pulmonary consult - continue diuresis, await MICHELLE/RF/anti-CCP ab's, cont steroids. spoke with [facility] in [place] 05/01/21 - they have not seen many cases of MIS-A; however, they agree with plan as above they recommended weaning IV steroids as tolerated here - then 40mg prednisone/day at d/c - then rheum f/u within a week post-d/c ([facility] - [facility]) check labs in AM try for discharge to home on Prednisone (2) Pneumonia: Plan: as seen on chest CT. cont to treat for possible bacterial pneumonia - cont with IV rocephin with doxy. day #7 of such. no further antibiotics after today blood cx's negative. o2 has been weaned off, saturations 96% room air (3) Elevated troponin: Plan: Peak 6.9. trended down Echo 04/27/21 noted (preserved EF). repeat limited echo again w/ preserved EF. cardiology consult appreciated. myocarditis/cardiac involvement from MIS-A? nothing further from cardiology standpoint today. cont gentle diuresis. one more dose of Lasix 20mg IV today (4) Thrombocytopenia: Plan: 2nd #1 continues to remain mild-moderately low in [address] - cont steroids cbc daily (5) LFTs abnormal: Plan: 2nd #1 mildly high but stable and improving nicely repeat am (6) Acute dehydration: Plan: resolved. (7) DVT prophylaxis: Plan: Lovenox 40mg BID dopplers neg for DVT in either leg (8) Acute respiratory failure with hypoxia: Plan: 2nd to pneumonia + pulmonary edema/volume overload. Treating both issues. stable. resolved, off o2. (9) Pleural effusion: Plan: b/l cont to diurese (10) COVID: Plan: initial dx 02/2021 - fully recovered from his illness then now with suspected MIS-A as above (11) Hyponatremia: Plan: resolved (12) Prediabetes: Plan: a1c 6% c/w pre-DM discussed diagnosis with patient diabetes education consult cont lantus BID, sugars are stable tighten novolog consider metformin at discharge since he will be on daily prednisone and sugars likely to be high because of such follow up with PCP (13) GERD (gastroesophageal reflux disease): Plan: PPI twice daily carafate qid stable improved (14) Abdominal pain: Plan: post-prandial pain -- coming/going 2nd to GERD? cont PPI/carafate 2nd to constipation? add senna/miralax no complaints today (15) Acute diastolic CHF (congestive heart failure): Plan: nearly resolved Lasix 20mg IV today, hold off tomorrow and reassess of note - echo x 2 with preserved EF despite the MIS-A appreciate cardiology consult should not have any long-term cardiac issues but will need very close f/u Plan: insomnia- melatonin 6mg HS; also lunesta 1mg hs PT consult done - outpatient therapy advised tentatively plan for discharge to home tomorrow, check labs in AM Admission and Anticipated Discharge Date Admission Date: April 26, 2021 Subjective patient doing well, sitting up in chair appetite is normal, eating all his food, no GI complaints breathing is stable, saturations are 94-96% on room air, minimal cough (just when he uses flutter valve) reviewed his chart and labs CRP is still 3.1, Cr stable, K is stable, glucose < 200 WBC is 17k but coming down, on Solu Medrol Hb stable, plts low in 70's but stable discussed that this is last day of IV antibiotics, will give Lasix will see if he feels well enough to be discharged tomorrow he agrees with plan Review of Systems Review of Systems: All systems reviewed & are unremarkable except as noted in Subjective Constitutional: + weakness; no fever, no chills, no sweats and no fatigue Respiratory: + cough; no dyspnea, no dyspnea on exertion and no sputum production Cardiovascular: no chest pain Gastrointestinal: no abdominal pain, no nausea, no vomiting, no constipation and no diarrhea/loose stools Physical Exam Physical Exam: General: well developed, well nourished, no acute distress, comfortable Neck: supple, trachea midline, normal thyroid Lungs: clear to auscultation bilaterally, normal respiratory effort, no accessory muscle use, no distress Heart: regular S1 and S2, no murmur, peripheral pulses normal, capillary refill normal, no edema Abdomen: soft, NT, ND, + BS, no hepatomegaly, normal to percussion Extremities: normal in appearance, no cyanosis, no petechiae, strength is 5/5 bilaterally Neuro: awake, cooperative, moves all extremities, no focal motor deficits, CN II-XII intact, sensation in extremities intact, normal speech Skin: warm, dry, no rash, normal turgor, several tattoos Psych: Awake, alert oriented x 3, euthymic affect Results & Data Results & Data ([facility]) Vital Signs (Past 12 Hours) Vital Signs Temp Pulse Pulse Resp BP BP Pulse Ox 05/03/21 07:43 36.8 C 78 22 117/65 90 05/03/21 03:11 36.9 C 66 18 131/78 91 05/03/21 01:11 84 05/02/21 22:57 36.9 C 88 17 120/71 91 Laboratory Results Laboratory Results - last 24 hr 05/02/21 05/02/21 05/02/21 11:49 16:43 19:46 WBC RBC Hgb Hct MCV MCH MCHC RDW Std Deviation RDW Coeff of Rhoda Plt Count MPV Platelet Estimate Sodium Potassium Chloride Carbon Dioxide Anion Gap BUN Creatinine Est Cr Clr Drug Dosing Est GFR ( Amer) Est GFR (Non-Af Amer) BUN/Creatinine Ratio Glucose POC Glucose 256 H 201 H 127 H Calcium AST ALT C-Reactive Protein Lipase 05/03/21 05/03/21 05/03/21 07:36 07:36 07:42 WBC 17.00 H RBC 4.44 L Hgb 12.8 L Hct 38.5 L MCV 86.7 MCH 28.8 MCHC 33.2 RDW Std Deviation 46.1 RDW Coeff of Rhoda 14.6 H Plt Count 78 L MPV 13.8 H Platelet Estimate Decreased L Sodium 135 L Potassium 4.5 D Chloride 101 Carbon Dioxide 29 Anion Gap 4.0 BUN 27 H Creatinine 0.85 Est Cr Clr Drug Dosing 153.2 Est GFR ( Amer) 136.5 Est GFR (Non-Af Amer) 117.7 BUN/Creatinine Ratio 31.4 H Glucose 113 H POC Glucose 110 H Calcium 7.8 L AST 23 ALT 80 H C-Reactive Protein 3.12 H Lipase 234 Medications Administered Current Inpatient Medications Acetaminophen (Acetaminophen 325 Mg Tab) 650 mg PO Q4H PRN PRN Reason: pain/fever Stop: 05/27/21 10:01 Last Admin: 05/01/21 22:41 Dose: 650 mg Documented by: Albuterol (Albuterol Hfa 8 Gm Inhaler) 2 puffs INH Q2H PRN PRN Reason: Dyspnea Stop: 05/27/21 03:05 Aspirin (Aspirin 325 Mg Ectab) 325 mg PO QAM [facility] Stop: 05/27/21 14:44 Last Admin: 05/03/21 08:30 Dose: 325 mg Documented by: Calcium Carbonate (Calcium Carbonate 500 Mg Chewable Tab) 500 mg PO QID PRN PRN Reason: Indigestion Stop: 05/28/21 21:19 Last Admin: 04/29/21 03:54 Dose: 500 mg Documented by: Enoxaparin Sodium (Enoxaparin Inj 40 Mg/0.4 Ml Syr) 40 mg SQ BID [facility] Stop: 05/28/21 20:59 Last Admin: 05/03/21 08:31 Dose: 40 mg Documented by: Ergocalciferol (Ergocalciferol 50,000 Units 1250 Mcg Cap) 50,000 units PO Mo@0900 [facility] Stop: 05/28/21 13:59 Last Admin: 04/29/21 09:21 Dose: 50,000 units Documented by: Eszopiclone (Eszopiclone 1 Mg Tab) 1 mg PO HSZ [facility] Stop: 06/01/21 21:59 Last Admin: 05/02/21 23:31 Dose: 1 mg Documented by: Ceftriaxone Sodium 2,000 mg/ (Dextrose) 70 mls @ 100 mls/hr IV Q24H [facility]; Protocol Stop: 05/04/21 03:59 Last Infusion: 05/03/21 04:45 Dose: Infused Documented by: Doxycycline Hyclate 100 mg/ (Dextrose) 110 mls @ 50 mls/hr IV Q12H [facility] Stop: 05/04/21 08:14 Last Admin: 05/03/21 09:17 Dose: 50 mls/hr Documented by: Methylprednisolone 40 mg/ (Syringe) 0.64 mls @ 1.5 mls/min IV BID [facility] Stop: 06/02/21 20:59 Insulin Aspart (Insulin Aspart Per Unit) 0 units SC ACHS [facility] Stop: 05/29/21 16:29 Last Admin: 05/03/21 08:20 Dose: 12 units Documented by: Insulin Glargine (Insulin Glargine Solostar 100 Units/Ml 3 Ml Pen) [facility] Stop: 05/31/21 08:59 Last Admin: 05/03/21 08:32 Dose: 20 units Documented by: Insulin Glargine (Insulin Glargine Solostar 100 Units/Ml 3 Ml Pen) 20 units SC [facility] Stop: 05/31/21 20:59 Last Admin: 05/02/21 21:11 Dose: 20 units Documented by: Melatonin (Melatonin 3 Mg Tab) 6 mg PO [facility] Stop: 05/30/21 20:59 Last Admin: 05/02/21 21:11 Dose: 6 mg Documented by: Morphine Sulfate (Morphine Sulfate 2 Mg/Ml Carp) 2 mg IV Q6H PRN PRN Reason: Pain breakthrough Stop: 05/11/21 10:01 Last Admin: 04/28/21 10:41 Dose: 2 mg Documented by: Ondansetron HCl (Ondansetron Inj 2 Mg/Ml 2 Ml Vial) 4 mg IV Q6H PRN PRN Reason: Nausea Stop: 05/27/21 03:05 Last Admin: 04/30/21 14:47 Dose: 4 mg Documented by: Pantoprazole Sodium (Pantoprazole 40 Mg Tab) 40 mg PO BID ISABELA Stop: 05/29/21 20:59 Last Admin: 05/03/21 08:31 Dose: 40 mg Documented by: Polyethylene Glycol (Polyethylene (Miralax) 17 Gm Pack) 17 gm PO DAILY ISABELA Stop: 06/01/21 10:59 Last Admin: 05/03/21 08:32 Dose: Not Given Documented by: Sennosides (Senna 8.6 Mg Tab) 17.2 mg PO QAM ISABELA Stop: 06/01/21 10:59 Last Admin: 05/03/21 08:32 Dose: Not Given Documented by: Sucralfate (Sucralfate 1 Gm/10 Ml Udc) 1 gm PO QID ISABELA Stop: 05/29/21 16:59 Last Admin: 05/03/21 08:32 Dose: 1 gm Documented by: Vitamin D (Cholecalciferol 1,000 Units 25 Mcg Tab) 2,000 units PO QAM [facility] Stop: 05/29/21 08:59 Last Admin: 05/03/21 08:31 Dose: 2,000 units Documented by: Zinc Sulfate (Zinc Sulfate 220 Mg Capsule) 220 mg PO QAM ISABELA Stop: 05/27/21 08:59 Last Admin: 05/03/21 08:31 Dose: 220 mg Documented by: PG Care Time/CCT Total # of Minutes Spent Total Time Spent with Patient: Total time spent is greater than 50% in coordination of care (as documented) at patient's floor/unit and/or counseling patient: Coding Level of Care Code 57910 Subseq Hosp Care Lvl 3 Diagnoses 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
[2021-05-03] MEDS ORDERED: metFORMIN HCL ER 500 MG TABCR PO SCH (21:00)
[2021-05-03] MEDS ORDERED: methylPREDNISolone 40 MG in SYRINGE 0 ML IV SCH (21:00)
[2021-05-03] MEDS: MELATONIN 3 MG TAB PO SCH (21:38)
[2021-05-03] MEDS: ESZOPICLONE 1 MG TAB PO SCH (21:49)
[2021-05-04 07:49] LABS: Hemoglobin 13.2 g/dL (14.0-18.0); Mean Corpuscular Hemoglobin 28.6 pg (25-34); Mean Corpuscular Volume 86.8 fL (80-100); Mean Platelet Volume 12.6 fL (7.4-10.4); Platelet Count 107 K/uL (130-400); RDW Coefficient of Variation 14.9 % (11.5-14.5); RDW Standard Deviation 45.6 fL (36.4-46.3); Red Blood Count 4.61 M/uL (4.7-6.1); White Blood Count 14.55 K/uL (4.8-10.8)
[2021-05-04 07:57] LABS: BUN Creatinine Ratio 29.1 (10-20); Calcium 8.1 mg/dl (8.5-10.1); Creatinine Clr Calc Pharmacy 141.9 ml/min; Est GFR (African American) 129.8 ml/min; Magnesium 2.4 mg/dl (1.8-2.4); Potassium 4.4 mmol/L (3.5-5.1)
[2021-05-04 08:02] LABS: Bilirubin,Total 0.5 mg/dl (0.2-1); C Reactive Protein 2.24 mg/dl (0-0.29); Phosphorus 3.8 mg/dl (2.5-4.9); Total Protein 7.6 gm/dl (6.4-8.2)
[2021-05-04 08:05] LABS: Albumin Globulin Ratio 0.4 (0.9-2); Globulin 5.6 gm/dl (2.5-4.0)
[2021-05-04] MEDS ORDERED: predniSONE 20 MG TAB PO SCH (09:00)
[2021-05-04] MEDS: INSULIN ASPART PER UNIT SC SCH (09:05)
[2021-05-04] MEDS: CHOLECALCIFEROL 1,000 UNITS 25 MCG TAB PO SCH (09:06)
[2021-05-04] MEDS: PANTOprazole 40 MG TAB PO SCH (09:06)
[2021-05-04] MEDS: ASPIRIN 325 MG ECTAB PO SCH (09:07)
[2021-05-04] MEDS: SENNA 8.6 MG TAB PO SCH (09:07)
[2021-05-04] MEDS: POLYETHYLENE (MIRALAX) 17 GM PACK PO SCH (09:07)
[2021-05-04] MEDS: ZINC SULFATE 220 MG CAPSULE PO SCH (09:07)
[2021-05-04] MEDS: ENOXAPARIN INJ 40 MG/0.4 ML SYR SQ SCH (09:08)
[2021-05-04] MEDS: INSULIN GLARGINE SOLOSTAR 100 UNITS/ML 3 ML PEN SC SCH (09:08)
[2021-05-04] MEDS: SUCRALFATE 1 GM/10 ML UDC PO SCH (09:08)
--- NOTE | 2021-05-04 09:58 | Discharge Summary ---
Date of Service May 04, 2021 Principal Diagnosis MIS-A due to prior COVID infection Discharge Exam General: well developed, well nourished, no acute distress, comfortable Neck: supple, trachea midline, normal thyroid Lungs: clear to auscultation bilaterally, normal respiratory effort, no accessory muscle use, no distress Heart: regular S1 and S2, no murmur, peripheral pulses normal, capillary refill normal, no edema Abdomen: soft, NT, ND, + BS, no hepatomegaly, normal to percussion Extremities: normal in appearance, no cyanosis, no petechiae, strength is 5/5 bilaterally Neuro: awake, cooperative, moves all extremities, no focal motor deficits, CN II-XII intact, sensation in extremities intact, normal speech Skin: warm, dry, no rash, normal turgor, several tattoos Psych: Awake, alert oriented x 3, euthymic affect Discharge Data Allergies Allergy/AdvReac Type Severity Reaction Status Date / Time No Known Allergies Allergy Verified 04/26/21 20:50 Consultations 04/26/21 22:13 ED Decision to Admit Stat 04/29/21 14:53 Consult Pulmonology Routine 04/29/21 16:53 Consult Cardiology Routine 05/04/21 09:57 Consult [facility] environmental sampler Routine Ordered Studies 04/26/21 23:18 CT angio chest PE protocol Stat 04/28/21 18:50 CT angio chest PE protocol Routine 04/30/21 11:52 US venous doppler [facility] Urgent Hospital Course (1) 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 continues to improve. had COVID-19 infection in 02/2021 - fully resolved. then with numerous symptoms/signs developing late March 2021 - fevers, chills, headaches, conjunctivitis, diffuse rash, numerous lab abnormalities c/w marked inflammation, positive troponin, etc. previous attending Dr Diallo spoke with [facility] Rheumatology. given the clinical picture decision made to Rx for MIS-A with IVIG and high-dose steroids. IVIG given 04/28/21. solumedrol 60mg IV TID started 04/28/21. weaned to BID dosing on 05/01/21. will wean back to 40mg BID 05/03/21 with plans for Prednisone 40mg daily continue Prednisone 40mg until follow up with [facility] rheumatology for further instruction remains on aspirin 325mg daily platelets are up to 100k troponin had peaked and trended down. CRP remains low at 2 (trending down each day) no true fever spike in 6 days patient with cardiac involvement as evidenced by his +troponin with peak nearly 7. fortunately echo on 04/27/21 with preserved EF. no symptoms of pericarditis at this time. a repeat echo again with preserved EF. appreciate [facility] Cardiology consult - no specific cardiac recs at this time. appreciate pulmonary consult - continue diuresis, await MICHELLE/RF/anti-CCP ab's, cont steroids. spoke with [facility] in [place] 05/01/21 - they have not seen many cases of MIS-A; however, they agree with plan as above they recommended weaning IV steroids as tolerated here - then 40mg prednisone/day at d/c - then rheum f/u within a week post-d/c ([facility]) (2) Pneumonia: as seen on chest CT. cont to treat for possible bacterial pneumonia - cont with IV rocephin with doxy. day #7 of such. no further antibiotics after today blood cx's negative. o2 has been weaned off, saturations 96% room air (3) Elevated troponin: Peak 6.9. trended down Echo 04/27/21 noted (preserved EF). repeat limited echo again w/ preserved EF. cardiology consult appreciated. myocarditis/cardiac involvement from MIS-A? nothing further from cardiology standpoint today. cont gentle diuresis. one more dose of Lasix 20mg IV today (4) Thrombocytopenia: 2nd #1 continues to remain mildly low but trending up, was > 100k on discharge either way - cont steroids cbc daily (5) LFTs abnormal: 2nd #1 mildly high but stable and improving nicely repeat am (6) Acute dehydration: resolved. (7) DVT prophylaxis: Lovenox 40mg BID dopplers neg for DVT in either leg will be on aspirin 325mg daily on discharge (8) Acute respiratory failure with hypoxia: 2nd to pneumonia + pulmonary edema/volume overload. Treating both issues. stable. resolved, off o2. (9) Pleural effusion: b/l cont to diurese (10) COVID: initial dx 02/2021 - fully recovered from his illness then now with suspected MIS-A as above (11) Hyponatremia: resolved (12) Prediabetes: a1c 6% c/w pre-DM discussed diagnosis with patient diabetes education consult discharge on Metformin ER 500mg daily while on Prednisone instructed to follow low carb diet follow up with PCP (13) GERD (gastroesophageal reflux disease): PPI twice daily carafate qid stable improved (14) Abdominal pain: post-prandial pain -- coming/going 2nd to GERD? cont PPI/carafate 2nd to constipation? add senna/miralax no complaints today (15) Acute diastolic CHF (congestive heart failure): nearly resolved Lasix 20mg IV today, hold off tomorrow and reassess of note - echo x 2 with preserved EF despite the MIS-A appreciate cardiology consult should not have any long-term cardiac issues but will need very close f/u Total Time Total Time Spent Total Time Spent (In Minutes): 33 Discharge Plan Discharge Items Patient Disposition: Home - Self-Care Reason For Visit: COVID-19 PNEUMONIA WITH HYPOXIA Discharge Diagnosis: Multisystem inflammatory response in adult (MIS-A) due to prior COVID infection Thrombocytopenia Condition on Discharge: Good Goals: continue Prednisone follow up with rheumatology with [facility] Activity: Resume your previous activity Driving/Machine Use: No limitations Weightbearing: Full weightbearing Non-emergency contact: Primary Care Provider Call non-emergency contact if: you have any medication questions and your symptoms worsen Follow-up/Referrals: Faraz Parkinson DO [Primary Care Provider] - (one week) Irving Fang MD [Physician] - (1 week) Diet: Carb Consistent or DM2 Addtl Attending Provider Instructions: Medications - PREDNISONE: 40mg daily until rheumatology instructs you to decrease dose - METFORMIN: 500mg in evening, may want to go up to twice a day depending on sugars - PROTONIX: take for the next month to help treat reflux, gastritis - ASPIRIN: 325mg daily for possible cardiac inflammation MIS-A due to COVID responded well to Solu Medrol (steroids) continue on Prednisone labs are improving (WBC coming down, platelets going up, liver studies improving) stay on Prednisone until you follow up with rheumatology Pre-diabetes: Hemoglobin A1c was 6%, this is not diabetic range however, steroids are driving up sugars, treated with insulin while here recommend taking Metformin 500mg in evening while on steroids follow up with PCP please follow low carb diet while taking Prednisone Pending Studies at Discharge: No Stand-Alone Forms: My [facility], Smoking Cessation Medications and DC Order Prescriptions: New prednisone 20 mg Tablet 40 mg PO QAM 30 Days Qty: 60 RF: 0 aspirin [Ecotrin] 325 mg Tablet,Delayed Release (Dr/Ec) 325 mg PO QAM 30 Days Qty: 30 RF: 3 pantoprazole 40 mg Tablet,Delayed Release (Dr/Ec) 40 mg PO DAILY 30 Days Qty: 30 RF: 0 metformin 500 mg Tablet Extended Release 24 Hr 500 mg PO PM 30 Days Qty: 30 RF: 3 Continued ondansetron 4 mg tablet,disintegrating 4 mg PO Q8H PRN (Reason: nausea and vomiting) Qty: 10 RF: 0 Discontinued ibuprofen 200 mg Tablet 800 mg PO Q8H PRN (Reason: FEVER/PAIN) RF: 0 acetaminophen 500 mg Tablet 500 mg PO Q8 MDD FEVER/PAIN PRN (Reason: Pain) RF: 0 Discharge Orders: Discharge Order (Routine); Ordered 05/04/21 Ordered By: Jaylen Ramos/Other Patient Handouts: Prediabetes, 5 Steps for Eating Healthier Admission Data Admit Date/Time: 04/26/21 23:31 Attending Provider: Jaylen Benjamin Admit Provider: Leroy Grissom Primary Care Provider: Faraz Parkinson Other Providers: Leroy Grissom ; Desi Hyman ; Jonh Damon Other Interventions: Discharge Summary Assessment (RN) Last Done: 05/04/21 10:24 Coding Level of Care Code D/C DAY MANAGEMENT >30 MINS Diagnoses 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
[2021-05-08 03:11] LABS: Anti Cardiolipin Ab IgG 2.7 GPL-U/mL; Anti Cardiolipin Ab IgM <2.0 MPL-U/mL; Anti Nuclear Antibody Screen POSITIVE (NEGATIVE); Anti-Cardiolipin Ab IgA <2.0 APL-U/mL; Anti-Centromere Ab <1.0 NEG AI (<1.0 NEG); Anti-SS-A 1.3 POS AI (<1.0 NEG); Anti-SS-B <1.0 NEG AI (<1.0 NEG); Chromatin Antibody <1.0 NEG AI (<1.0 NEG); Complement C3 125 mg/dL (82-185); Cyclic Citrullinated Pep IgG <16 UNITS; DNA ds Crithidia NEGATIVE (NEGATIVE); Microsomal Ab 51 IU/mL (<9); RNP Antibody <1.0 NEG AI (<1.0 NEG); Rheumatoid Factor <14 IU/mL (<14); Scleroderma Anti Scl-70 Ab <1.0 NEG AI (<1.0 NEG); Sm Antibody <1.0 NEG AI (<1.0 NEG)
[2021-05-08 16:17] LABS: ANA Pattern Nuclear, Speckled; ANA Titer 1:40 titer
== END 2021-05-04 11:08 | disposition home or self-care (01) | DRG 545 ==
LOC: ED 19:36 → EDINP 23:31 → SUATTDRO 23:31 → EDINP 04-27 03:06 → 2S 04-27 09:25